=== PATIENT | female | born 1940 | race Caucasian/White ===

== ENCOUNTER 2017-01-22 04:03 | Inpatient (IN) | payer MEDICARE, BC ==
[2017-01-22] VITALS (8 sets, daily range): BP systolic 107–154; BP diastolic 57–80
[~2017-01-22] VITALS: Ht 162.6 cm; Wt 137.0 kg
[2017-01-22 04:14] LABS: ABG BASE EXCESS 1.3; ABG PCO2 67.4 mmHg (35.0-45.0)
[2017-01-22 04:15] LABS: ABG ALLEN TEST POSITIVE
[2017-01-22] MEDS ORDERED: NORCO 5-325 TA1 EAC1 ORAL (04:22)
[2017-01-22] MEDS ORDERED: AMBIEN10 M1 ORAL (04:22)
[2017-01-22] MEDS ORDERED: LASIX80 MG ORAL (04:22)
[2017-01-22] MEDS ORDERED: DUONEB 0.5-3(2.53 ML HHN (04:22)
[2017-01-22] MEDS ORDERED: JANUVIA50 MG ORAL (04:22)
[2017-01-22] MEDS ORDERED: CALCIUM CARBON500 M1 PO (04:22)
[2017-01-22] MEDS ORDERED: HUMALOG100 UNIT/4 SUBQ (04:22)
[2017-01-22] MEDS ORDERED: CARAFATE1 GM/10 M1 ORAL (04:22)
[2017-01-22] MEDS ORDERED: GLUCOTROL XL5 MG ORAL (04:22)
[2017-01-22] MEDS ORDERED: ACETAMINOPHEN325 M1 ORAL (04:22)
[2017-01-22] MEDS ORDERED: DICLOFENAC SOD100 G1 TP (04:22)
[2017-01-22] MEDS ORDERED: EPOGEN10000 UNIT SUBQ (04:22)
[2017-01-22] MEDS ORDERED: ALLOPURINOL300 M1 ORAL (04:22)
[2017-01-22] MEDS ORDERED: FERROUS SULFAT325 MG ORAL (04:22)
[2017-01-22 04:32] LABS: BASOPHILS % (AUTO) 0.6 % (0.0-2.0); EOSINOPHILS % (AUTO) 1.9 % (0.0-3.0); LYMPHOCYTES % (AUTO) 12.7 % (20.0-45.0); MEAN CORPUSCULAR HEMOGLOBIN 25.9 PG (27.0-31.0); MEAN CORPUSCULAR HGB CONC 28.5 G/DL (32.0-36.0); MEAN CORPUSCULAR VOLUME 91 FL (80-99); MEAN PLATELET VOLUME 6.1 FL (6.5-10.1); MONOCYTES % (AUTO) 8.8 % (1.0-10.0); PLATELET COUNT 179 K/UL (150-450); RED BLOOD COUNT 3.53 M/UL (4.20-5.40); WHITE BLOOD COUNT 6.4 K/UL (4.8-10.8)
--- NOTE | 2017-01-22 04:36 | Emergency Room Report ---
History of Present Illness General Chief Complaint: Dyspnea/Respdistress Source: Medical Record Present Illness HPI 76-year-old female coming from retirement history of diabetes, morbid obesity , atrial fibrillation, heart failure, CKG if, nonambulatory, baseline mental status is confused per EMS, presenting with hypoxia. EMS arrived patient was satting 75 on room air came up to 95 with nasal cannula. Patient currently oriented to person only, unable to give full history. No anticoagulations seen on the patient's med list Patient came with DO NOT RESUSCITATE form that was improperly filled out so at this time patient is full code Allergies: Coded Allergies: No Known Allergies (Unverified , 01/22/17) Patient History Past Medical History: see triage record Past Surgical History: none Pertinent Family History: none Reviewed Nursing Documentation: PMH: Agreed, PSxH: Agreed Nursing Documentation-PMH Hx Cardiac Problems: Yes - A FIB,A FLUTTER Hx Hypertension: Yes Hx Diabetes: Yes Hx Gastrointestinal Problems: Yes - GERD,CKD Review of Systems All Other Systems: limited - dementia Physical Exam Vital Signs Date Time Temp Pulse Resp B/P (MAP) Pulse Ox O2 Delivery O2 Flow Rate FiO2 01/22/17 04:00 97.5 93 20 135/66 85 Room Air Sp02 EP Interpretation: reviewed, abnormal - 79 onRA, 100 on NRB General Appearance: other - Elderly obese chronically ill-appearing female, appears to be in respiratory distress, speaking in 2 word sentences, confused Head: normocephalic, atraumatic Eyes: bilateral eye normal inspection, bilateral eye PERRL, bilateral eye EOMI ENT: normal ENT inspection, normal pharynx, dry mucus membranes Neck: normal inspection, full range of motion, supple Respiratory: respiratory distress, other - Limited auscultation due to poor respiratory effort, chest symmetrical Cardiovascular #1: no edema, normal capillary refill, irregularly irregular Cardiovascular #2: 2+ radial (R), 2+ radial (L) Gastrointestinal: normal inspection, non tender, soft, non-distended, no guarding Musculoskeletal: normal inspection, back normal, normal range of motion, non- tender Neurologic: responsive, sensory intact, other - Moving extremities spontaneously and on command. Psychiatric: other - Dementia Skin: normal inspection, normal color, no rash, warm/dry, normal turgor Procedures Critical Care Time Critical Care Time 40 minutes of CC time 76-year-old female with hypoxia VS: Hypoxic and tachypneic Airway patent. PLAN: IV access, labs, lactate, Blood/Urine Cx, Abx BiPAP, antibiotic Anticipate admissionto [facility] CC time also includes review of labs, review of EMR, discussion with family and paperwork from SNF, d/w hospitalist CC could include dosing of pressors, additional Abx CC time does not include procedures Medical Decision Making Diagnostic Impression: Primary Impression: Hypoxia Additional Impressions: Respiratory distress Congestive heart failure UTI (urinary tract infection) ER Course 76-year-old female with pmhx hypertension, diabetes, A. fib, CHF p/w SOB/ hypoxia coming from retirement DDX: CHF exacerbation, ACS, pneumonia, asthma/copd Plan: IV access, cathode washer, nonrebreather obtain basic labs including blood gas, troponin, BNP Nitro, lasix, Will consider BIPAP for persistent or worsening respiratory status Anticipate admission ER course: Patient appears clinically dehydrated, however fluid overloaded on chest x-ray. BNP is elevated. BiPAP started. CO2 on blood gas elevated Hypoxic on room air at 85, 100 on BiPAP Patient's blood pressure not amenable to nitroglycerin Patients condition remains serious. Extensive conversation held with the patient's power of parts analyst Zion Perez ( patients brother), states that patient has had a decline in her mental status during the last 3-4 weeks, patient has stated multiple times to him that she wants to be DNR/DNI, not in her wish to be intubated. Currently we have a DO NOT RESUSCITATE form that is not properly signed, however after conversation held with power of parts analyst, she will remain dnr/dni. his phone number is Disposition: Patient to be admitted to [facility] Patient requires inpatient admission for close monitoring of respiratory status/ continuation of BIPAP, further workup including serial troponin and EKGs, possible diuresis and monitoring of electrolytes. Endorsed to Dr. moore who has accepted patient for admission Please note that this Emergency Department Report was dictated using [employer] technology software, occasionally this can lead to erroneous entry secondary to interpretation by the dictation equipment. Laboratory Tests Test 01/22/17 04:07 01/22/17 04:10 01/22/17 05:40 Arterial Blood pH 7.259 (7.350-7.450) Arterial Blood Partial Pressure CO2 67.4 mmHg (35.0-45.0) *H Arterial Blood Partial Pressure O2 317.4 mmHg (75.0-100.0) H Arterial Blood HCO3 29.5 mmol/L (22.0-26.0) H Arterial Blood Oxygen Saturation 99.6 % (92.0-98.0) H Arterial Blood Base Excess 1.3 Charbel Test Positive White Blood Count 6.4 K/UL (4.8-10.8) Red Blood Count 3.53 M/UL (4.20-5.40) L Hemoglobin 9.1 G/DL (12.0-16.0) L Hematocrit 32.1 % (37.0-47.0) L Mean Corpuscular Volume 91 FL (80-99) Mean Corpuscular Hemoglobin 25.9 PG (27.0-31.0) L Mean Corpuscular Hemoglobin Concent 28.5 G/DL (32.0-36.0) L Red Cell Distribution Width 25.0 % (11.6-14.8) H Platelet Count 179 K/UL (150-450) Mean Platelet Volume 6.1 FL (6.5-10.1) L Neutrophils (%) (Auto) 76.0 % (45.0-75.0) H Lymphocytes (%) (Auto) 12.7 % (20.0-45.0) L Monocytes (%) (Auto) 8.8 % (1.0-10.0) Eosinophils (%) (Auto) 1.9 % (0.0-3.0) Basophils (%) (Auto) 0.6 % (0.0-2.0) Prothrombin Time 11.6 SEC (9.30-11.50) H Prothrombin Time INR 1.1 (0.9-1.1) PTT 25 SEC (23-33) Sodium Level 139 mEQ/L (135-145) Potassium Level 4.2 mEQ/L (3.4-4.9) Chloride Level 94 mEQ/L (98-107) L Carbon Dioxide Level 30 mEQ/L (20-30) Anion Gap 15 (5-15) Blood Urea Nitrogen 67 mg/dL (7-23) H Creatinine 3.3 mg/dL (0.5-0.9) H Estimate Glomerular Filtration Rate mL/min (>60) Glucose Level 80 mg/dL (74-106) Lactic Acid Level 1.20 mmol/L (0.66-2.22) Calcium Level 9.4 mg/dL (8.6-10.2) Total Bilirubin 0.5 mg/dL (0.0-1.2) Aspartate Amino Transferase (AST) 27 U/L (5-40) Alanine Aminotransferase (ALT) 7 U/L (3-33) Alkaline Phosphatase 53 U/L (35-104) Total Creatine Kinase 50 U/L (26-140) Creatine Kinase MB 5.0 ng/mL (< 3.8) H Creatine Kinase MB Relative Index 10.0 Troponin I < 0.30 ng/mL (<=0.30) Pro-B-Type Natriuretic Peptide 33308 pg/mL (0-450) H Total Protein 6.9 g/dL (6.6-8.7) Albumin 3.5 g/dL (3.5-5.2) Globulin 3.4 g/dL Albumin/Globulin Ratio 1.0 (1.0-2.7) Urine Color Yellow Urine Appearance Cloudy Urine pH 5 (4.5-8.0) Urine Specific [place] 1.015 (1.005-1.035) Urine Protein 2+ (NEGATIVE) H Urine Glucose (UA) Negative (NEGATIVE) Urine Ketones Negative (NEGATIVE) Urine Occult Blood 5+ (NEGATIVE) H Urine Nitrite Negative (NEGATIVE) Urine Bilirubin Negative (NEGATIVE) Urine Urobilinogen Normal MG/DL (0.0-1.0) Urine Leukocyte Esterase 3+ (NEGATIVE) H Urine RBC Tntc /HPF (0 - 2) H Urine WBC Tntc /HPF (0 - 2) H Urine Squamous Epithelial Cells Few /LPF (NONE/OCC) Urine Bacteria Many /HPF (NONE) H EKG Diagnostic Results Rate: normal Rhythm: other - afib ST Segments: other - twi I and aVL Rhythm Strip Diag. Results EP Interpretation: yes Rate: 86 Rhythm: other - afib Chest X-Ray Diagnostic Results Chest X-Ray Diagnostic Results : # of Views/Limited/Complete: 1 View Indication: Shortness of Breath EP Interpretation: Yes Interpretation: other - cardiomegaly, pulm basc congestion Impression: Other - chf/fluid overload Electronically Signed by: Electronically signed by Agustin Holloway MD Last Vital Signs Date Time Temp Pulse Resp B/P (MAP) Pulse Ox O2 Delivery O2 Flow Rate FiO2 01/22/17 04:00 97.5 93 20 135/66 85 Room Air Disposition: ADMITTED INPATIENT Condition: Critical Agustin Holloway M.D. Jan 22, 2017 04:36
[2017-01-22 04:48] LABS: INR 1.1 (0.9-1.1); PROTHROMBIN TIME 11.6 SEC (9.30-11.50)
[2017-01-22 04:54] LABS: ALANINE AMINOTRANSFERASE 7 U/L (3-33); ANION GAP 15 (5-15); ASPARTATE AMINO TRANSFERASE 27 U/L (5-40); CALCIUM 9.4 mg/dL (8.6-10.2); CARBON DIOXIDE 30 mEQ/L (20-30); CHLORIDE 94 mEQ/L (98-107); CREATININE 3.3 mg/dL (0.5-0.9); HEMOLYSIS 115; POTASSIUM 4.2 mEQ/L (3.4-4.9); SODIUM 139 mEQ/L (135-145); TOTAL PROTEIN 6.9 g/dL (6.6-8.7)
[2017-01-22 04:57] LABS: TROPONIN I < 0.30 ng/mL (<=0.30)
[2017-01-22] MEDS ORDERED: Morphine Sulfate 4mg/ml Inj IVP ONE (05:00)
[2017-01-22] MEDS ORDERED: Vancomycin 1.5gm/D5W 250ml 250 ML IVPB ONE (05:15)
[2017-01-22] MEDS ORDERED: Piperacillin/Tazobactam 3.375 GM in NS 110 ML IVPB ONE (05:15)
[2017-01-22] MEDS ORDERED: Zosyn 3.375gm inj ONE (05:17)
[2017-01-22 05:57] LABS: APPEARANCE,URINE CLOUDY; KETONES,URINE NEGATIVE (NEGATIVE); LEUKOCYTE ESTERASE ,URINE 3+ (NEGATIVE); NITRITE,URINE NEGATIVE (NEGATIVE); PH,URINE 5 (4.5-8.0); PROTEIN,URINE 2+ (NEGATIVE); UROBILINOGEN,URINE NORMAL MG/DL (0.0-1.0)
[2017-01-22 06:12] LABS: BACTERIA,URINE MANY /HPF; RBC,URINE TNTC /HPF (0 - 2); SQUAMOUS EPITHELIAL CELL,UR FEW /LPF (NONE/OCC); WBC,URINE TNTC /HPF (0 - 2)
[2017-01-22] MEDS ORDERED: Albuterol/Ipratropium 3ml neb HHN PRN (07:00)
[2017-01-22] MEDS ORDERED: Miralax 17gm pkt ORAL PRN (07:00)
[2017-01-22] MEDS: Heparin 5000 units/ml inj SUBQ SCH ×2 (08:27→20:58)
--- NOTE | 2017-01-22 09:49 | Consultation ---
History of Present Illness General Date patient seen: Jan 22, 2017 Chief Complaint: Dyspnea/Respdistress Present Illness HPI 76-year-old female with morbid obesity, CHF, renal insufficiency, gout, DM, TALITA , coming from group home, presenting with hypoxia. Pt was in respiratory failure in ER and was put on BIPAP. She was diagnosed to have acute pulmonary edema and transferred to [facility]. Patient currently oriented to person only, unable to give full history. Allergies: Coded Allergies: No Known Allergies (Unverified , 01/22/17) Medication History Scheduled Allopurinol* (Allopurinol*), 300 MG ORAL DAILY, (Reported) Calcium Carbonate (Calcium Carbonate), 500 MG PO BID, (Reported) Epoetin Ash (Epogen), 10,000 UNIT SUBQ Q TUESDAY, (Reported) Ferrous Sulfate* (Ferrous Sulfate*), 325 MG ORAL DAILY, (Reported) Furosemide* (Lasix*), 80 MG ORAL BID, (Reported) Glipizide* (Glucotrol Xl*), 2.5 MG ORAL ACBREAKFAST, (Reported) Ipratropium/Albuterol Sulfate (DuoNeb 0.5-3(2.5)mg/3ml), 3 ML HHN EVERY 6 HOURS, (Reported) Sitagliptin (Januvia), 50 MG ORAL DAILY, (Reported) Sucralfate (Carafate), 2 GM ORAL BID, (Reported) Scheduled PRN Acetaminophen* (Acetaminophen 325MG Tablet*), 650 MG ORAL Q6H PRN for For Pain, (Reported) Diclofenac Sodium (Diclofenac Sodium), 2 GM TP FOUR TIMES A DAY PRN for For Pain , (Reported) Hydrocodone Bit/Acetaminophen 5-325* ([place] 5-325 Tablet*), 1 TAB ORAL EVERY 6 HOURS PRN for For Pain, (Reported) Zolpidem Tartrate* (Ambien*), 10 MG ORAL HS PRN for Insomnia, (Reported) Miscellaneous Medications Insulin Lispro (Humalog), 0 SUBQ, (Reported) Patient History Healthcare decision maker Resuscitation status Advanced Directive on File Past Medical/Surgical History Past Medical/Surgical History: (1) Morbid obesity (2) Diabetes mellitus (3) CHF (congestive heart failure) (4) TALITA (obstructive sleep apnea) Review of Systems All Other Systems: negative except mentioned in HPI Physical Exam General Appearance: morbidly obese Lines, tubes and drains: peripheral HEENT: normocephalic, atraumatic Neck: non-tender, supple Respiratory/Chest: rhonchi - left, rhonchi - right Cardiovascular/Chest: normal peripheral pulses, normal rate Abdomen: normal bowel sounds, soft Genitourinary/Rectal: normal genital exam, normal rectal exam Extremities: moderate edema Skin Exam: normal pigmentation Last 24 Hour Vital Signs Date Time Temp Pulse Resp B/P (MAP) Pulse Ox O2 Delivery O2 Flow Rate FiO2 01/22/17 08:12 73 01/22/17 08:00 97.3 66 21 134/57 99 Bi-pap 50 01/22/17 07:28 74 17 96 Facial 50 01/22/17 07:17 98.2 78 16 110/78 98 Bi-pap 15.0 50 01/22/17 07:17 98.2 78 16 110/78 98 Bi-pap 15.0 50 01/22/17 06:32 97.5 75 16 107/80 98 Bi-pap 15.0 50 01/22/17 05:44 15.0 50 01/22/17 05:40 98.2 77 16 118/72 98 Bi-pap 15.0 50 01/22/17 05:27 92 20 Bi-pap 50 01/22/17 05:26 92 20 100 Facial 50 01/22/17 05:00 80 22 Non-Rebreather 15.0 100 01/22/17 04:43 97.5 87 20 124/76 85 Room Air 01/22/17 04:00 97.5 93 20 135/66 85 Room Air Laboratory Tests Test 01/22/17 04:07 01/22/17 04:10 01/22/17 05:40 Arterial Blood pH 7.259 (7.350-7.450) Arterial Blood Partial Pressure CO2 67.4 mmHg (35.0-45.0) *H Arterial Blood Partial Pressure O2 317.4 mmHg (75.0-100.0) H Arterial Blood HCO3 29.5 mmol/L (22.0-26.0) H Arterial Blood Oxygen Saturation 99.6 % (92.0-98.0) H Arterial Blood Base Excess 1.3 Charbel Test Positive White Blood Count 6.4 K/UL (4.8-10.8) Red Blood Count 3.53 M/UL (4.20-5.40) L Hemoglobin 9.1 G/DL (12.0-16.0) L Hematocrit 32.1 % (37.0-47.0) L Mean Corpuscular Volume 91 FL (80-99) Mean Corpuscular Hemoglobin 25.9 PG (27.0-31.0) L Mean Corpuscular Hemoglobin Concent 28.5 G/DL (32.0-36.0) L Red Cell Distribution Width 25.0 % (11.6-14.8) H Platelet Count 179 K/UL (150-450) Mean Platelet Volume 6.1 FL (6.5-10.1) L Neutrophils (%) (Auto) 76.0 % (45.0-75.0) H Lymphocytes (%) (Auto) 12.7 % (20.0-45.0) L Monocytes (%) (Auto) 8.8 % (1.0-10.0) Eosinophils (%) (Auto) 1.9 % (0.0-3.0) Basophils (%) (Auto) 0.6 % (0.0-2.0) Prothrombin Time 11.6 SEC (9.30-11.50) H Prothromb Time International Ratio 1.1 (0.9-1.1) Activated Partial Thromboplast Time 25 SEC (23-33) Sodium Level 139 mEQ/L (135-145) Potassium Level 4.2 mEQ/L (3.4-4.9) Chloride Level 94 mEQ/L (98-107) L Carbon Dioxide Level 30 mEQ/L (20-30) Anion Gap 15 (5-15) Blood Urea Nitrogen 67 mg/dL (7-23) H Creatinine 3.3 mg/dL (0.5-0.9) H Estimat Glomerular Filtration Rate mL/min (>60) Glucose Level 80 mg/dL (74-106) Lactic Acid Level 1.20 mmol/L (0.66-2.22) Calcium Level 9.4 mg/dL (8.6-10.2) Total Bilirubin 0.5 mg/dL (0.0-1.2) Aspartate Amino Transf (AST/SGOT) 27 U/L (5-40) Alanine Aminotransferase (ALT/SGPT) 7 U/L (3-33) Alkaline Phosphatase 53 U/L (35-104) Total Creatine Kinase 50 U/L (26-140) Creatine Kinase MB 5.0 ng/mL (< 3.8) H Creatine Kinase MB Relative Index 10.0 Troponin I < 0.30 ng/mL (<=0.30) Pro-B-Type Natriuretic Peptide 20181 pg/mL (0-450) H Total Protein 6.9 g/dL (6.6-8.7) Albumin 3.5 g/dL (3.5-5.2) Globulin 3.4 g/dL Albumin/Globulin Ratio 1.0 (1.0-2.7) Urine Color Yellow Urine Appearance Cloudy Urine pH 5 (4.5-8.0) Urine Specific [place] 1.015 (1.005-1.035) Urine Protein 2+ (NEGATIVE) H Urine Glucose (UA) Negative (NEGATIVE) Urine Ketones Negative (NEGATIVE) Urine Occult Blood 5+ (NEGATIVE) H Urine Nitrite Negative (NEGATIVE) Urine Bilirubin Negative (NEGATIVE) Urine Urobilinogen Normal MG/DL (0.0-1.0) Urine Leukocyte Esterase 3+ (NEGATIVE) H Urine RBC Tntc /HPF (0 - 2) H Urine WBC Tntc /HPF (0 - 2) H Urine Squamous Epithelial Cells Few /LPF (NONE/OCC) Urine Bacteria Many /HPF (NONE) H Height (Feet): 5 Height (Inches): 4.00 Weight (Pounds): 400 Medications Current Medications Medications (Trade) Dose Ordered Sig/Johan Route PRN Reason Start Time Stop Time Status Last Admin Dose Admin Acetaminophen (Tylenol) 650 mg Q4H PRN ORAL T>100.5 01/22/17 07:00 02/21/17 06:59 Albuterol/ Ipratropium (DuoNeb 0.5-3(2.5)mg/3ml) 3 ml Q4H PRN HHN Shortness of Breath 01/22/17 07:00 01/27/17 06:59 Allopurinol (Allopurinol) 300 mg DAILY ORAL 01/22/17 09:00 02/21/17 08:59 Dextrose (Dextrose 50%) STAT PRN IV Hypoglycemia 01/22/17 07:00 02/21/17 06:59 Furosemide 100 mg/ Dextrose 100 ml @ 10 mls/hr Q10H IV 01/22/17 09:45 02/21/17 09:44 UNV Heparin Sodium (Porcine) (Heparin 5000 units/ml) 5,000 units EVERY 12 HOURS SUBQ 01/22/17 09:00 02/21/17 08:59 01/22/17 08:27 Insulin Aspart (NovoLOG) BEFORE MEALS AND HS SUBQ 01/22/17 11:30 02/21/17 11:29 Ondansetron HCl (Zofran) 4 mg Q6H PRN IVP Nausea & Vomiting 01/22/17 07:00 02/21/17 06:59 Polyethylene Glycol (Miralax) 17 gm DAILYPRN PRN ORAL Constipation 01/22/17 07:00 02/21/17 06:59 Temazepam (Restoril) 15 mg HSPRN PRN ORAL Insomnia 01/22/17 21:00 01/29/17 20:59 Assessment/Plan Problem List: (1) Respiratory distress ICD Codes: R06.00 - Dyspnea, unspecified SNOMED: 435787022 (2) Congestive heart failure ICD Codes: I50.9 - Heart failure, unspecified SNOMED: 83415347 (3) Morbid obesity ICD Codes: E66.01 - Morbid (severe) obesity due to excess calories SNOMED: 647650049, 63192793929181 (4) Diabetes mellitus ICD Codes: E11.9 - Type 2 diabetes mellitus without complications SNOMED: 83486644 (5) TALITA (obstructive sleep apnea) ICD Codes: G47.33 - Obstructive sleep apnea (adult) (pediatric) SNOMED: 13893175 Assessment/Plan titrate bipap IV diuretics check intake and output sliding scale titrate fio2 to sat of 92% dvt prophylaxis renal w/u LINDY OJRDAN Jan 22, 2017 09:49
[2017-01-22 10:23] LABS: URIC ACID 7.3 mg/dL (3.0-7.5)
--- NOTE | 2017-01-22 11:43 | Diagnostic Imaging Report ---
Indication: Shortness of breath Comparison: None Findings: Single view the chest demonstrates cardiomegaly with bilateral congestive changes. No significant pleural effusions are identified. Bones are osteopenic. Impression: Cardiomegaly with bilateral congestive changes.
[2017-01-22] MEDS: NovoLOG Insulin Flexpen SUBQ SCH ×3 (12:08→21:00)
[2017-01-22 12:58] LABS: APPEARANCE,URINE CLOUDY; KETONES,URINE NEGATIVE (NEGATIVE); LEUKOCYTE ESTERASE ,URINE 3+ (NEGATIVE); NITRITE,URINE NEGATIVE (NEGATIVE); PH,URINE 5 (4.5-8.0); PROTEIN,URINE 3+ (NEGATIVE); UROBILINOGEN,URINE NORMAL MG/DL (0.0-1.0)
[2017-01-22 13:07] LABS: AMORPHOUS SEDIMENT,UR FEW /LPF; BACTERIA,URINE MODERATE /HPF; RBC,URINE 30-40 /HPF (0 - 2); SQUAMOUS EPITHELIAL CELL,UR OCCASIONAL /LPF (NONE/OCC); WBC,URINE TNTC /HPF (0 - 2)
[2017-01-22 14:18] LABS: TROPONIN I < 0.30 ng/mL (<=0.30)
[2017-01-22] MEDS: Nystatin Powder 100,000 units/gm 15gm TOPIC SCH ×2 (15:04→23:00)
--- NOTE | 2017-01-22 15:10 | History & Physical ---
History and Physical History & Physicial Dictated for Int Med-Dr Jones no. [id number]. NICK OATES Jan 22, 2017 15:10
[2017-01-23] VITALS: BP 139/77
[2017-01-23 04:00] VITALS: BP 145/85
--- NOTE | 2017-01-23 04:46 | History and Physical Report ---
DATE OF ADMISSION: 01/22/[address] Jones. Chief Complaint: The patient is a 76-year-old white female, presents with a chief complaint of shortness of breath. History Of Present Illness: The patient was admitted to [facility] in November 2016 for shortness of breath. The patient was followed at [facility] by Dr. Jones. The patient was discharged to [facility] approximately three and half weeks ago. The patient herself is unable to contribute much to the history and physical. The patient's is at the bedside and provides much of the history. The patient's , Selwyn Blanco. The patient began to experience shortness of breath earlier this morning, 01/22/2017. EMS was called. The patient was transported to [facility]. The patient was found to be hypoxemic with congestive heart failure. The patient is admitted for shortness of breath and congestive heart failure. PAST MEDICAL HISTORY: Significant for: 1. Type 2 diabetes. 2. Congestive heart failure. 3. History of renal failure. 4. History of colon cancer. PAST SURGICAL HISTORY: 1. Significant for colon resection in 1999, status post chemotherapy and radiation therapy. 2. Colon resection in 2012. MEDICATIONS: Current medications from [facility], 1. Tylenol 650 mg one tablet p.o. q.4 h. p.r.n. 2. Allopurinol 300 mg p.o. daily. 3. Ambien 10 mg one tablet p.o. at bedtime. 4. Calcium carbonate 1000 mg p.o. twice daily. 5. Carafate 2 g p.o. twice daily. 6. Diclofenac gel applied to knees four times daily p.r.n. pain. 7. DuoNeb nebulized q.6 h. p.r.n. 8. Epogen 10,000 units subcutaneously every Tuesday. 9. Iron sulfate 325 mg one tablet p.o. daily. 10. Furosemide 80 mg one tablet p.o. twice daily. 11. Glucotrol XL 2.5 mg p.o. daily. 12. [place] 10/325 mg one tablet p.o. q.4 h. p.r.n. 13. Lispro sliding scale. 14. Januvia 50 mg one tablet p.o. daily. 15. Multivitamin p.o. daily. 16. Protonix 40 mg p.o. daily. 17. Patanol 0.1% ophthalmic solution applied twice daily to both eyes. 18. Potassium chloride 40 mEq. p.o. daily. 19. Sildenafil citrate 20 mg p.o. three times daily. 20. Zoloft 100 mg one tablet p.o. daily. ALLERGIES: No known drug allergies. Social History: The patient is . The patient denies tobacco use. The patient denies alcohol use. PHYSICAL EXAMINATION: Vital Signs: Temperature 97.6, respirations 18, pulse 72, and blood pressure 144/63. The patient is currently on a face mask and saturating 98% at 50% FiO2. General: The patient is a well-developed, well-nourished, obese, lethargic female, in no apparent distress. HEENT: Eyes, pupils are equal and responsive to light and accommodation. Extraocular movements are intact. NECK: Supple without lymphadenopathy. Chest: Decreased breath sounds in the bilateral bases with crackles, otherwise clear to auscultation without wheezes or rales. Cardiovascular: Regular rate. S1 and S2 are normal without murmurs, rubs, or gallops. Abdomen: Soft, nontender, and nondistended. Positive bowel sounds. No evidence of hepatosplenomegaly. Currently, no rebound or guarding noted. EXTREMITIES: Negative for clubbing, cyanosis, or edema. RECTAL/GENITAL: Refused. Neurologic: Cranial nerves II through XII are grossly intact without focal deficits. Motor strength is 5/5. Laboratory and diagnostic Data: Laboratory studies, WBC 6.4, hemoglobin 9.1, hematocrit 32.1, and platelets 179,000. Sodium 139, potassium 4.2, chloride 94, CO2 30, BUN 67, creatinine 3.3, and glucose 80. Troponin less than 0.3. BNP elevated 24,049. Chest x-ray revealed pulmonary congestion bilaterally with cardiomegaly. ASSESSMENT: This is a 76-year-old white female with: 1. Shortness of breath. 2. Respiratory distress. 3. Acute congestive heart failure. 4. Hypoxemia. 5. Diabetes type 2. 6. Atrial fibrillation. 7. Congestive heart failure. 8. Morbid obesity. 9. History of colon cancer. TREATMENT: 1. Shortness of breath/respiratory distress/hypoxia. A Pulmonary consultation has been obtained with Dr. Cher Worthington. The patient is currently off BiPAP. The patient is currently tolerating a facemask. 2. Diabetes, type 2. Continue NovoLog sliding scale. 3. Atrial fibrillation/congestive heart failure. An echocardiogram is pending. A Cardiology consultation is pending with Dr. Boone. We will follow recommendations of Cardiology. 4. History of colon cancer. 5. Morbid obesity. Kareem Paz M.D. DR: Fozia JOB#: [id number] CC:
[2017-01-23 04:57] LABS: BASOPHILS % (AUTO) 0.4 % (0.0-2.0); EOSINOPHILS % (AUTO) 1.8 % (0.0-3.0); LYMPHOCYTES % (AUTO) 8.1 % (20.0-45.0); MEAN CORPUSCULAR HEMOGLOBIN 25.9 PG (27.0-31.0); MEAN CORPUSCULAR HGB CONC 28.5 G/DL (32.0-36.0); MEAN CORPUSCULAR VOLUME 91 FL (80-99); MEAN PLATELET VOLUME 5.7 FL (6.5-10.1); MONOCYTES % (AUTO) 7.3 % (1.0-10.0); NEUTROPHILS % (AUTO) 82.6 % (45.0-75.0); PLATELET COUNT 167 K/UL (150-450); RED BLOOD COUNT 3.49 M/UL (4.20-5.40); RED CELL DISTRIBUTION WIDTH 25.1 % (11.6-14.8); WHITE BLOOD COUNT 7.3 K/UL (4.8-10.8)
[2017-01-23 05:09] LABS: TROPONIN I < 0.30 ng/mL (<=0.30)
[2017-01-23 05:33] LABS: INR 1.1 (0.9-1.1); PROTHROMBIN TIME 11.4 SEC (9.30-11.50)
[2017-01-23 06:03] LABS: ANION GAP 15 (5-15); CALCIUM 9.4 mg/dL (8.6-10.2); CARBON DIOXIDE 32 mEQ/L (20-30); CHLORIDE 94 mEQ/L (98-107); CREATININE 3.6 mg/dL (0.5-0.9); HEMOLYSIS 0; POTASSIUM 3.5 mEQ/L (3.4-4.9); SODIUM 141 mEQ/L (135-145)
[2017-01-23] MEDS: NovoLOG Insulin Flexpen SUBQ SCH ×4 (06:30→21:00)
[2017-01-23 08:00] VITALS: BP 139/75
[2017-01-23] MEDS: Heparin 5000 units/ml inj SUBQ SCH ×2 (08:48→21:21)
[2017-01-23] MEDS: Nystatin Powder 100,000 units/gm 15gm TOPIC SCH ×2 (08:48→21:25)
[2017-01-23 08:50] LABS: BAND NEUTROPHILS % (MANUAL) 0 % (0-8); BASOPHILS % (MANUAL) 0 % (0-2); EOSINOPHILS % (MANUAL) 1 % (0-3); LYMPHOCYTES % (MANUAL) 12 % (20-45); NEUTROPHILS % (MANUAL) 78 % (45-75); NUCLEATED RED BLOOD CELLS 3 /100 WBC; PLATELET ESTIMATE ADEQUATE; PLATELET MORPHOLOGY NORMAL; STOMATOCYTES 1+; TOTAL CELLS COUNTED 100
[2017-01-23 08:51] LABS: ANISOCYTOSIS 1+; TARGET CELLS 1+
[2017-01-23 09:07] LABS: ERYTHROCYTE SEDIMENTATION RATE 26 MM/HR (0-30); PATH BLOOD SMEAR/OMC SEND TO PATHOLOGIST
--- NOTE | 2017-01-23 09:34 | Diagnostic Imaging Report ---
Indication: Shortness of breath Comparison: 01/22/2017 Findings: Single view the chest again shows cardiomegaly with bilateral congestive changes. Given differences in positioning and technique, there is no significant change from the prior exam. Impression: Cardiomegaly with bilateral congestive changes, not significantly changed from prior exam one day earlier.
--- NOTE | 2017-01-23 11:21 | Pulmonology Progress Note ---
Assessment/Plan Problems: (1) Respiratory distress (2) Congestive heart failure (3) Morbid obesity (4) Diabetes mellitus (5) TALITA (obstructive sleep apnea) Assessment/Plan titrate bipap haldodl for agitation check echo and renal US check sputum titrate fio2 Subjective ROS Limited/Unobtainable: No Interval Events: refusing BIPAP Constitutional: Reports: no symptoms HEENT: Repors: no symptoms Allergies: Coded Allergies: No Known Allergies (Unverified , 01/22/17) Objective Last 24 Hour Vital Signs Date Time Temp Pulse Resp B/P (MAP) Pulse Ox O2 Delivery O2 Flow Rate FiO2 01/23/17 08:00 97.0 76 20 139/75 94 Nasal Cannula 3.0 01/23/17 08:00 77 01/23/17 06:40 83 24 99 Facial 40 01/23/17 05:05 80 25 99 Facial 40 01/23/17 04:00 98.2 81 32 145/85 98 Bi-pap 40 01/23/17 04:00 77 01/23/17 03:19 76 33 97 Facial 40 01/23/17 01:05 77 28 99 Facial 40 01/23/17 00:00 98.1 74 32 139/77 98 Bi-pap 40 01/23/17 00:00 73 01/22/17 23:01 78 29 98 Facial 40 01/22/17 21:13 68 16 99 Facial 40 01/22/17 21:00 97.6 71 19 154/71 98 Bi-pap 40 01/22/17 20:00 79 01/22/17 19:06 74 30 99 Facial 40 01/22/17 17:00 40 01/22/17 16:53 71 17 100 Facial 40 01/22/17 16:41 97.8 76 17 139/79 100 Bi-pap 50 01/22/17 16:00 50 01/22/17 15:55 70 16 97 Facial 50 01/22/17 15:33 72 01/22/17 13:15 76 16 98 Facial 50 01/22/17 12:13 97.6 72 18 144/63 Bi-pap 01/22/17 12:00 15.0 50 01/22/17 11:53 64 General Appearance: WD/WN HEENT: normocephalic, atraumatic Respiratory/Chest: chest wall non-tender, lungs clear Breasts: no masses Cardiovascular: normal peripheral pulses Abdomen: normal bowel sounds, soft, non tender Genitourinary: normal external genitalia Extremities: no cyanosis Skin: no lesions 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: 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 normal, no motor/sensory deficits Lymphatic: no neck adenopathy Microbiology Date/Time Source Procedure Growth Status 01/22/17 04:25 Blood Blood Culture - Preliminary NO GROWTH AFTER 24 HOURS Resulted 01/22/17 04:10 Blood Blood Culture - Preliminary NO GROWTH AFTER 24 HOURS Resulted Laboratory Tests 01/22/17 11:45: Urine Color Yellow, Urine Appearance Cloudy, Urine pH 5, Urine Specific [place] 1.015, Urine Protein 3+H, Urine Glucose (UA) Negative, Urine Ketones Negative, Urine Occult Blood 5+H, Urine Nitrite Negative, Urine Bilirubin Negative, Urine Urobilinogen Normal, Urine Leukocyte Esterase 3+H, Urine RBC 30-40H, Urine WBC TntcH, Urine Squamous Epithelial Cells Occasional, Urine Amorphous Sediment FewH , Urine Bacteria ModerateH, Urine Eosinophils None seen, Urine Random Sodium 18 , Urine Potassium Timed 28 01/22/17 13:20: Troponin I < 0.30 01/23/17 03:30: Troponin I < 0.30, White Blood Count 7.3, Red Blood Count 3.49L, Hemoglobin 9.0L , Hematocrit 31.7L, Mean Corpuscular Volume 91, Mean Corpuscular Hemoglobin 25.9L, Mean Corpuscular Hemoglobin Concent 28.5L, Red Cell Distribution Width 25.1H, Platelet Count 167, Mean Platelet Volume 5.7L, Neutrophils (%) (Auto) 82.6H, Lymphocytes (%) (Auto) 8.1L, Monocytes (%) (Auto) 7.3, Eosinophils (%) ( Auto) 1.8, Basophils (%) (Auto) 0.4, Differential Total Cells Counted 100, Neutrophils % (Manual) 78H, Lymphocytes % (Manual) 12L, Monocytes % (Manual) 9, Eosinophils % (Manual) 1, Basophils % (Manual) 0, Band Neutrophils 0, Nucleated Red Blood Cells 3, Platelet Estimate Adequate, Platelet Morphology Normal, Anisocytosis 1+, Target Cells 1+, Stomatocytes 1+, Erythrocyte Sedimentation Rate 26, Reticulocyte Count 3.0H, Prothrombin Time 11.4, Prothromb Time International Ratio 1.1, Activated Partial Thromboplast Time 29, Sodium Level 141, Potassium Level 3.5, Chloride Level 94L, Carbon Dioxide Level 32H, Anion Gap 15, Blood Urea Nitrogen 67H, Creatinine 3.6H, Estimat Glomerular Filtration Rate , Glucose Level 74, Calcium Level 9.4, Iron Level 33L, Total Iron Binding Capacity 280, Percent Iron Saturation 12L, Unsaturated Iron Binding 247, Lactate Dehydrogenase 208, Pro-B-Type Natriuretic Peptide 20857R, Carcinoembryonic Antigen 5.7H, Vitamin B12 Level 535, Folate [Pending] Current Medications Medications (Trade) Dose Ordered Sig/Johan Route PRN Reason Start Time Stop Time Status Last Admin Dose Admin Acetaminophen (Tylenol) 650 mg Q4H PRN ORAL T>100.5 01/22/17 07:00 02/21/17 06:59 Albuterol/ Ipratropium (DuoNeb 0.5-3(2.5)mg/3ml) 3 ml Q4H PRN HHN Shortness of Breath 01/22/17 07:00 01/27/17 06:59 Allopurinol (Allopurinol) 300 mg DAILY ORAL 01/22/17 09:00 02/21/17 08:59 01/23/17 08:46 Dextrose (Dextrose 50%) STAT PRN IV Hypoglycemia 01/22/17 07:00 02/21/17 06:59 Furosemide 100 mg/ Dextrose 100 ml @ 10 mls/hr Q10H IV 01/22/17 11:30 02/21/17 11:29 01/23/17 08:09 Heparin Sodium (Porcine) (Heparin 5000 units/ml) 5,000 units EVERY 12 HOURS SUBQ 01/22/17 09:00 02/21/17 08:59 01/23/17 08:48 Insulin Aspart (NovoLOG) BEFORE MEALS AND HS SUBQ 01/22/17 11:30 02/21/17 11:29 Nystatin (Nystop Powder) 1 applic Q12HR TOPIC 01/22/17 14:00 02/21/17 13:59 01/23/17 08:48 Ondansetron HCl (Zofran) 4 mg Q6H PRN IVP Nausea & Vomiting 01/22/17 07:00 02/21/17 06:59 Polyethylene Glycol (Miralax) 17 gm DAILYPRN PRN ORAL Constipation 01/22/17 07:00 02/21/17 06:59 Temazepam (Restoril) 15 mg HSPRN PRN ORAL Insomnia 01/22/17 21:00 01/29/17 20:59 LINDY JORDAN Jan 23, 2017 11:21
[2017-01-23] MEDS ORDERED: Haloperidol 5mg/ml Inj IVPB PRN (11:30)
[2017-01-23 12:12] VITALS: BP 145/76
--- NOTE | 2017-01-23 13:18 | Internal Med Progress Note ---
Subjective Date of Service: Jan 23, 2017 Physician Name Nick Oates Attending Physician Jaren Jones MD Current Medications Medications (Trade) Dose Ordered Sig/Johan Route PRN Reason Start Time Stop Time Status Last Admin Dose Admin Acetaminophen (Tylenol) 650 mg Q4H PRN ORAL T>100.5 01/22/17 07:00 02/21/17 06:59 Albuterol/ Ipratropium (DuoNeb 0.5-3(2.5)mg/3ml) 3 ml Q4H PRN HHN Shortness of Breath 01/22/17 07:00 01/27/17 06:59 Allopurinol (Allopurinol) 300 mg DAILY ORAL 01/22/17 09:00 02/21/17 08:59 01/23/17 08:46 Dextrose (Dextrose 50%) STAT PRN IV Hypoglycemia 01/22/17 07:00 02/21/17 06:59 Furosemide 100 mg/ Dextrose 100 ml @ 10 mls/hr Q10H IV 01/22/17 11:30 02/21/17 11:29 01/23/17 08:09 Haloperidol Lactate (Haldol) 5 mg Q4H PRN IM agitation 01/23/17 15:30 02/22/17 15:29 Heparin Sodium (Porcine) (Heparin 5000 units/ml) 5,000 units EVERY 12 HOURS SUBQ 01/22/17 09:00 02/21/17 08:59 01/23/17 08:48 Insulin Aspart (NovoLOG) BEFORE MEALS AND HS SUBQ 01/22/17 11:30 02/21/17 11:29 Nystatin (Nystop Powder) 1 applic Q12HR TOPIC 01/22/17 14:00 02/21/17 13:59 01/23/17 08:48 Ondansetron HCl (Zofran) 4 mg Q6H PRN IVP Nausea & Vomiting 01/22/17 07:00 02/21/17 06:59 Polyethylene Glycol (Miralax) 17 gm DAILYPRN PRN ORAL Constipation 01/22/17 07:00 02/21/17 06:59 Temazepam (Restoril) 15 mg HSPRN PRN ORAL Insomnia 01/22/17 21:00 01/29/17 20:59 Allergies: Coded Allergies: No Known Allergies (Unverified , 01/22/17) ROS Limited/Unobtainable: No Constitutional: Reports: no symptoms HEENT: Reports: no symptoms Cardiovascular: Reports: no symptoms Respiratory: Reports: shortness of breath Gastrointestinal/Abdominal: Reports: no symptoms Genitourinary: Reports: no symptoms 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: Reports: anxiety Subjective 76 YO F admitted with respiratory distress. Now CHF Exacerbation. RADHA. Cover for Int Med-Dr Jones. Await cardiology consult. Agitated requiring 1:1 sitter. Objective Last Vital Signs Date Time Temp Pulse Resp B/P (MAP) Pulse Ox O2 Delivery O2 Flow Rate FiO2 01/23/17 12:12 97.2 85 22 145/76 96 Venturi Mask 14.0 55 General Appearance: alert, moderate distress, obese EENT: PERRL/EOMI, normal ENT inspection Neck: non-tender, normal alignment, supple Cardiovascular: normal peripheral pulses, normal rate, regular rhythm, no gallop/murmur, no JVD Respiratory/Chest: respiratory distress, crackles/rales, rhonchi - bilaterally , expiratory wheezing Abdomen: normal bowel sounds, non tender, soft, no organomegaly, no mass Extremities: normal range of motion 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, no motor/sensory deficits Skin: normal pigmentation, warm/dry Laboratory Tests Test 01/22/17 13:20 01/23/17 03:30 Troponin I < 0.30 ng/mL (<=0.30) < 0.30 ng/mL (<=0.30) White Blood Count 7.3 K/UL (4.8-10.8) Red Blood Count 3.49 M/UL (4.20-5.40) L Hemoglobin 9.0 G/DL (12.0-16.0) L Hematocrit 31.7 % (37.0-47.0) L Mean Corpuscular Volume 91 FL (80-99) Mean Corpuscular Hemoglobin 25.9 PG (27.0-31.0) L Mean Corpuscular Hemoglobin Concent 28.5 G/DL (32.0-36.0) L Red Cell Distribution Width 25.1 % (11.6-14.8) H Platelet Count 167 K/UL (150-450) Mean Platelet Volume 5.7 FL (6.5-10.1) L Neutrophils (%) (Auto) 82.6 % (45.0-75.0) H Lymphocytes (%) (Auto) 8.1 % (20.0-45.0) L Monocytes (%) (Auto) 7.3 % (1.0-10.0) Eosinophils (%) (Auto) 1.8 % (0.0-3.0) Basophils (%) (Auto) 0.4 % (0.0-2.0) Differential Total Cells Counted 100 Neutrophils % (Manual) 78 % (45-75) H Lymphocytes % (Manual) 12 % (20-45) L Monocytes % (Manual) 9 % (1-10) Eosinophils % (Manual) 1 % (0-3) Basophils % (Manual) 0 % (0-2) Band Neutrophils 0 % (0-8) Nucleated Red Blood Cells 3 /100 WBC Platelet Estimate Adequate Platelet Morphology Normal Anisocytosis 1+ Target Cells 1+ Stomatocytes 1+ Erythrocyte Sedimentation Rate 26 MM/HR (0-30) Reticulocyte Count 3.0 % (0.0-2.0) H Prothrombin Time 11.4 SEC (9.30-11.50) Prothromb Time International Ratio 1.1 (0.9-1.1) Activated Partial Thromboplast Time 29 SEC (23-33) Sodium Level 141 mEQ/L (135-145) Potassium Level 3.5 mEQ/L (3.4-4.9) Chloride Level 94 mEQ/L (98-107) L Carbon Dioxide Level 32 mEQ/L (20-30) H Anion Gap 15 (5-15) Blood Urea Nitrogen 67 mg/dL (7-23) H Creatinine 3.6 mg/dL (0.5-0.9) H Estimat Glomerular Filtration Rate mL/min (>60) Glucose Level 74 mg/dL (74-106) Calcium Level 9.4 mg/dL (8.6-10.2) Iron Level 33 ug/dL (37-145) L Total Iron Binding Capacity 280 ug/dL (250-400) Percent Iron Saturation 12 % (15-50) L Unsaturated Iron Binding 247 ug/dL (112-346) Lactate Dehydrogenase 208 U/L (135-230) Pro-B-Type Natriuretic Peptide 62073 pg/mL (0-450) H Carcinoembryonic Antigen 5.7 ng/mL H Vitamin B12 Level 535 pg/mL (211-946) Folate Pending Microbiology Date/Time Source Procedure Growth Status 01/22/17 04:25 Blood Blood Culture - Preliminary NO GROWTH AFTER 24 HOURS Resulted 01/22/17 04:10 Blood Blood Culture - Preliminary NO GROWTH AFTER 24 HOURS Resulted 01/22/17 11:45 Urine,Clean Catch Urine Culture - Preliminary Gram Negative Bacillus 1 Resulted 01/22/17 05:40 Urine,Clean Catch Urine Culture - Preliminary Gram Negative Bacillus 1 Resulted Intake and Output 01/23/17 01/24/17 19:00 07:00 Intake Total 38.5 ml Balance 38.5 ml IV Total 38.5 ml Assessment/Plan Problem List: (1) Atrial fibrillation (2) Renal failure (3) Respiratory distress Assessment & Plan: Due to CHF. See pulm note. Await cardiology consult-Dr Boone. Continue IV lasix (4) Morbid obesity (5) Congestive heart failure Assessment & Plan: Cont IV lasix. Await cardiology consult. (6) Diabetes mellitus Assessment & Plan: Continue novolog sliding scale. Status: not improved INCK OATES Jan 23, 2017 13:18
[2017-01-23] MEDS: Haloperidol 5mg/ml Inj IM PRN ×2 (13:49→21:14)
--- NOTE | 2017-01-23 13:54 | Consultation ---
Consult Note Consult Note Asked to eval for renal failure Chief Complaint: The patient is a 76-year-old white female, presents with a chief complaint of shortness of breath. PAST MEDICAL HISTORY: Significant for: 1. Type 2 diabetes. 2. Congestive heart failure. 3. History of renal failure. 4. History of colon cancer. PAST SURGICAL HISTORY: 1. Significant for colon resection in 1999, status post chemotherapy and radiation therapy. 2. Colon resection in 2012. no allergies- Patient interviewed and examined Has Henry data reviewed discussed with RN . Assessment/Plan Renal failure, likely chronic with superimposed acute ASSESSMENT: This is a 76-year-old white female with: -. Shortness of breath. Respiratory failure, Hypoxia -. Acute congestive heart failure. -. Diabetes type 2. -. Atrial fibrillation. -. Congestive heart failure. -. Morbid obesity. -. History of colon cancer. -. TALITA -. Anemia plan: Optimize cardiac and pulmonary status- Monitor renal parameters avoid Nephrotoxics Urine studies 2D Echo Kidney DEBI gastric coverage anemia FATOUMATA Riggs Jan 23, 2017 13:54
[2017-01-23] MEDS ORDERED: Haloperidol 5mg/ml Inj IM PRN (15:30)
[2017-01-23 16:06] VITALS: BP 137/74
--- NOTE | 2017-01-23 19:36 | Cardiology Report ---
APPROVED REPORT EXAM: Two-dimensional and M-mode echocardiogram with Doppler and color Doppler. INDICATION LV function M-Mode DIMENSIONS IVSd1.3 (0.7-1.1cm)Left Atrium (MM)6.0 (1.6-4.0cm) LVDd4.3 (3.5-5.6cm)Aortic Root2.8 (2.0-3.7cm) PWd1.6 (0.7-1.1cm)Aortic Cusp Exc.1.9 (1.5-2.0cm) LVDs2.9 (2.5-4.0cm) PWs1.9 cm Technically difficult study due to pts body habitus. Normal left ventricular chamber size, systolic function and wall motion to extent visualized except systolic and diastolic flatenning of VS suggestive of RV pressure and volume over load Left ventricular ejection fraction grossly estimated to be 65-70 %. Study quality precludes accurate assessment of regional wall motion. Mild left ventricular hypertrophy. Anterior Echo-free space, may be due to pericardial fat or effusion. Moderate left atrial enlargement. Right cardiac chamber sizes are severely enlarged.RV hypokinesis Focal aortic valve sclerosis with adequate cusp excursion. Moderately thickened mitral valve leaflets with normal excursion. Mitral annulus and aortic root calcification. Pulmonic valve not well visualized. Normal tricuspid valve structure. IVC dilated at 3.1 cm without physiologic collapse suggestive of RA pressure at least 20 mmHg. A color flow and spectral Doppler study was performed and revealed: Mild aortic regurgitation. Moderate mitral regurgitation. Can not determine left ventricular diastolic function by mitral diastolic velocities due to atrial fibrillation. Severe tricuspid regurgitation. Tricuspid systolic velocities suggests peak right ventricular systolic pressure of 93 mmHg, consistent with severe pulmonary hypertension. Moderate pulmonic regurgitation present.
[2017-01-23 20:40] VITALS: BP 145/59
[2017-01-24 00:46] VITALS: BP 127/68
[2017-01-24] MEDS: Haloperidol 5mg/ml Inj IM PRN (02:16)
[2017-01-24 04:00] VITALS: BP 133/61
[2017-01-24 05:25] LABS: BASOPHILS % (AUTO) 0.4 % (0.0-2.0); LYMPHOCYTES % (AUTO) 11.2 % (20.0-45.0); MEAN CORPUSCULAR HEMOGLOBIN 26.2 PG (27.0-31.0); MEAN CORPUSCULAR HGB CONC 29.2 G/DL (32.0-36.0); MEAN CORPUSCULAR VOLUME 90 FL (80-99); MEAN PLATELET VOLUME 6.1 FL (6.5-10.1); MONOCYTES % (AUTO) 8.7 % (1.0-10.0); NEUTROPHILS % (AUTO) 78.7 % (45.0-75.0); PLATELET COUNT 172 K/UL (150-450); RED BLOOD COUNT 3.53 M/UL (4.20-5.40); RED CELL DISTRIBUTION WIDTH 24.8 % (11.6-14.8); WHITE BLOOD COUNT 6.3 K/UL (4.8-10.8)
[2017-01-24 06:08] LABS: TROPONIN I < 0.30 ng/mL (<=0.30)
[2017-01-24 06:16] LABS: ALANINE AMINOTRANSFERASE 6 U/L (3-33); ANION GAP 17 (5-15); ASPARTATE AMINO TRANSFERASE 18 U/L (5-40); CALCIUM 9.4 mg/dL (8.6-10.2); CARBON DIOXIDE 30 mEQ/L (20-30); CHLORIDE 95 mEQ/L (98-107); CREATININE 3.9 mg/dL (0.5-0.9); HEMOLYSIS 2; POTASSIUM 3.2 mEQ/L (3.4-4.9); SODIUM 142 mEQ/L (135-145); TOTAL PROTEIN 6.8 g/dL (6.6-8.7)
[2017-01-24 06:17] LABS: CRP QUANT 1.5 mg/dL (< 0.5); MAGNESIUM 1.6 mg/dL (1.7-2.5); PHOSPHORUS 5.8 mg/dL (2.5-4.8); URIC ACID 7.9 mg/dL (3.0-7.5)
[2017-01-24] MEDS: NovoLOG Insulin Flexpen SUBQ SCH ×4 (06:30→21:47)
[2017-01-24 06:38] LABS: HEMOGLOBIN A1C 4.5 % (< 6.0)
[2017-01-24 07:26] LABS: CHOLESTEROL 105 mg/dL (< 200); CHOLESTEROL/HDL RATIO 3.4 (3.3-4.4); LDL CHOLESTEROL CALC 57 mg/dL (60-99)
[2017-01-24 07:34] LABS: FERRITIN 107 ng/mL (13-150)
[2017-01-24] MEDS ORDERED: traMADol 50mg tab ORAL PRN (08:00)
[2017-01-24 08:06] VITALS: BP 137/65
[2017-01-24] MEDS: Nystatin Powder 100,000 units/gm 15gm TOPIC SCH ×2 (08:42→21:00)
[2017-01-24] MEDS: Heparin 5000 units/ml inj SUBQ SCH ×2 (08:42→21:46)
--- NOTE | 2017-01-24 10:13 | Diagnostic Imaging Report ---
Indication:Elevated Bun and Creatinine. Technique: Grayscale and duplex Doppler imaging of the kidneys performed. Comparison: None Findings: Nondiagnostic exam due to large body habitus. Kidneys are not visualized. The bladder is not distended. IVC not seen. Impression: Nondiagnostic exam
--- NOTE | 2017-01-24 10:50 | General Progress Note ---
Assessment/Plan Status: unchanged Status Narrative cr up to 3.9 Assessment/Plan Renal failure, likely chronic with superimposed acute ASSESSMENT: This is a 76-year-old white female with: -. Shortness of breath. Respiratory failure, Hypoxia -. Acute congestive heart failure. -. Diabetes type 2. -. Atrial fibrillation. -. Congestive heart failure. -. Morbid obesity. -. History of colon cancer. -. TALITA -. Anemia plan: 24 h urine being collected mag and K supplement Optimize cardiac and pulmonary status- Monitor renal parameters avoid Nephrotoxics Urine studies 2D Echo- reviewed Kidney DEBI, unremarkable gastric coverage anemia nguyen Subjective ROS Limited/Unobtainable: No Constitutional: Reports: malaise, weakness Allergies: Coded Allergies: No Known Allergies (Unverified , 01/22/17) Objective Last 24 Hour Vital Signs Date Time Temp Pulse Resp B/P (MAP) Pulse Ox O2 Delivery O2 Flow Rate FiO2 01/24/17 09:01 72 20 Venturi Mask 14.0 55 01/24/17 09:00 95 Venturi Mask 14.0 55 01/24/17 08:59 Venturi Mask 14.0 55 01/24/17 08:06 97.2 73 21 137/65 99 Venturi Mask 55 01/24/17 07:49 83 01/24/17 04:00 97.1 79 24 133/61 99 Venturi Mask 01/24/17 04:00 79 01/24/17 00:46 96.8 76 24 127/68 98 Venturi Mask 01/24/17 00:00 77 01/23/17 22:08 97.0 01/23/17 20:40 97.0 83 24 145/59 95 Venturi Mask 01/23/17 20:00 85 01/23/17 16:06 97.2 83 20 137/74 95 Venturi Mask 14.0 55 01/23/17 16:00 81 01/23/17 12:12 97.2 85 22 145/76 96 Venturi Mask 14.0 55 01/23/17 12:00 77 Intake and Output 01/24/17 01/25/17 19:00 07:00 Intake Total 240 ml Output Total 95 ml Balance 145 ml Intake Oral 240 ml Output Urine Total 95 ml # Bowel Movements 1 Laboratory Tests 01/24/17 04:00: Urine Eosinophils None seen 10/2/17 04:20: White Blood Count 6.3, Red Blood Count 3.53L, Hemoglobin 9.2L, Hematocrit 31.6L , Mean Corpuscular Volume 90, Mean Corpuscular Hemoglobin 26.2L, Mean Corpuscular Hemoglobin Concent 29.2L, Red Cell Distribution Width 24.8H, Platelet Count 172, Mean Platelet Volume 6.1L, Neutrophils (%) (Auto) 78.7H, Lymphocytes (%) (Auto) 11.2L, Monocytes (%) (Auto) 8.7, Eosinophils (%) (Auto) 1.0, Basophils (%) (Auto) 0.4, Sodium Level 142, Potassium Level 3.2L, Chloride Level 95L, Carbon Dioxide Level 30, Anion Gap 17H, Blood Urea Nitrogen 67H, Creatinine 3.9H, Estimat Glomerular Filtration Rate , Glucose Level 87, Hemoglobin A1c 4.5, Uric Acid 7.9H, Calcium Level 9.4, Phosphorus Level 5.8H, Magnesium Level 1.6L, Ferritin 107, Total Bilirubin 0.5, Gamma Glutamyl Transpeptidase 31, Aspartate Amino Transf (AST/SGOT) 18, Alanine Aminotransferase (ALT/SGPT) 6, Alkaline Phosphatase 54, Total Creatine Kinase 72 , Troponin I < 0.30, C-Reactive Protein, Quantitative 1.5H, Pro-B-Type Natriuretic Peptide 65102N, Total Protein 6.8, Albumin 3.5, Globulin 3.3, Albumin/Globulin Ratio 1.0, Triglycerides Level 87, Cholesterol Level 105, LDL Cholesterol 57L, HDL Cholesterol 31, Cholesterol/HDL Ratio 3.4, Thyroid Stimulating Hormone (TSH) 6.330H Height (Feet): 5 Height (Inches): 4.00 Weight (Pounds): 302 General Appearance: no apparent distress, lethargic Cardiovascular: normal rate Respiratory/Chest: decreased breath sounds Abdomen: soft, other - obese Edema: 1+ Arm (L), 1+ Arm (R), 1+ Leg (L), 1+ Leg (R), 1+ Pedal (L), 1+ Pedal ( R), 1+ Generalized Objective other PE not changed FATOUMATA BLANK Jan 24, 2017 10:50
[2017-01-24 11:31] VITALS: BP 121/73
--- NOTE | 2017-01-24 11:34 | Diagnostic Imaging Report ---
Indication: Dyspnea Comparison: 01/23/2017 A single view chest radiograph was obtained. Findings: Prominent pulmonary vascularity and interstitium again demonstrated with cardiomegaly. Bones are osteopenic. Impression: Pulmonary edema without change
--- NOTE | 2017-01-24 11:44 | Pulmonology Progress Note ---
Assessment/Plan Problems: (1) Respiratory distress (2) Congestive heart failure (3) Morbid obesity (4) Diabetes mellitus (5) TALITA (obstructive sleep apnea) Assessment/Plan off bipap haldodl for agitation check echo and renal US check sputum titrate fio2 dc lasix drip b/o worsening renal function check electrolytes 24 urine collection Subjective ROS Limited/Unobtainable: No Constitutional: Reports: no symptoms HEENT: Repors: no symptoms Respiratory: Reports: no symptoms Allergies: Coded Allergies: No Known Allergies (Unverified , 01/22/17) Objective Last 24 Hour Vital Signs Date Time Temp Pulse Resp B/P (MAP) Pulse Ox O2 Delivery O2 Flow Rate FiO2 01/24/17 11:31 97.5 79 21 121/73 99 Venturi Mask 55 01/24/17 09:01 72 20 Venturi Mask 14.0 55 01/24/17 09:00 95 Venturi Mask 14.0 55 01/24/17 08:59 Venturi Mask 14.0 55 01/24/17 08:06 97.2 73 21 137/65 99 Venturi Mask 55 01/24/17 07:49 83 01/24/17 04:00 97.1 79 24 133/61 99 Venturi Mask 01/24/17 04:00 79 01/24/17 00:46 96.8 76 24 127/68 98 Venturi Mask 01/24/17 00:00 77 01/23/17 22:08 97.0 01/23/17 20:40 97.0 83 24 145/59 95 Venturi Mask 01/23/17 20:00 85 01/23/17 16:06 97.2 83 20 137/74 95 Venturi Mask 14.0 55 01/23/17 16:00 81 01/23/17 12:12 97.2 85 22 145/76 96 Venturi Mask 14.0 55 01/23/17 12:00 77 Intake and Output 01/24/17 01/25/17 19:00 07:00 Intake Total 240 ml Output Total 95 ml Balance 145 ml Intake Oral 240 ml Output Urine Total 95 ml # Bowel Movements 2 General Appearance: WD/WN HEENT: normocephalic, anicteric Respiratory/Chest: chest wall non-tender, lungs clear Breasts: no masses Cardiovascular: no JVD Abdomen: normal bowel sounds, soft, non tender Genitourinary: normal external genitalia Extremities: no clubbing 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, no motor/sensory deficits Microbiology Date/Time Source Procedure Growth Status 01/22/17 04:25 Blood Blood Culture - Preliminary NO GROWTH AFTER 48 HOURS Resulted 01/22/17 04:10 Blood Blood Culture - Preliminary NO GROWTH AFTER 48 HOURS Resulted 01/22/17 04:40 Nasal Nares MRSA Culture - Final Staphylococcus Aureus - Mrsa Complete 01/22/17 11:45 Urine,Clean Catch Urine Culture - Final Escherichia Coli - Esbl Complete 01/22/17 05:40 Urine,Clean Catch Urine Culture - Final Escherichia Coli - Esbl Complete 01/22/17 04:40 Rectum VRE Culture - Final Enterococcus Faecalis - Vre Complete Laboratory Tests 01/24/17 04:00: Urine Eosinophils None seen 01/24/17 04:20: White Blood Count 6.3, Red Blood Count 3.53L, Hemoglobin 9.2L, Hematocrit 31.6L , Mean Corpuscular Volume 90, Mean Corpuscular Hemoglobin 26.2L, Mean Corpuscular Hemoglobin Concent 29.2L, Red Cell Distribution Width 24.8H, Platelet Count 172, Mean Platelet Volume 6.1L, Neutrophils (%) (Auto) 78.7H, Lymphocytes (%) (Auto) 11.2L, Monocytes (%) (Auto) 8.7, Eosinophils (%) (Auto) 1.0, Basophils (%) (Auto) 0.4, Sodium Level 142, Potassium Level 3.2L, Chloride Level 95L, Carbon Dioxide Level 30, Anion Gap 17H, Blood Urea Nitrogen 67H, Creatinine 3.9H, Estimat Glomerular Filtration Rate , Glucose Level 87, Hemoglobin A1c 4.5, Uric Acid 7.9H, Calcium Level 9.4, Phosphorus Level 5.8H, Magnesium Level 1.6L, Ferritin 107, Total Bilirubin 0.5, Gamma Glutamyl Transpeptidase 31, Aspartate Amino Transf (AST/SGOT) 18, Alanine Aminotransferase (ALT/SGPT) 6, Alkaline Phosphatase 54, Total Creatine Kinase 72 , Troponin I < 0.30, C-Reactive Protein, Quantitative 1.5H, Pro-B-Type Natriuretic Peptide 70542C, Total Protein 6.8, Albumin 3.5, Globulin 3.3, Albumin/Globulin Ratio 1.0, Triglycerides Level 87, Cholesterol Level 105, LDL Cholesterol 57L, HDL Cholesterol 31, Cholesterol/HDL Ratio 3.4, Thyroid Stimulating Hormone (TSH) 6.330H Current Medications Medications (Trade) Dose Ordered Sig/Johan Route PRN Reason Start Time Stop Time Status Last Admin Dose Admin Acetaminophen (Tylenol) 650 mg Q4H PRN ORAL T>100.5 01/22/17 07:00 02/21/17 06:59 01/23/17 21:09 Albuterol/ Ipratropium (DuoNeb 0.5-3(2.5)mg/3ml) 3 ml Q4H PRN HHN Shortness of Breath 01/22/17 07:00 01/27/17 06:59 Allopurinol (Allopurinol) 300 mg DAILY ORAL 01/22/17 09:00 02/21/17 08:59 01/24/17 08:40 Dextrose (Dextrose 50%) STAT PRN IV Hypoglycemia 01/22/17 07:00 02/21/17 06:59 Furosemide 100 mg/ Dextrose 100 ml @ 10 mls/hr Q10H IV 01/22/17 11:30 02/21/17 11:29 01/24/17 03:32 Haloperidol Lactate (Haldol) 5 mg Q4H PRN IM agitation 01/23/17 13:30 02/22/17 13:29 01/24/17 02:16 Heparin Sodium (Porcine) (Heparin 5000 units/ml) 5,000 units EVERY 12 HOURS SUBQ 01/22/17 09:00 02/21/17 08:59 01/24/17 08:42 Insulin Aspart (NovoLOG) BEFORE MEALS AND HS SUBQ 01/22/17 11:30 02/21/17 11:29 Lansoprazole (Prevacid) 30 mg DAILY ORAL 01/23/17 15:00 02/22/17 14:59 01/24/17 08:46 Nystatin (Nystop Powder) 1 applic Q12HR TOPIC 01/22/17 14:00 02/21/17 13:59 01/24/17 08:42 Ondansetron HCl (Zofran) 4 mg Q6H PRN IVP Nausea & Vomiting 01/22/17 07:00 02/21/17 06:59 Polyethylene Glycol (Miralax) 17 gm DAILYPRN PRN ORAL Constipation 01/22/17 07:00 02/21/17 06:59 Sevelamer Carbonate (Renvela) 800 mg THREE TIMES A DAY ORAL 01/24/17 09:00 02/23/17 08:59 01/24/17 09:59 Temazepam (Restoril) 15 mg HSPRN PRN ORAL Insomnia 01/22/17 21:00 01/29/17 20:59 01/23/17 22:25 Tramadol HCl (Ultram) 50 mg Q6H PRN ORAL For Pain 01/24/17 08:00 01/31/17 07:59 LINDY JORDAN Jan 24, 2017 11:44
--- NOTE | 2017-01-24 11:49 | Internal Med Progress Note ---
Subjective Date of Service: Jan 24, 2017 Physician Name Nick Oates Attending Physician Jaren Jones MD Current Medications Medications (Trade) Dose Ordered Sig/Johan Route PRN Reason Start Time Stop Time Status Last Admin Dose Admin Acetaminophen (Tylenol) 650 mg Q4H PRN ORAL T>100.5 01/22/17 07:00 02/21/17 06:59 01/23/17 21:09 Albuterol/ Ipratropium (DuoNeb 0.5-3(2.5)mg/3ml) 3 ml Q4H PRN HHN Shortness of Breath 01/22/17 07:00 01/27/17 06:59 Allopurinol (Allopurinol) 300 mg DAILY ORAL 01/22/17 09:00 02/21/17 08:59 01/24/17 08:40 Dextrose (Dextrose 50%) STAT PRN IV Hypoglycemia 01/22/17 07:00 02/21/17 06:59 Haloperidol Lactate (Haldol) 5 mg Q4H PRN IM agitation 01/23/17 13:30 02/22/17 13:29 01/24/17 02:16 Heparin Sodium (Porcine) (Heparin 5000 units/ml) 5,000 units EVERY 12 HOURS SUBQ 01/22/17 09:00 02/21/17 08:59 01/24/17 08:42 Insulin Aspart (NovoLOG) BEFORE MEALS AND HS SUBQ 01/22/17 11:30 02/21/17 11:29 Lansoprazole (Prevacid) 30 mg DAILY ORAL 01/23/17 15:00 02/22/17 14:59 01/24/17 08:46 Nystatin (Nystop Powder) 1 applic Q12HR TOPIC 01/22/17 14:00 02/21/17 13:59 01/24/17 08:42 Ondansetron HCl (Zofran) 4 mg Q6H PRN IVP Nausea & Vomiting 01/22/17 07:00 02/21/17 06:59 Polyethylene Glycol (Miralax) 17 gm DAILYPRN PRN ORAL Constipation 01/22/17 07:00 02/21/17 06:59 Sevelamer Carbonate (Renvela) 800 mg THREE TIMES A DAY ORAL 01/24/17 09:00 02/23/17 08:59 01/24/17 09:59 Temazepam (Restoril) 15 mg HSPRN PRN ORAL Insomnia 01/22/17 21:00 01/29/17 20:59 01/23/17 22:25 Allergies: Coded Allergies: No Known Allergies (Unverified , 01/22/17) Subjective 76 YO F admitted with respiratory distress. Now CHF Exacerbation. RADHA. Cover for Int Med-Dr Jones. Await cardiology consult. Agitated requiring 1:1 sitter. Objective Last Vital Signs Date Time Temp Pulse Resp B/P (MAP) Pulse Ox O2 Delivery O2 Flow Rate FiO2 01/24/17 11:31 97.5 79 21 121/73 99 Venturi Mask 55 01/24/17 09:01 14.0 Laboratory Tests Test 01/24/17 04:00 01/24/17 04:20 Urine Eosinophils None seen White Blood Count 6.3 K/UL (4.8-10.8) Red Blood Count 3.53 M/UL (4.20-5.40) L Hemoglobin 9.2 G/DL (12.0-16.0) L Hematocrit 31.6 % (37.0-47.0) L Mean Corpuscular Volume 90 FL (80-99) Mean Corpuscular Hemoglobin 26.2 PG (27.0-31.0) L Mean Corpuscular Hemoglobin Concent 29.2 G/DL (32.0-36.0) L Red Cell Distribution Width 24.8 % (11.6-14.8) H Platelet Count 172 K/UL (150-450) Mean Platelet Volume 6.1 FL (6.5-10.1) L Neutrophils (%) (Auto) 78.7 % (45.0-75.0) H Lymphocytes (%) (Auto) 11.2 % (20.0-45.0) L Monocytes (%) (Auto) 8.7 % (1.0-10.0) Eosinophils (%) (Auto) 1.0 % (0.0-3.0) Basophils (%) (Auto) 0.4 % (0.0-2.0) Sodium Level 142 mEQ/L (135-145) Potassium Level 3.2 mEQ/L (3.4-4.9) L Chloride Level 95 mEQ/L (98-107) L Carbon Dioxide Level 30 mEQ/L (20-30) Anion Gap 17 (5-15) H Blood Urea Nitrogen 67 mg/dL (7-23) H Creatinine 3.9 mg/dL (0.5-0.9) H Estimat Glomerular Filtration Rate mL/min (>60) Glucose Level 87 mg/dL (74-106) Hemoglobin A1c 4.5 % (< 6.0) Uric Acid 7.9 mg/dL (3.0-7.5) H Calcium Level 9.4 mg/dL (8.6-10.2) Phosphorus Level 5.8 mg/dL (2.5-4.8) H Magnesium Level 1.6 mg/dL (1.7-2.5) L Ferritin 107 ng/mL (13-150) Total Bilirubin 0.5 mg/dL (0.0-1.2) Gamma Glutamyl Transpeptidase 31 U/L (5-36) Aspartate Amino Transf (AST/SGOT) 18 U/L (5-40) Alanine Aminotransferase (ALT/SGPT) 6 U/L (3-33) Alkaline Phosphatase 54 U/L (35-104) Total Creatine Kinase 72 U/L (26-140) Troponin I < 0.30 ng/mL (<=0.30) C-Reactive Protein, Quantitative 1.5 mg/dL (< 0.5) H Pro-B-Type Natriuretic Peptide 69007 pg/mL (0-450) H Total Protein 6.8 g/dL (6.6-8.7) Albumin 3.5 g/dL (3.5-5.2) Globulin 3.3 g/dL Albumin/Globulin Ratio 1.0 (1.0-2.7) Triglycerides Level 87 mg/dL (< 150) Cholesterol Level 105 mg/dL (< 200) LDL Cholesterol 57 mg/dL (60-99) L HDL Cholesterol 31 mg/dL (> 60) Cholesterol/HDL Ratio 3.4 (3.3-4.4) Thyroid Stimulating Hormone (TSH) 6.330 uIU/mL (0.300-4.500) Microbiology Date/Time Source Procedure Growth Status 01/22/17 04:25 Blood Blood Culture - Preliminary NO GROWTH AFTER 48 HOURS Resulted 01/22/17 04:10 Blood Blood Culture - Preliminary NO GROWTH AFTER 48 HOURS Resulted 01/22/17 04:40 Nasal Nares MRSA Culture - Final Staphylococcus Aureus - Mrsa Complete 01/22/17 11:45 Urine,Clean Catch Urine Culture - Final Escherichia Coli - Esbl Complete 01/22/17 05:40 Urine,Clean Catch Urine Culture - Final Escherichia Coli - Esbl Complete 01/22/17 04:40 Rectum VRE Culture - Final Enterococcus Faecalis - Vre Complete Intake and Output 01/24/17 01/25/17 19:00 07:00 Intake Total 240 ml Output Total 95 ml Balance 145 ml Intake Oral 240 ml Output Urine Total 95 ml # Bowel Movements 2 Objective General Appearance: alert, moderate distress, obese EENT: PERRL/EOMI, normal ENT inspection Neck: non-tender, normal alignment, supple Cardiovascular: normal peripheral pulses, normal rate, regular rhythm, no gallop/murmur, no JVD Respiratory/Chest: respiratory distress, crackles/rales, rhonchi - bilaterally , expiratory wheezing Abdomen: normal bowel sounds, non tender, soft, no organomegaly, no mass Extremities: normal range of motion 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 See pulm note. Await cardiology consult-Dr Boone. Continue IV lasix (4) Morbid obesity (5) Congestive heart failure Assessment & Plan: LVEF=65-70%. Cont IV lasix. Await cardiology consult. (6) Diabetes mellitus Assessment & Plan: Continue novolog sliding scale. Status: not improved NICK OATES Jan 24, 2017 11:49
--- NOTE | 2017-01-24 12:56 | Diagnostic Imaging Report ---
APPROVED REPORT CPT Code: 62662 Present Symptoms Comments: R/O DVT BILATERAL: Imaging reveals a patent deep venous system bilaterally. There is no evidence of thrombus within the femoral, popliteal or tibial segments. The greater saphenous veins are also within normal limits. Doppler indicates normal spontaneous flow within these segments.
--- NOTE | 2017-01-24 14:27 | Wound Care Consultation ---
Wound Assessment Wound Assessment #1: Wound Number: 1 Wound Present on Admission: Yes New Wound: No Status Change of Wound: No Wound Location Body Site Modif: left, right Wound Location Body Site: breast - folds Wound Type: rash - intertrigo Gill Test: Does not Gill Percent of Wound [place]/Red: 100 Wound Drainage Description: Serosanguineous Wound Drainage Amount: None Wound Drainage Odor: None/Absent Tissue Surrounding Wound: Erythemic - mascerated Wound General Appearance: Reddened, Open to air Wound Assessment #2: Wound Number: 2 Wound Present on Admission: Yes New Wound: No Status Change of Wound: No Wound Location Body Site: abdominal fold Wound Type: rash - intertrigo Gill Test: Does not Gill Percent of Wound [place]/Red: 100 Wound Drainage Amount: None Wound Drainage Odor: None/Absent Tissue Surrounding Wound: Erythemic - mascerated Wound General Appearance: Reddened, Open to air Wound Assessment #3: Wound Number: 3 Wound Present on Admission: Yes New Wound: No Status Change of Wound: No Wound Location Body Site Modif: left, posterior Wound Location Body Site: other - popliteal fossa Wound Type: rash - intertrigo Gill Test: Does not Gill Wound Thickness: Partial Thickness Wound Length: 7.0 Wound Width: 5.0 Wound Depth: <0.1 Percent of Wound [place]/Red: 100 Wound Drainage Description: Serosanguineous Wound Drainage Amount: Scant Wound Drainage Odor: None/Absent Tissue Surrounding Wound: Erythemic - mascerated Wound General Appearance: Reddened, Draining Wound Assessment #4: Wound Number: 4 Wound Present on Admission: Yes New Wound: No Status Change of Wound: Yes - admitted DTI noted denuded appearing stage 2 Wound Location Body Site Modif: mid Wound Location Body Site: sacral Wound Type: pressure ulcer Gill Test: Does not Gill Pressure Ulcer Stage: II - revealing self from DTI to stage 2 scattered noted denuded skin to center of sacral. Wound Thickness: Partial Thickness Wound Length: 3.0 - scattered Wound Width: 7.0 - scattered Wound Depth: 0.2 Percent of Wound [place]/Red: 95 Percent of Wound Bed Yellow/Wh: 5 - denuded white /yellow skin to mid sacral Other Colors Identified: maroon color identified to surrounding skin on sacral area. Wound Drainage Description: Serosanguineous Wound Drainage Amount: Scant Wound Drainage Odor: None/Absent Tissue Surrounding Wound: Macerated Wound General Appearance: Reddened Wound Assessment #5: Wound Number: 5 Wound Present on Admission: Yes New Wound: No Status Change of Wound: No Wound Location Body Site: perineal area Wound Type: chemical burn Percent of Wound [place]/Red: 100 Wound Drainage Amount: None Wound Drainage Odor: None/Absent Tissue Surrounding Wound: Erythemic Wound General Appearance: Reddened, Open to air Wound Comment #1 Bilateral breast folds intertrigo rash. #2 Abdominal fold intertrigo-rash. #3 Left popliteal fossa fold intertrigo rash #4 perineal area chemical burn/redness. #5 sacral scattered DTI denuded revealing self as stage 2. Recommendation. - Keep skin folds clean and dry. -Local wound care as ordered. -Turn and reposition. -Low air loss mattress for skin and wound management. -Optimize nutrition -Keep clean and dry. -Avoid shear and friction. -Heel protectors. -Offload heels. -Assess and notify MD if any further change of condition to skin present. BRETT PEARL Jan 24, 2017 14:27
[2017-01-24 15:25] LABS: CREATININE 3.3 mg/dL (0.5-0.9)
[2017-01-24 15:47] LABS: CREATININE CLEARANCE,URINE 6 mL/min (71-151)
[2017-01-24 15:53] VITALS: BP 142/65
[2017-01-24 19:41] VITALS: BP 140/53
--- NOTE | 2017-01-24 19:53 | Cardiology Progress Note ---
Assessment/Plan Assessment/Plan [id number] Objective Last 24 Hour Vital Signs Date Time Temp Pulse Resp B/P (MAP) Pulse Ox O2 Delivery O2 Flow Rate FiO2 01/24/17 16:00 71 01/24/17 15:53 97.4 74 22 142/65 96 Venturi Mask 55 01/24/17 11:54 88 01/24/17 11:31 97.5 79 21 121/73 99 Venturi Mask 55 01/24/17 09:01 72 20 Venturi Mask 14.0 55 01/24/17 09:00 95 Venturi Mask 14.0 55 01/24/17 08:59 Venturi Mask 14.0 55 01/24/17 08:06 97.2 73 21 137/65 99 Venturi Mask 55 01/24/17 07:49 83 01/24/17 04:00 97.1 79 24 133/61 99 Venturi Mask 01/24/17 04:00 79 01/24/17 00:46 96.8 76 24 127/68 98 Venturi Mask 01/24/17 00:00 77 01/23/17 22:08 97.0 01/23/17 20:40 97.0 83 24 145/59 95 Venturi Mask 01/23/17 20:00 85 Intake and Output 01/24/17 01/25/17 19:00 07:00 Intake Total 736.500 ml Output Total 255 ml Balance 481.500 ml Intake Oral 600 ml IV Total 136.500 ml Output Urine Total 255 ml # Bowel Movements 2 Laboratory Tests Test 01/24/17 04:00 01/24/17 04:20 01/24/17 14:00 Urine Eosinophils None seen White Blood Count 6.3 K/UL (4.8-10.8) Red Blood Count 3.53 M/UL (4.20-5.40) L Hemoglobin 9.2 G/DL (12.0-16.0) L Hematocrit 31.6 % (37.0-47.0) L Mean Corpuscular Volume 90 FL (80-99) Mean Corpuscular Hemoglobin 26.2 PG (27.0-31.0) L Mean Corpuscular Hemoglobin Concent 29.2 G/DL (32.0-36.0) L Red Cell Distribution Width 24.8 % (11.6-14.8) H Platelet Count 172 K/UL (150-450) Mean Platelet Volume 6.1 FL (6.5-10.1) L Neutrophils (%) (Auto) 78.7 % (45.0-75.0) H Lymphocytes (%) (Auto) 11.2 % (20.0-45.0) L Monocytes (%) (Auto) 8.7 % (1.0-10.0) Eosinophils (%) (Auto) 1.0 % (0.0-3.0) Basophils (%) (Auto) 0.4 % (0.0-2.0) Sodium Level 142 mEQ/L (135-145) Potassium Level 3.2 mEQ/L (3.4-4.9) L Chloride Level 95 mEQ/L (98-107) L Carbon Dioxide Level 30 mEQ/L (20-30) Anion Gap 17 (5-15) H Blood Urea Nitrogen 67 mg/dL (7-23) H Creatinine 3.9 mg/dL (0.5-0.9) H 3.3 mg/dL (0.5-0.9) H Estimat Glomerular Filtration Rate mL/min (>60) mL/min (>60) Glucose Level 87 mg/dL (74-106) Hemoglobin A1c 4.5 % (< 6.0) Uric Acid 7.9 mg/dL (3.0-7.5) H Calcium Level 9.4 mg/dL (8.6-10.2) Phosphorus Level 5.8 mg/dL (2.5-4.8) H Magnesium Level 1.6 mg/dL (1.7-2.5) L Ferritin 107 ng/mL (13-150) Total Bilirubin 0.5 mg/dL (0.0-1.2) Gamma Glutamyl Transpeptidase 31 U/L (5-36) Aspartate Amino Transf (AST/SGOT) 18 U/L (5-40) Alanine Aminotransferase (ALT/SGPT) 6 U/L (3-33) Alkaline Phosphatase 54 U/L (35-104) Total Creatine Kinase 72 U/L (26-140) Troponin I < 0.30 ng/mL (<=0.30) C-Reactive Protein, Quantitative 1.5 mg/dL (< 0.5) H Pro-B-Type Natriuretic Peptide 97732 pg/mL (0-450) H Total Protein 6.8 g/dL (6.6-8.7) Albumin 3.5 g/dL (3.5-5.2) Globulin 3.3 g/dL Albumin/Globulin Ratio 1.0 (1.0-2.7) Triglycerides Level 87 mg/dL (< 150) Cholesterol Level 105 mg/dL (< 200) LDL Cholesterol 57 mg/dL (60-99) L HDL Cholesterol 31 mg/dL (> 60) Cholesterol/HDL Ratio 3.4 (3.3-4.4) Thyroid Stimulating Hormone (TSH) 6.330 uIU/mL (0.300-4.500) Urine Collection Time 24 HRS Urine Total Volume 900 ML Urine Creatinine 43 mg/dL Urine Creatinine 24 Hour 387 mg/24hr (740-1570) L Patient Height Inches (Creat Clear) 64 INCHES Patient Weight Pounds (Creat Clear) 302 LBS Creatinine Clearance 6 mL/min (71-151) L Urine Total Protein mg/dL 22 mg/dL Urine Total Protein 24 Hour 198.0 mg/24hr (< 150) H Microbiology Date/Time Source Procedure Growth Status 01/22/17 04:25 Blood Blood Culture - Preliminary NO GROWTH AFTER 48 HOURS Resulted 01/22/17 04:10 Blood Blood Culture - Preliminary NO GROWTH AFTER 48 HOURS Resulted 01/22/17 04:40 Nasal Nares MRSA Culture - Final Staphylococcus Aureus - Mrsa Complete 01/22/17 11:45 Urine,Clean Catch Urine Culture - Final Escherichia Coli - Esbl Complete 01/22/17 05:40 Urine,Clean Catch Urine Culture - Final Escherichia Coli - Esbl Complete 01/22/17 04:40 Rectum VRE Culture - Final Enterococcus Faecalis - Vre Complete JULIO MUNOZ Jan 24, 2017 19:53
--- NOTE | 2017-01-24 23:30 | Consultation ---
DATE OF CONSULTATION: 01/24/2017 CARDIOLOGY CONSULTATION CONSULTING PHYSICIAN: Noe Boone M.D. REQUESTING PHYSICIAN: Jaren Jones M.D. REASON FOR REFERRAL: Congestive heart failure. History Of Present Illness: This is an elderly female, who is really not able to provide information. The patient's chart indicates that the patient was brought by paramedics to the hospital because of shortness of breath that occurred on day of admission. The patient remains on a nonrebreather mask and consultation was requested. She does seem to indicate that she has shortness of breath. Past Medical History: Positive for history of acute hypoxic respiratory failure, congestive heart failure, chronic diastolic dysfunction, preserved ejection fraction, chronic abdominal pain, chronic atrial fibrillation, fluid overload, elevated troponin, chronic kidney disease, acute component, pulmonary hypertension, anemia, acute on chronic gastrointestinal bleeding, left lower extremity deep venous thrombosis, E. coli and Klebsiella urinary tract infection, diabetes mellitus, right heart failure, hypokalemia, and hypomagnesemia. The patient has history of colorectal cancer status post resection, history of small bowel obstruction with radiation proctitis previously, and also chronic obstructive pulmonary disease, on 3.5 liters of oxygen at home with pulmonary hypertension and aortic stenosis. ALLERGIES: None. Social History: She does not smoke or drink alcoholic beverages. No drug use. She is a resident of a convalescent facility. REVIEW OF SYSTEMS: Really unable to obtain. PHYSICAL EXAMINATION: GENERAL: Shows to be an elderly female, obese, on face mask. NECK: Supple. LUNGS: Anteriorly decreased breath sounds noted bilaterally. Cardiac: Irregularly irregular. No heaves or thrills. Not tachycardic. ABDOMEN: Obese. Positive bowel sounds. EXTREMITIES: There is edema of the lower extremities. Laboratories: White count 6.3, hemoglobin 9.2, and a platelet count of 172,000. Blood gases, pH of 7.25, pCO2 of 67, pO2 of 317, and bicarb of 29. Sodium is 142, potassium 3.2, chloride 95, bicarbonate of 30, BUN of 67, creatinine 3.9, glucose of 87, magnesium 1.6, and phosphorus of 5.8. Troponin x2 are negative. ProBNP of 2600. TSH of 6.33. Coags INR 1.1 and a PTT of 22. Urinalysis shows too numerous to count WBCs. Chest x-ray that shows pulmonary edema without change. Echocardiogram which shows ejection fraction 65% to 70% with diastolic and systolic flattening suggestive of RV volume and pressure overload and dilated IVC and pulmonary hypertension with PA systolic pressure in the 90s with severe tricuspid regurgitation and moderate mitral regurgitation. Telemetry shows atrial fibrillation, ventricular response appears to be intact. Her electrocardiogram shows atrial fibrillation. Ventricular response appears to be controlled with delay in R-wave progression, likely secondary to body habitus and lead placement. ASSESSMENT: 1. Congestive heart failure with preserved left ventricular systolic function. 2. Right heart failure. 3. Pulmonary hypertension. 4. Severe tricuspid regurgitation. 5. Permanent atrial fibrillation. 6. Moderate tricuspid regurgitation. 7. Chronic renal insufficiency. 8. Anemia. 9. Urinary tract infection. 10. Obesity. 11. History of colon cancer. 12. Diabetes mellitus. Plan: Dr. Jones and Dr. Paz, this patient was seen in cardiac consultation. The patient unfortunately remains significantly problematic with respect to right heart failure symptoms and signs. Continue diuretics as blood pressure allows and creatinine allows. Of note, the patient's creatinine already in the 3.3 range despite her still having evidence of at least right heart failure. She is on intermittent diuretics although renal function probably prohibits significantly more diureses. I think titration of diuretics for shortness of breath and not necessarily for treatment of right heart failure would be appropriate. Prognosis, however, remains somewhat poor. The patient is not on anticoagulation because of recent gastrointestinal bleeding requiring blood transfusions. She has chronic oxygen requirement approximately 3.5 liters according to [facility] records. [facility] to my present documentation and evaluation of the present chart as well. Noe Boone M.D. DR: MARCUS JOB#: [id number] CC:
[2017-01-25 00:21] VITALS: BP 135/71
[2017-01-25 03:58] VITALS: BP 120/56
[2017-01-25 06:09] LABS: BASOPHILS % (AUTO) 0.5 % (0.0-2.0); EOSINOPHILS % (AUTO) 2.2 % (0.0-3.0); LYMPHOCYTES % (AUTO) 8.7 % (20.0-45.0); MEAN CORPUSCULAR HEMOGLOBIN 26.5 PG (27.0-31.0); MEAN CORPUSCULAR HGB CONC 29.6 G/DL (32.0-36.0); MEAN CORPUSCULAR VOLUME 90 FL (80-99); MONOCYTES % (AUTO) 10.1 % (1.0-10.0); NEUTROPHILS % (AUTO) 78.6 % (45.0-75.0); PLATELET COUNT 151 K/UL (150-450); RED CELL DISTRIBUTION WIDTH 24.4 % (11.6-14.8); WHITE BLOOD COUNT 5.7 K/UL (4.8-10.8)
[2017-01-25 06:29] LABS: ALANINE AMINOTRANSFERASE 5 U/L (3-33); ALBUMIN/GLOBULIN RATIO 1.1 (1.0-2.7); ANION GAP 13 (5-15); ASPARTATE AMINO TRANSFERASE 15 U/L (5-40); CARBON DIOXIDE 32 mEQ/L (20-30); CHLORIDE 96 mEQ/L (98-107); CREATININE 4.1 mg/dL (0.5-0.9); CRP QUANT 1.5 mg/dL (< 0.5); HEMOLYSIS 0; MAGNESIUM 1.8 mg/dL (1.7-2.5); PHOSPHORUS 5.7 mg/dL (2.5-4.8); POTASSIUM 3.5 mEQ/L (3.4-4.9); SODIUM 141 mEQ/L (135-145); TOTAL PROTEIN 6.3 g/dL (6.6-8.7); URIC ACID 8.1 mg/dL (3.0-7.5)
[2017-01-25] MEDS: NovoLOG Insulin Flexpen SUBQ SCH ×4 (06:30→21:00)
[2017-01-25 07:42] VITALS: BP 129/80
--- NOTE | 2017-01-25 08:12 | Pulmonology Progress Note ---
Assessment/Plan Problems: (1) Respiratory distress (2) Congestive heart failure (3) Morbid obesity (4) Diabetes mellitus (5) TALITA (obstructive sleep apnea) Assessment/Plan off bipap bun/creatinine rising haldodl for agitation check echo and renal US check sputum titrate fio2 check electrolytes 24 urine collection Subjective ROS Limited/Unobtainable: No Constitutional: Reports: no symptoms HEENT: Repors: no symptoms Allergies: Coded Allergies: No Known Allergies (Unverified , 01/22/17) Objective Last 24 Hour Vital Signs Date Time Temp Pulse Resp B/P (MAP) Pulse Ox O2 Delivery O2 Flow Rate FiO2 01/25/17 07:42 97.7 87 20 129/80 98 Venturi Mask 01/25/17 05:30 14.0 55 01/25/17 04:00 82 01/25/17 03:58 97.7 74 20 120/56 97 Bi-pap 15.0 01/25/17 03:30 78 28 95 Facial 40 01/25/17 00:32 79 35 98 Facial 40 01/25/17 00:21 97.2 82 20 135/71 99 Bi-pap 15.0 01/25/17 00:00 83 01/24/17 23:10 79 16 97 Facial 40 01/24/17 20:00 83 01/24/17 19:41 97.3 85 19 140/53 97 Nasal Cannula 14.0 01/24/17 19:30 Venturi Mask 14.0 55 01/24/17 19:30 95 Venturi Mask 14.0 55 01/24/17 16:00 71 01/24/17 15:53 97.4 74 22 142/65 96 Venturi Mask 55 01/24/17 11:54 88 01/24/17 11:31 97.5 79 21 121/73 99 Venturi Mask 55 01/24/17 09:01 72 20 Venturi Mask 14.0 55 01/24/17 09:00 95 Venturi Mask 14.0 55 01/24/17 08:59 Venturi Mask 14.0 55 General Appearance: WD/WN HEENT: normocephalic, anicteric Respiratory/Chest: chest wall non-tender, lungs clear Cardiovascular: normal peripheral pulses, normal rate Abdomen: normal bowel sounds, soft, non tender Extremities: no cyanosis, no clubbing Skin: no ulcers 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, no motor/sensory deficits Microbiology Date/Time Source Procedure Growth Status 01/22/17 11:45 Urine,Clean Catch Urine Culture - Final Escherichia Coli - Esbl Complete Laboratory Tests 01/24/17 14:00: Urine Collection Time 24, Urine Total Volume 900, Urine Creatinine 43, Urine Creatinine 24 Hour 387L, Patient Height Inches (Creat Clear) 64, Patient Weight Pounds (Creat Clear) 302, Creatinine Clearance 6L, Urine Total Protein mg/dL 22 , Urine Total Protein 24 Hour 198.0H, Creatinine 3.3H, Estimat Glomerular Filtration Rate 01/25/17 03:45: Creatinine 4.1H, Estimat Glomerular Filtration Rate , White Blood Count 5.7, Red Blood Count 3.20L, Hemoglobin 8.5L, Hematocrit 28.7L, Mean Corpuscular Volume 90, Mean Corpuscular Hemoglobin 26.5L, Mean Corpuscular Hemoglobin Concent 29.6L, Red Cell Distribution Width 24.4H, Platelet Count 151, Mean Platelet Volume 6.0L, Neutrophils (%) (Auto) 78.6H, Lymphocytes (%) (Auto) 8.7L , Monocytes (%) (Auto) 10.1H, Eosinophils (%) (Auto) 2.2, Basophils (%) (Auto) 0.5, Sodium Level 141, Potassium Level 3.5, Chloride Level 96L, Carbon Dioxide Level 32H, Anion Gap 13, Blood Urea Nitrogen 72H, Glucose Level 77, Uric Acid 8.1H, Calcium Level 9.0, Phosphorus Level 5.7H, Magnesium Level 1.8, Total Bilirubin 0.5, Gamma Glutamyl Transpeptidase 30, Aspartate Amino Transf (AST/ SGOT) 15, Alanine Aminotransferase (ALT/SGPT) 5, Alkaline Phosphatase 52, C- Reactive Protein, Quantitative 1.5H, Pro-B-Type Natriuretic Peptide 65529E, Total Protein 6.3L, Albumin 3.3L, Globulin 3.0, Albumin/Globulin Ratio 1.1 Current Medications Medications (Trade) Dose Ordered Sig/Johan Route PRN Reason Start Time Stop Time Status Last Admin Dose Admin Acetaminophen (Tylenol) 650 mg Q4H PRN ORAL T>100.5 01/22/17 07:00 02/21/17 06:59 01/23/17 21:09 Albuterol/ Ipratropium (DuoNeb 0.5-3(2.5)mg/3ml) 3 ml Q4H PRN HHN Shortness of Breath 01/22/17 07:00 01/27/17 06:59 Allopurinol (Allopurinol) 300 mg DAILY ORAL 01/22/17 09:00 02/21/17 08:59 01/24/17 08:40 Dextrose (Dextrose 50%) STAT PRN IV Hypoglycemia 01/22/17 07:00 02/21/17 06:59 Haloperidol Lactate (Haldol) 5 mg Q4H PRN IM agitation 01/23/17 13:30 02/22/17 13:29 01/24/17 02:16 Heparin Sodium (Porcine) (Heparin 5000 units/ml) 5,000 units EVERY 12 HOURS SUBQ 01/22/17 09:00 02/21/17 08:59 01/24/17 21:46 Insulin Aspart (NovoLOG) BEFORE MEALS AND HS SUBQ 01/22/17 11:30 02/21/17 11:29 01/24/17 21:47 Lansoprazole (Prevacid) 30 mg DAILY ORAL 01/23/17 15:00 02/22/17 14:59 01/24/17 08:46 Nystatin (Nystop Powder) 1 applic Q12HR TOPIC 01/22/17 14:00 02/21/17 13:59 01/24/17 21:00 Ondansetron HCl (Zofran) 4 mg Q6H PRN IVP Nausea & Vomiting 01/22/17 07:00 02/21/17 06:59 Polyethylene Glycol (Miralax) 17 gm DAILYPRN PRN ORAL Constipation 01/22/17 07:00 02/21/17 06:59 Sevelamer Carbonate (Renvela) 800 mg THREE TIMES A DAY ORAL 01/24/17 09:00 02/23/17 08:59 01/24/17 18:16 Temazepam (Restoril) 15 mg HSPRN PRN ORAL Insomnia 01/22/17 21:00 01/29/17 20:59 01/24/17 21:43 LINDY JORDAN Jan 25, 2017 08:12
[2017-01-25] MEDS: Nystatin Powder 100,000 units/gm 15gm TOPIC SCH ×2 (09:10→22:45)
[2017-01-25] MEDS: Heparin 5000 units/ml inj SUBQ SCH ×2 (09:12→22:43)
--- NOTE | 2017-01-25 11:35 | General Progress Note ---
Assessment/Plan Status: unchanged, deteriorating - serum Cr Assessment/Plan Renal failure, likely chronic with superimposed acute ASSESSMENT: This is a 76-year-old white female with: -. Shortness of breath. Respiratory failure, Hypoxia -. Acute congestive heart failure. -. Diabetes type 2. -. Atrial fibrillation. -. Congestive heart failure. Right heart failure -. Morbid obesity. -. History of colon cancer. -. TALITA -. Anemia plan: Zaroxyllin 10 po once 24 h urine CrCl 6 mag and K supplement as needed Optimize cardiac and pulmonary status- Monitor renal parameters avoid Nephrotoxics Urine studies 2D Echo- reviewed Right cardiac chamber sizes are severely enlarged.RV hypokinesis Kidney DEBI, unremarkable gastric coverage anemia nguyen stool softners long discussion with Zion Perez the brother [phone] Dialysis discussed,.will wait another day for now Subjective ROS Limited/Unobtainable: No Constitutional: Reports: malaise, weakness Allergies: Coded Allergies: No Known Allergies (Unverified , 01/22/17) Objective Last 24 Hour Vital Signs Date Time Temp Pulse Resp B/P (MAP) Pulse Ox O2 Delivery O2 Flow Rate FiO2 01/25/17 08:00 82 01/25/17 07:42 97.7 87 20 129/80 98 Venturi Mask 01/25/17 05:30 14.0 55 01/25/17 04:00 82 01/25/17 03:58 97.7 74 20 120/56 97 Bi-pap 15.0 01/25/17 03:30 78 28 95 Facial 40 01/25/17 00:32 79 35 98 Facial 40 01/25/17 00:21 97.2 82 20 135/71 99 Bi-pap 15.0 01/25/17 00:00 83 01/24/17 23:10 79 16 97 Facial 40 01/24/17 20:00 83 01/24/17 19:41 97.3 85 19 140/53 97 Nasal Cannula 14.0 01/24/17 19:30 Venturi Mask 14.0 55 01/24/17 19:30 95 Venturi Mask 14.0 55 01/24/17 16:00 71 01/24/17 15:53 97.4 74 22 142/65 96 Venturi Mask 55 01/24/17 11:54 88 Intake and Output 01/25/17 01/26/17 19:00 07:00 Intake Total 480 ml Output Total 50 ml Balance 430 ml Intake Oral 480 ml Output Urine Total 50 ml Laboratory Tests 01/24/17 14:00: Urine Collection Time 24, Urine Total Volume 900, Urine Creatinine 43, Urine Creatinine 24 Hour 387L, Patient Height Inches (Creat Clear) 64, Patient Weight Pounds (Creat Clear) 302, Creatinine Clearance 6L, Urine Total Protein mg/dL 22 , Urine Total Protein 24 Hour 198.0H, Creatinine 3.3H, Estimat Glomerular Filtration Rate 01/25/17 03:45: Creatinine 4.1H, Estimat Glomerular Filtration Rate , White Blood Count 5.7, Red Blood Count 3.20L, Hemoglobin 8.5L, Hematocrit 28.7L, Mean Corpuscular Volume 90, Mean Corpuscular Hemoglobin 26.5L, Mean Corpuscular Hemoglobin Concent 29.6L, Red Cell Distribution Width 24.4H, Platelet Count 151, Mean Platelet Volume 6.0L, Neutrophils (%) (Auto) 78.6H, Lymphocytes (%) (Auto) 8.7L , Monocytes (%) (Auto) 10.1H, Eosinophils (%) (Auto) 2.2, Basophils (%) (Auto) 0.5, Sodium Level 141, Potassium Level 3.5, Chloride Level 96L, Carbon Dioxide Level 32H, Anion Gap 13, Blood Urea Nitrogen 72H, Glucose Level 77, Uric Acid 8.1H, Calcium Level 9.0, Phosphorus Level 5.7H, Magnesium Level 1.8, Total Bilirubin 0.5, Gamma Glutamyl Transpeptidase 30, Aspartate Amino Transf (AST/ SGOT) 15, Alanine Aminotransferase (ALT/SGPT) 5, Alkaline Phosphatase 52, C- Reactive Protein, Quantitative 1.5H, Pro-B-Type Natriuretic Peptide 74493L, Total Protein 6.3L, Albumin 3.3L, Globulin 3.0, Albumin/Globulin Ratio 1.1 01/25/17 04:00: Urine Eosinophils None seen Height (Feet): 5 Height (Inches): 4.00 Weight (Pounds): 302 General Appearance: no apparent distress, lethargic Respiratory/Chest: decreased breath sounds Abdomen: other - obese Edema: 1+ Arm (L), 1+ Arm (R), 1+ Leg (L), 1+ Leg (R), 1+ Pedal (L), 1+ Pedal ( R), 1+ Generalized Objective other PE not changed FATOUMATA BLANK Jan 25, 2017 11:35
[2017-01-25 12:00] VITALS: BP 124/61
[2017-01-25] MEDS: Docusate 100mg cap ORAL SCH ×2 (12:29→17:05)
[2017-01-25] MEDS ORDERED: Haloperidol 5mg/ml Inj IM PRN (13:30)
--- NOTE | 2017-01-25 15:01 | Cardiology Progress Note ---
Assessment/Plan Assessment/Plan 1. Congestive heart failure with preserved left ventricular systolic function. 2. Right heart failure. 3. Pulmonary hypertension. 4. Severe tricuspid regurgitation. 5. Permanent atrial fibrillation. 6. Moderate tricuspid regurgitation. 7. Chronic renal insufficiency. 8. Anemia. 9. Urinary tract infection. 10. Obesity. 11. History of colon cancer. 12. Diabetes mellitus. i think dialysis will be much helpful for her to allow removal of excess fluid as bp allows telel afib oxygenating adequately on nrb mask is not on anticoagulation because of recent gastrointestinal bleeding requiring blood transfusions Objective Last 24 Hour Vital Signs Date Time Temp Pulse Resp B/P (MAP) Pulse Ox O2 Delivery O2 Flow Rate FiO2 01/25/17 14:35 96 14.0 55 01/25/17 13:25 95 14.0 55 01/25/17 12:00 97.9 80 20 124/61 95 Venturi Mask 55 01/25/17 11:53 72 01/25/17 11:09 97 14.0 55 01/25/17 08:30 Venturi Mask 14.0 55 01/25/17 08:30 14.0 55 01/25/17 08:30 99 Venturi Mask 14.0 55 01/25/17 08:00 82 01/25/17 07:42 97.7 87 20 129/80 98 Venturi Mask 01/25/17 05:30 14.0 55 01/25/17 04:00 82 01/25/17 03:58 97.7 74 20 120/56 97 Bi-pap 15.0 01/25/17 03:30 78 28 95 Facial 40 01/25/17 00:32 79 35 98 Facial 40 01/25/17 00:21 97.2 82 20 135/71 99 Bi-pap 15.0 01/25/17 00:00 83 01/24/17 23:10 79 16 97 Facial 40 01/24/17 20:00 83 01/24/17 19:41 97.3 85 19 140/53 97 Nasal Cannula 14.0 01/24/17 19:30 Venturi Mask 14.0 55 01/24/17 19:30 95 Venturi Mask 14.0 55 01/24/17 16:00 71 01/24/17 15:53 97.4 74 22 142/65 96 Venturi Mask 55 Intake and Output 01/25/17 01/26/17 19:00 07:00 Intake Total 480 ml Output Total 95 ml Balance 385 ml Intake Oral 480 ml Output Urine Total 95 ml Laboratory Tests Test 01/25/17 03:45 01/25/17 04:00 White Blood Count 5.7 K/UL (4.8-10.8) Red Blood Count 3.20 M/UL (4.20-5.40) L Hemoglobin 8.5 G/DL (12.0-16.0) L Hematocrit 28.7 % (37.0-47.0) L Mean Corpuscular Volume 90 FL (80-99) Mean Corpuscular Hemoglobin 26.5 PG (27.0-31.0) L Mean Corpuscular Hemoglobin Concent 29.6 G/DL (32.0-36.0) L Red Cell Distribution Width 24.4 % (11.6-14.8) H Platelet Count 151 K/UL (150-450) Mean Platelet Volume 6.0 FL (6.5-10.1) L Neutrophils (%) (Auto) 78.6 % (45.0-75.0) H Lymphocytes (%) (Auto) 8.7 % (20.0-45.0) L Monocytes (%) (Auto) 10.1 % (1.0-10.0) H Eosinophils (%) (Auto) 2.2 % (0.0-3.0) Basophils (%) (Auto) 0.5 % (0.0-2.0) Sodium Level 141 mEQ/L (135-145) Potassium Level 3.5 mEQ/L (3.4-4.9) Chloride Level 96 mEQ/L (98-107) L Carbon Dioxide Level 32 mEQ/L (20-30) H Anion Gap 13 (5-15) Blood Urea Nitrogen 72 mg/dL (7-23) H Creatinine 4.1 mg/dL (0.5-0.9) H Estimat Glomerular Filtration Rate mL/min (>60) Glucose Level 77 mg/dL (74-106) Uric Acid 8.1 mg/dL (3.0-7.5) H Calcium Level 9.0 mg/dL (8.6-10.2) Phosphorus Level 5.7 mg/dL (2.5-4.8) H Magnesium Level 1.8 mg/dL (1.7-2.5) Total Bilirubin 0.5 mg/dL (0.0-1.2) Gamma Glutamyl Transpeptidase 30 U/L (5-36) Aspartate Amino Transf (AST/SGOT) 15 U/L (5-40) Alanine Aminotransferase (ALT/SGPT) 5 U/L (3-33) Alkaline Phosphatase 52 U/L (35-104) C-Reactive Protein, Quantitative 1.5 mg/dL (< 0.5) H Pro-B-Type Natriuretic Peptide 93702 pg/mL (0-450) H Total Protein 6.3 g/dL (6.6-8.7) L Albumin 3.3 g/dL (3.5-5.2) L Globulin 3.0 g/dL Albumin/Globulin Ratio 1.1 (1.0-2.7) Urine Eosinophils None seen JULIO MUNOZ Jan 25, 2017 15:01
--- NOTE | 2017-01-25 15:35 | Internal Med Progress Note ---
Subjective Date of Service: Jan 25, 2017 Physician Name Nick Oates Attending Physician Jaren Jones MD Current Medications Medications (Trade) Dose Ordered Sig/Johan Route PRN Reason Start Time Stop Time Status Last Admin Dose Admin Acetaminophen (Tylenol) 650 mg Q4H PRN ORAL T>100.5 01/22/17 07:00 02/21/17 06:59 01/23/17 21:09 Albuterol/ Ipratropium (DuoNeb 0.5-3(2.5)mg/3ml) 3 ml Q4H PRN HHN Shortness of Breath 01/22/17 07:00 01/27/17 06:59 Allopurinol (Allopurinol) 300 mg DAILY ORAL 01/22/17 09:00 02/21/17 08:59 01/25/17 09:10 Dextrose (Dextrose 50%) STAT PRN IV Hypoglycemia 01/22/17 07:00 02/21/17 06:59 Docusate Sodium (Colace) 100 mg TID ORAL 01/25/17 13:00 02/24/17 12:59 01/25/17 12:29 Haloperidol Lactate (Haldol) 2 mg Q4H PRN IM agitation 01/25/17 13:30 02/24/17 13:29 Heparin Sodium (Porcine) (Heparin 5000 units/ml) 5,000 units EVERY 12 HOURS SUBQ 01/22/17 09:00 02/21/17 08:59 01/25/17 09:12 Insulin Aspart (NovoLOG) BEFORE MEALS AND HS SUBQ 01/22/17 11:30 02/21/17 11:29 01/24/17 21:47 Lansoprazole (Prevacid) 30 mg DAILY ORAL 01/23/17 15:00 02/22/17 14:59 01/25/17 09:10 Nystatin (Nystop Powder) 1 applic Q12HR TOPIC 01/22/17 14:00 02/21/17 13:59 01/25/17 09:10 Ondansetron HCl (Zofran) 4 mg Q6H PRN IVP Nausea & Vomiting 01/22/17 07:00 02/21/17 06:59 Polyethylene Glycol (Miralax) 17 gm DAILYPRN PRN ORAL Constipation 01/22/17 07:00 02/21/17 06:59 Sevelamer Carbonate (Renvela) 1,600 mg THREE TIMES A DAY ORAL 01/25/17 13:00 02/24/17 12:59 01/25/17 12:30 Temazepam (Restoril) 15 mg HSPRN PRN ORAL Insomnia 01/22/17 21:00 01/29/17 20:59 01/24/17 21:43 Allergies: Coded Allergies: No Known Allergies (Unverified , 01/22/17) ROS Limited/Unobtainable: Yes Subjective 76 YO F admitted with respiratory distress. Now CHF Exacerbation. RADHA. Cover for Int Med-Dr Jones. Worsening renal failure. Objective Last Vital Signs Date Time Temp Pulse Resp B/P (MAP) Pulse Ox O2 Delivery O2 Flow Rate FiO2 01/25/17 14:35 96 14.0 55 01/25/17 12:00 97.9 20 124/61 95 Venturi Mask Laboratory Tests Test 01/25/17 03:45 01/25/17 04:00 White Blood Count 5.7 K/UL (4.8-10.8) Red Blood Count 3.20 M/UL (4.20-5.40) L Hemoglobin 8.5 G/DL (12.0-16.0) L Hematocrit 28.7 % (37.0-47.0) L Mean Corpuscular Volume 90 FL (80-99) Mean Corpuscular Hemoglobin 26.5 PG (27.0-31.0) L Mean Corpuscular Hemoglobin Concent 29.6 G/DL (32.0-36.0) L Red Cell Distribution Width 24.4 % (11.6-14.8) H Platelet Count 151 K/UL (150-450) Mean Platelet Volume 6.0 FL (6.5-10.1) L Neutrophils (%) (Auto) 78.6 % (45.0-75.0) H Lymphocytes (%) (Auto) 8.7 % (20.0-45.0) L Monocytes (%) (Auto) 10.1 % (1.0-10.0) H Eosinophils (%) (Auto) 2.2 % (0.0-3.0) Basophils (%) (Auto) 0.5 % (0.0-2.0) Sodium Level 141 mEQ/L (135-145) Potassium Level 3.5 mEQ/L (3.4-4.9) Chloride Level 96 mEQ/L (98-107) L Carbon Dioxide Level 32 mEQ/L (20-30) H Anion Gap 13 (5-15) Blood Urea Nitrogen 72 mg/dL (7-23) H Creatinine 4.1 mg/dL (0.5-0.9) H Estimat Glomerular Filtration Rate mL/min (>60) Glucose Level 77 mg/dL (74-106) Uric Acid 8.1 mg/dL (3.0-7.5) H Calcium Level 9.0 mg/dL (8.6-10.2) Phosphorus Level 5.7 mg/dL (2.5-4.8) H Magnesium Level 1.8 mg/dL (1.7-2.5) Total Bilirubin 0.5 mg/dL (0.0-1.2) Gamma Glutamyl Transpeptidase 30 U/L (5-36) Aspartate Amino Transf (AST/SGOT) 15 U/L (5-40) Alanine Aminotransferase (ALT/SGPT) 5 U/L (3-33) Alkaline Phosphatase 52 U/L (35-104) C-Reactive Protein, Quantitative 1.5 mg/dL (< 0.5) H Pro-B-Type Natriuretic Peptide 36504 pg/mL (0-450) H Total Protein 6.3 g/dL (6.6-8.7) L Albumin 3.3 g/dL (3.5-5.2) L Globulin 3.0 g/dL Albumin/Globulin Ratio 1.1 (1.0-2.7) Urine Eosinophils None seen Intake and Output 01/25/17 01/26/17 19:00 07:00 Intake Total 720 ml Output Total 125 ml Balance 595 ml Intake Oral 720 ml Output Urine Total 125 ml Objective General Appearance: alert, moderate distress, obese EENT: PERRL/EOMI, normal ENT inspection Neck: non-tender, normal alignment, supple Cardiovascular: normal peripheral pulses, normal rate, regular rhythm, no gallop/murmur, no JVD Respiratory/Chest: venturi mask; respiratory distress, crackles/rales, rhonchi - bilaterally, expiratory wheezing Abdomen: normal bowel sounds, non tender, soft, no organomegaly, no mass Extremities: normal range of motion 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 See cardiology note. (2) Renal failure Assessment & Plan: Worsening. See nephrology note concerning possible dialysis (3) Respiratory distress Assessment & Plan: Due to CHF. See pulm note. Await cardiology consult-Dr Boone. Continue IV lasix (4) Morbid obesity (5) Congestive heart failure Assessment & Plan: LVEF=65-70%. Cont IV lasix. Await cardiology consult. (6) Diabetes mellitus Assessment & Plan: Continue novolog sliding scale. Status: not improved NICK OATES Jan 25, 2017 15:35
[2017-01-25] MEDS ORDERED: Tubing IV Secondary IV ONE (15:54)
[2017-01-25] MEDS ORDERED: NS 275ml ONE (15:54)
[2017-01-25 15:59] VITALS: BP 112/62
[2017-01-25 19:40] VITALS: BP 150/80
[2017-01-26] VITALS: BP 133/58
[2017-01-26 04:00] VITALS: BP 137/62
[2017-01-26 05:58] LABS: BASOPHILS % (AUTO) 0.4 % (0.0-2.0); EOSINOPHILS % (AUTO) 1.2 % (0.0-3.0); LYMPHOCYTES % (AUTO) 10.7 % (20.0-45.0); MEAN CORPUSCULAR HEMOGLOBIN 26.8 PG (27.0-31.0); MEAN CORPUSCULAR HGB CONC 29.9 G/DL (32.0-36.0); MEAN CORPUSCULAR VOLUME 90 FL (80-99); MEAN PLATELET VOLUME 5.9 FL (6.5-10.1); MONOCYTES % (AUTO) 10.4 % (1.0-10.0); NEUTROPHILS % (AUTO) 77.3 % (45.0-75.0); PLATELET COUNT 143 K/UL (150-450); RED BLOOD COUNT 3.39 M/UL (4.20-5.40); RED CELL DISTRIBUTION WIDTH 24.7 % (11.6-14.8); WHITE BLOOD COUNT 6.3 K/UL (4.8-10.8)
[2017-01-26 06:26] LABS: ALANINE AMINOTRANSFERASE 5 U/L (3-33); ALBUMIN/GLOBULIN RATIO 1.1 (1.0-2.7); ANION GAP 13 (5-15); ASPARTATE AMINO TRANSFERASE 15 U/L (5-40); CARBON DIOXIDE 33 mEQ/L (20-30); CHLORIDE 94 mEQ/L (98-107); CREATININE 4.6 mg/dL (0.5-0.9); HEMOLYSIS 3; POTASSIUM 3.6 mEQ/L (3.4-4.9); SODIUM 140 mEQ/L (135-145); TOTAL PROTEIN 6.5 g/dL (6.6-8.7)
[2017-01-26] MEDS: NovoLOG Insulin Flexpen SUBQ SCH ×4 (06:30→20:36)
[2017-01-26 06:32] LABS: CRP QUANT 1.3 mg/dL (< 0.5); MAGNESIUM 1.8 mg/dL (1.7-2.5)
[2017-01-26 07:39] VITALS: BP 128/62
[2017-01-26] MEDS: Heparin 5000 units/ml inj SUBQ SCH ×2 (09:00→20:37)
[2017-01-26] MEDS: Docusate 100mg cap ORAL SCH ×3 (09:00→18:00)
[2017-01-26] MEDS: Nystatin Powder 100,000 units/gm 15gm TOPIC SCH ×2 (09:06→20:34)
--- NOTE | 2017-01-26 10:08 | General Progress Note ---
Assessment/Plan Status: deteriorating Status Narrative Cr higher Assessment/Plan Renal failure, likely chronic with superimposed acute ASSESSMENT: This is a 76-year-old white female with: -. Shortness of breath. Respiratory failure, Hypoxia -. Acute congestive heart failure. -. Diabetes type 2. -. Atrial fibrillation. -. Congestive heart failure. Right heart failure -. Morbid obesity. -. History of colon cancer. -. TALITA -. Anemia plan: need HD 24 h urine CrCl 6 mag and K supplement as needed Optimize cardiac and pulmonary status- Monitor renal parameters avoid Nephrotoxics Urine studies 2D Echo- reviewed Right cardiac chamber sizes are severely enlarged.RV hypokinesis Kidney DEBI, unremarkable gastric coverage anemia nguyen stool softners long discussion with Zion Perez the brother 01/25/17 Dialysis discussed,.will wait another day and check Cr level Subjective ROS Limited/Unobtainable: No Constitutional: Reports: malaise, weakness Allergies: Coded Allergies: No Known Allergies (Unverified , 01/22/17) Objective Last 24 Hour Vital Signs Date Time Temp Pulse Resp B/P (MAP) Pulse Ox O2 Delivery O2 Flow Rate FiO2 01/26/17 08:00 75 01/26/17 07:39 97.2 79 19 128/62 100 Venturi Mask 55 01/26/17 06:58 Venturi Mask 14.0 55 01/26/17 06:58 96 Venturi Mask 14.0 55 01/26/17 04:12 75 01/26/17 04:00 97.2 73 18 137/62 96 Mechanical Ventilator 14.0 55 01/26/17 03:30 14.0 55 01/26/17 01:03 94 14.0 55 01/26/17 00:00 90 01/26/17 00:00 97.2 81 18 133/58 96 Mechanical Ventilator 14.0 55 01/25/17 23:17 98 14.0 55 01/25/17 21:54 99 14.0 55 01/25/17 19:40 97.7 99 20 150/80 89 Mechanical Ventilator 01/25/17 19:30 96 15.0 55 01/25/17 19:20 99 Venturi Mask 14.0 55 01/25/17 19:00 Venturi Mask 14.0 55 01/25/17 17:01 98 14.0 55 01/25/17 16:00 79 01/25/17 15:59 97.3 81 20 112/62 96 Venturi Mask 01/25/17 14:35 96 14.0 55 01/25/17 13:25 95 14.0 55 01/25/17 12:00 97.9 80 20 124/61 95 Venturi Mask 55 01/25/17 11:53 72 01/25/17 11:09 97 14.0 55 Intake and Output 01/26/17 01/27/17 19:00 07:00 Output Total 20 ml Balance -20 ml Output Urine Total 20 ml # Bowel Movements 1 Laboratory Tests 01/26/17 03:30: Urine Eosinophils None seen 01/26/17 03:45: White Blood Count 6.3, Red Blood Count 3.39L, Hemoglobin 9.1L, Hematocrit 30.5L , Mean Corpuscular Volume 90, Mean Corpuscular Hemoglobin 26.8L, Mean Corpuscular Hemoglobin Concent 29.9L, Red Cell Distribution Width 24.7H, Platelet Count 143L, Mean Platelet Volume 5.9L, Neutrophils (%) (Auto) 77.3H, Lymphocytes (%) (Auto) 10.7L, Monocytes (%) (Auto) 10.4H, Eosinophils (%) (Auto ) 1.2, Basophils (%) (Auto) 0.4, Sodium Level 140, Potassium Level 3.6, Chloride Level 94L, Carbon Dioxide Level 33H, Anion Gap 13, Blood Urea Nitrogen 73H, Creatinine 4.6H, Estimat Glomerular Filtration Rate , Glucose Level 88, Uric Acid 8.0H, Calcium Level 9.0, Phosphorus Level 6.0H, Magnesium Level 1.8, Total Bilirubin 0.4, Aspartate Amino Transf (AST/SGOT) 15, Alanine Aminotransferase (ALT/SGPT) 5, Alkaline Phosphatase 53, C-Reactive Protein, Quantitative 1.3H, Pro-B-Type Natriuretic Peptide 12286C, Total Protein 6.5L, Albumin 3.5, Globulin 3.0, Albumin/Globulin Ratio 1.1 Height (Feet): 5 Height (Inches): 4.00 Weight (Pounds): 302 General Appearance: lethargic Cardiovascular: normal rate Respiratory/Chest: decreased breath sounds Abdomen: soft Objective other PE not changed FATOUMATA BLANK Jan 26, 2017 10:08
--- NOTE | 2017-01-26 11:08 | Pulmonology Progress Note ---
Assessment/Plan Problems: (1) Respiratory distress (2) Congestive heart failure (3) Morbid obesity (4) Diabetes mellitus (5) TALITA (obstructive sleep apnea) Assessment/Plan off bipap bun/creatinine rising haldodl for agitation check echo and renal US check sputum titrate fio2 check electrolytes 24 urine collection nephrology suggested HD, family is thinking about it. Subjective ROS Limited/Unobtainable: No Interval Events: open her eyes, looks comfortable Constitutional: Reports: no symptoms Respiratory: Reports: no symptoms Allergies: Coded Allergies: No Known Allergies (Unverified , 01/22/17) Objective Last 24 Hour Vital Signs Date Time Temp Pulse Resp B/P (MAP) Pulse Ox O2 Delivery O2 Flow Rate FiO2 01/26/17 08:00 75 01/26/17 07:39 97.2 79 19 128/62 100 Venturi Mask 55 01/26/17 06:58 Venturi Mask 14.0 55 01/26/17 06:58 96 Venturi Mask 14.0 55 01/26/17 04:12 75 01/26/17 04:00 97.2 73 18 137/62 96 Mechanical Ventilator 14.0 55 01/26/17 03:30 14.0 55 01/26/17 01:03 94 14.0 55 01/26/17 00:00 90 01/26/17 00:00 97.2 81 18 133/58 96 Mechanical Ventilator 14.0 55 01/25/17 23:17 98 14.0 55 01/25/17 21:54 99 14.0 55 01/25/17 19:40 97.7 99 20 150/80 89 Mechanical Ventilator 01/25/17 19:30 96 15.0 55 01/25/17 19:20 99 Venturi Mask 14.0 55 01/25/17 19:00 Venturi Mask 14.0 55 01/25/17 17:01 98 14.0 55 01/25/17 16:00 79 01/25/17 15:59 97.3 81 20 112/62 96 Venturi Mask 01/25/17 14:35 96 14.0 55 01/25/17 13:25 95 14.0 55 01/25/17 12:00 97.9 80 20 124/61 95 Venturi Mask 55 01/25/17 11:53 72 01/25/17 11:09 97 14.0 55 Intake and Output 01/26/17 01/27/17 19:00 07:00 Output Total 30 ml Balance -30 ml Output Urine Total 30 ml # Bowel Movements 1 General Appearance: WD/WN HEENT: normocephalic, atraumatic Respiratory/Chest: chest wall non-tender, normal breath sounds Breasts: no masses Cardiovascular: normal peripheral pulses, normal rate, regular rhythm Abdomen: normal bowel sounds, soft, non tender Extremities: no cyanosis 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, no motor/sensory deficits Lymphatic: no neck adenopathy Laboratory Tests 01/26/17 03:30: Urine Eosinophils None seen 01/26/17 03:45: White Blood Count 6.3, Red Blood Count 3.39L, Hemoglobin 9.1L, Hematocrit 30.5L , Mean Corpuscular Volume 90, Mean Corpuscular Hemoglobin 26.8L, Mean Corpuscular Hemoglobin Concent 29.9L, Red Cell Distribution Width 24.7H, Platelet Count 143L, Mean Platelet Volume 5.9L, Neutrophils (%) (Auto) 77.3H, Lymphocytes (%) (Auto) 10.7L, Monocytes (%) (Auto) 10.4H, Eosinophils (%) (Auto ) 1.2, Basophils (%) (Auto) 0.4, Sodium Level 140, Potassium Level 3.6, Chloride Level 94L, Carbon Dioxide Level 33H, Anion Gap 13, Blood Urea Nitrogen 73H, Creatinine 4.6H, Estimat Glomerular Filtration Rate , Glucose Level 88, Uric Acid 8.0H, Calcium Level 9.0, Phosphorus Level 6.0H, Magnesium Level 1.8, Total Bilirubin 0.4, Aspartate Amino Transf (AST/SGOT) 15, Alanine Aminotransferase (ALT/SGPT) 5, Alkaline Phosphatase 53, C-Reactive Protein, Quantitative 1.3H, Pro-B-Type Natriuretic Peptide 67950D, Total Protein 6.5L, Albumin 3.5, Globulin 3.0, Albumin/Globulin Ratio 1.1 Current Medications Medications (Trade) Dose Ordered Sig/Johan Route PRN Reason Start Time Stop Time Status Last Admin Dose Admin Acetaminophen (Tylenol) 650 mg Q4H PRN ORAL T>100.5 01/22/17 07:00 02/21/17 06:59 01/23/17 21:09 Albuterol/ Ipratropium (DuoNeb 0.5-3(2.5)mg/3ml) 3 ml Q4H PRN HHN Shortness of Breath 01/22/17 07:00 01/27/17 06:59 Allopurinol (Allopurinol) 300 mg DAILY ORAL 01/22/17 09:00 02/21/17 08:59 01/26/17 09:05 Dextrose (Dextrose 50%) STAT PRN IV Hypoglycemia 01/22/17 07:00 02/21/17 06:59 Docusate Sodium (Colace) 100 mg TID ORAL 01/25/17 13:00 02/24/17 12:59 01/25/17 17:05 Haloperidol Lactate (Haldol) 2 mg Q4H PRN IM agitation 01/25/17 13:30 02/24/17 13:29 Heparin Sodium (Porcine) (Heparin 5000 units/ml) 5,000 units EVERY 12 HOURS SUBQ 01/22/17 09:00 02/21/17 08:59 01/25/17 22:43 Insulin Aspart (NovoLOG) BEFORE MEALS AND HS SUBQ 01/22/17 11:30 02/21/17 11:29 01/24/17 21:47 Lansoprazole (Prevacid) 30 mg DAILY ORAL 01/23/17 15:00 02/22/17 14:59 01/26/17 09:05 Nystatin (Nystop Powder) 1 applic Q12HR TOPIC 01/22/17 14:00 02/21/17 13:59 01/26/17 09:06 Ondansetron HCl (Zofran) 4 mg Q6H PRN IVP Nausea & Vomiting 01/22/17 07:00 02/21/17 06:59 Polyethylene Glycol (Miralax) 17 gm DAILYPRN PRN ORAL Constipation 01/22/17 07:00 02/21/17 06:59 Quetiapine Fumarate (SEROquel) 12.5 mg EVERY 6 HOURS PRN ORAL Agitation 01/26/17 10:45 02/25/17 10:44 UNV Sevelamer Carbonate (Renvela) 1,600 mg THREE TIMES A DAY ORAL 01/25/17 13:00 02/24/17 12:59 01/26/17 09:05 Temazepam (Restoril) 15 mg HSPRN PRN ORAL Insomnia 01/22/17 21:00 01/29/17 20:59 01/24/17 21:43 LINDY JORDAN Jan 26, 2017 11:08
[2017-01-26 12:00] VITALS: BP 114/63
--- NOTE | 2017-01-26 13:31 | Internal Med Progress Note ---
Subjective Date of Service: Jan 26, 2017 Physician Name Nick Oates Attending Physician Jaren Jones MD Current Medications Medications (Trade) Dose Ordered Sig/Johan Route PRN Reason Start Time Stop Time Status Last Admin Dose Admin Acetaminophen (Tylenol) 650 mg Q4H PRN ORAL T>100.5 01/22/17 07:00 02/21/17 06:59 01/23/17 21:09 Albuterol/ Ipratropium (DuoNeb 0.5-3(2.5)mg/3ml) 3 ml Q4H PRN HHN Shortness of Breath 01/22/17 07:00 01/27/17 06:59 Allopurinol (Allopurinol) 300 mg DAILY ORAL 01/22/17 09:00 02/21/17 08:59 01/26/17 09:05 Dextrose (Dextrose 50%) STAT PRN IV Hypoglycemia 01/22/17 07:00 02/21/17 06:59 Docusate Sodium (Colace) 100 mg TID ORAL 01/25/17 13:00 02/24/17 12:59 01/25/17 17:05 Haloperidol Lactate (Haldol) 2 mg Q4H PRN IM agitation 01/25/17 13:30 02/24/17 13:29 Heparin Sodium (Porcine) (Heparin 5000 units/ml) 5,000 units EVERY 12 HOURS SUBQ 01/22/17 09:00 02/21/17 08:59 01/25/17 22:43 Insulin Aspart (NovoLOG) BEFORE MEALS AND HS SUBQ 01/22/17 11:30 02/21/17 11:29 01/24/17 21:47 Lansoprazole (Prevacid) 30 mg DAILY ORAL 01/23/17 15:00 02/22/17 14:59 01/26/17 09:05 Nystatin (Nystop Powder) 1 applic Q12HR TOPIC 01/22/17 14:00 02/21/17 13:59 01/26/17 09:06 Ondansetron HCl (Zofran) 4 mg Q6H PRN IVP Nausea & Vomiting 01/22/17 07:00 02/21/17 06:59 Polyethylene Glycol (Miralax) 17 gm DAILYPRN PRN ORAL Constipation 01/22/17 07:00 02/21/17 06:59 Quetiapine Fumarate (SEROquel) 12.5 mg Q6H PRN ORAL Agitation 01/26/17 11:15 02/25/17 11:14 Sevelamer Carbonate (Renvela) 1,600 mg THREE TIMES A DAY ORAL 01/25/17 13:00 02/24/17 12:59 01/26/17 13:07 Temazepam (Restoril) 15 mg HSPRN PRN ORAL Insomnia 01/22/17 21:00 01/29/17 20:59 01/24/17 21:43 Allergies: Coded Allergies: No Known Allergies (Unverified , 01/22/17) ROS Limited/Unobtainable: Yes Subjective 76 YO F admitted with respiratory distress. Now CHF Exacerbation. RADHA. Cover for Int Med-Dr Jones. Worsening renal failure. Objective Last Vital Signs Date Time Temp Pulse Resp B/P (MAP) Pulse Ox O2 Delivery O2 Flow Rate FiO2 01/26/17 12:00 98.1 82 20 114/63 98 Venturi Mask 55 01/26/17 06:58 14.0 Laboratory Tests Test 01/26/17 03:30 01/26/17 03:45 Urine Eosinophils None seen White Blood Count 6.3 K/UL (4.8-10.8) Red Blood Count 3.39 M/UL (4.20-5.40) L Hemoglobin 9.1 G/DL (12.0-16.0) L Hematocrit 30.5 % (37.0-47.0) L Mean Corpuscular Volume 90 FL (80-99) Mean Corpuscular Hemoglobin 26.8 PG (27.0-31.0) L Mean Corpuscular Hemoglobin Concent 29.9 G/DL (32.0-36.0) L Red Cell Distribution Width 24.7 % (11.6-14.8) H Platelet Count 143 K/UL (150-450) L Mean Platelet Volume 5.9 FL (6.5-10.1) L Neutrophils (%) (Auto) 77.3 % (45.0-75.0) H Lymphocytes (%) (Auto) 10.7 % (20.0-45.0) L Monocytes (%) (Auto) 10.4 % (1.0-10.0) H Eosinophils (%) (Auto) 1.2 % (0.0-3.0) Basophils (%) (Auto) 0.4 % (0.0-2.0) Sodium Level 140 mEQ/L (135-145) Potassium Level 3.6 mEQ/L (3.4-4.9) Chloride Level 94 mEQ/L (98-107) L Carbon Dioxide Level 33 mEQ/L (20-30) H Anion Gap 13 (5-15) Blood Urea Nitrogen 73 mg/dL (7-23) H Creatinine 4.6 mg/dL (0.5-0.9) H Estimat Glomerular Filtration Rate mL/min (>60) Glucose Level 88 mg/dL (74-106) Uric Acid 8.0 mg/dL (3.0-7.5) H Calcium Level 9.0 mg/dL (8.6-10.2) Phosphorus Level 6.0 mg/dL (2.5-4.8) H Magnesium Level 1.8 mg/dL (1.7-2.5) Total Bilirubin 0.4 mg/dL (0.0-1.2) Aspartate Amino Transf (AST/SGOT) 15 U/L (5-40) Alanine Aminotransferase (ALT/SGPT) 5 U/L (3-33) Alkaline Phosphatase 53 U/L (35-104) C-Reactive Protein, Quantitative 1.3 mg/dL (< 0.5) H Pro-B-Type Natriuretic Peptide 20324 pg/mL (0-450) H Total Protein 6.5 g/dL (6.6-8.7) L Albumin 3.5 g/dL (3.5-5.2) Globulin 3.0 g/dL Albumin/Globulin Ratio 1.1 (1.0-2.7) Intake and Output 01/26/17 01/27/17 19:00 07:00 Output Total 55 ml Balance -55 ml Output Urine Total 55 ml # Bowel Movements 3 Objective General Appearance: alert, moderate distress, obese EENT: PERRL/EOMI, normal ENT inspection Neck: non-tender, normal alignment, supple Cardiovascular: normal peripheral pulses, normal rate, regular rhythm, no gallop/murmur, no JVD Respiratory/Chest: venturi mask; respiratory distress, crackles/rales, rhonchi - bilaterally, expiratory wheezing Abdomen: normal bowel sounds, non tender, soft, no organomegaly, no mass Extremities: normal range of motion Neurologic: door hanger II-XII grossly normal, no motor/sensory deficits Skin: normal pigmentation, warm/dry Assessment/Plan Problem List: (1) Atrial fibrillation Assessment & Plan: Rate controlled. See cardiology note. (2) Renal failure Assessment & Plan: Worsening. See nephrology note concerning possible dialysis on 01/27/17. (3) Respiratory distress Assessment & Plan: Due to CHF. See pulm note. Await cardiology consult-Dr Boone. Continue IV lasix (4) Morbid obesity (5) Congestive heart failure Assessment & Plan: LVEF=65-70%. Cont IV lasix. See cardiology consult. (6) Diabetes mellitus Assessment & Plan: Continue novolog sliding scale. Status: not improved NICK OATES Jan 26, 2017 13:31
[2017-01-26 16:00] VITALS: BP 116/61
[2017-01-26] MEDS ORDERED: Heparin Sod 1000 units/ml 10ml INJ ONE (17:45)
--- NOTE | 2017-01-26 18:05 | Consultation ---
History of Present Illness General Date patient seen: Jan 26, 2017 Time patient seen: 20:45 Chief Complaint: Dyspnea/Respdistress Reason for Consultation: ESBL in urine cx Present Illness HPI 76 y/o F with hx of CKD, CHF, Colon Cancer s/p resection 1999 and 2012, s/p chemo and radiation, DM2, morbid obesity, Afib, non-ambulatory, encephalopathy/ dementia presents to ED on 01/23 from SNF with SOB that began 1 day prior to admission. On the ED found to be hypoxic to 75 at RA and with CHF exacerbation, hypercapenic Patient was recently admitted ton [facility] on November 2016 with SOB and dishcarged to SNF about 3 1/2 weeks ago No fever, no leukocytosis. u/a with significant pyuria and Ucx grew ESBL e.coli. ID consulted for such. Allergies: Coded Allergies: No Known Allergies (Unverified , 01/22/17) Medication History Scheduled Allopurinol* (Allopurinol*), 300 MG ORAL DAILY, (Reported) Calcium Carbonate (Calcium Carbonate), 500 MG PO BID, (Reported) Epoetin Ash (Epogen), 10,000 UNIT SUBQ Q TUESDAY, (Reported) Ferrous Sulfate* (Ferrous Sulfate*), 325 MG ORAL DAILY, (Reported) Furosemide* (Lasix*), 80 MG ORAL BID, (Reported) Glipizide* (Glucotrol Xl*), 2.5 MG ORAL ACBREAKFAST, (Reported) Ipratropium/Albuterol Sulfate (DuoNeb 0.5-3(2.5)mg/3ml), 3 ML HHN EVERY 6 HOURS, (Reported) Sitagliptin (Januvia), 50 MG ORAL DAILY, (Reported) Sucralfate (Carafate), 2 GM ORAL BID, (Reported) Scheduled PRN Acetaminophen* (Acetaminophen 325MG Tablet*), 650 MG ORAL Q6H PRN for For Pain, (Reported) Diclofenac Sodium (Diclofenac Sodium), 2 GM TP FOUR TIMES A DAY PRN for For Pain , (Reported) Hydrocodone Bit/Acetaminophen 5-325* ([place] 5-325 Tablet*), 1 TAB ORAL EVERY 6 HOURS PRN for For Pain, (Reported) Zolpidem Tartrate* (Ambien*), 10 MG ORAL HS PRN for Insomnia, (Reported) Miscellaneous Medications Insulin Lispro (Humalog), 0 SUBQ, (Reported) Patient History Healthcare decision maker Zion Perez/ROSETTA Resuscitation status Full Code Advanced Directive on File No Patient History Narrative PMHx as above SHx: The patient is . The patient denies tobacco use. The patient denies alcohol use. FHx: non pertinent for ID Review of Systems ROS Narrative unable to obtain given dementia Physical Exam Physical Exam Narrative General: The patient is a well-developed, well-nourished, obese, lethargic female, in no apparent distress. HEENT: Eyes, pupils are equal and responsive to light and accommodation.Extraocular movements are intact. NECK: Supple without lymphadenopathy. Chest: Decreased breath sounds in the bilateral bases with crackles, otherwise clear to auscultation without wheezes or rales. Cardiovascular: Regular rate. S1 and S2 are normal without murmurs, rubs, or gallops. Abdomen: Soft, nontender, and nondistended. Positive bowel sounds. No evidence of hepatosplenomegaly. Currently, no rebound or guarding noted. EXTREMITIES: Negative for clubbing, cyanosis, or edema. Last 24 Hour Vital Signs Date Time Temp Pulse Resp B/P (MAP) Pulse Ox O2 Delivery O2 Flow Rate FiO2 01/26/17 16:00 97.2 75 20 116/61 98 Non-Rebreather 100 01/26/17 15:47 72 01/26/17 12:00 98.1 82 20 114/63 98 Venturi Mask 55 01/26/17 11:39 75 01/26/17 08:00 75 01/26/17 07:39 97.2 79 19 128/62 100 Venturi Mask 55 01/26/17 06:58 Venturi Mask 14.0 55 01/26/17 06:58 96 Venturi Mask 14.0 55 01/26/17 04:12 75 01/26/17 04:00 97.2 73 18 137/62 96 Mechanical Ventilator 14.0 55 01/26/17 03:30 14.0 55 01/26/17 01:03 94 14.0 55 01/26/17 00:00 90 01/26/17 00:00 97.2 81 18 133/58 96 Mechanical Ventilator 14.0 55 01/25/17 23:17 98 14.0 55 01/25/17 21:54 99 14.0 55 01/25/17 19:40 97.7 99 20 150/80 89 Mechanical Ventilator 01/25/17 19:30 96 15.0 55 01/25/17 19:20 99 Venturi Mask 14.0 55 01/25/17 19:00 Venturi Mask 14.0 55 Intake and Output 01/26/17 01/27/17 19:00 07:00 Output Total 105 ml Balance -105 ml Output Urine Total 105 ml # Bowel Movements 3 Laboratory Tests Test 01/26/17 03:30 01/26/17 03:45 Urine Eosinophils None seen White Blood Count 6.3 K/UL (4.8-10.8) Red Blood Count 3.39 M/UL (4.20-5.40) L Hemoglobin 9.1 G/DL (12.0-16.0) L Hematocrit 30.5 % (37.0-47.0) L Mean Corpuscular Volume 90 FL (80-99) Mean Corpuscular Hemoglobin 26.8 PG (27.0-31.0) L Mean Corpuscular Hemoglobin Concent 29.9 G/DL (32.0-36.0) L Red Cell Distribution Width 24.7 % (11.6-14.8) H Platelet Count 143 K/UL (150-450) L Mean Platelet Volume 5.9 FL (6.5-10.1) L Neutrophils (%) (Auto) 77.3 % (45.0-75.0) H Lymphocytes (%) (Auto) 10.7 % (20.0-45.0) L Monocytes (%) (Auto) 10.4 % (1.0-10.0) H Eosinophils (%) (Auto) 1.2 % (0.0-3.0) Basophils (%) (Auto) 0.4 % (0.0-2.0) Sodium Level 140 mEQ/L (135-145) Potassium Level 3.6 mEQ/L (3.4-4.9) Chloride Level 94 mEQ/L (98-107) L Carbon Dioxide Level 33 mEQ/L (20-30) H Anion Gap 13 (5-15) Blood Urea Nitrogen 73 mg/dL (7-23) H Creatinine 4.6 mg/dL (0.5-0.9) H Estimat Glomerular Filtration Rate mL/min (>60) Glucose Level 88 mg/dL (74-106) Uric Acid 8.0 mg/dL (3.0-7.5) H Calcium Level 9.0 mg/dL (8.6-10.2) Phosphorus Level 6.0 mg/dL (2.5-4.8) H Magnesium Level 1.8 mg/dL (1.7-2.5) Total Bilirubin 0.4 mg/dL (0.0-1.2) Aspartate Amino Transf (AST/SGOT) 15 U/L (5-40) Alanine Aminotransferase (ALT/SGPT) 5 U/L (3-33) Alkaline Phosphatase 53 U/L (35-104) C-Reactive Protein, Quantitative 1.3 mg/dL (< 0.5) H Pro-B-Type Natriuretic Peptide 27980 pg/mL (0-450) H Total Protein 6.5 g/dL (6.6-8.7) L Albumin 3.5 g/dL (3.5-5.2) Globulin 3.0 g/dL Albumin/Globulin Ratio 1.1 (1.0-2.7) Height (Feet): 5 Height (Inches): 4.00 Weight (Pounds): 302 Medications Current Medications Medications (Trade) Dose Ordered Sig/Johan Route PRN Reason Start Time Stop Time Status Last Admin Dose Admin Acetaminophen (Tylenol) 650 mg Q4H PRN ORAL T>100.5 01/22/17 07:00 02/21/17 06:59 01/23/17 21:09 Albuterol/ Ipratropium (DuoNeb 0.5-3(2.5)mg/3ml) 3 ml Q4H PRN HHN Shortness of Breath 01/22/17 07:00 01/27/17 06:59 Allopurinol (Allopurinol) 300 mg DAILY ORAL 01/22/17 09:00 02/21/17 08:59 01/26/17 09:05 Dextrose (Dextrose 50%) STAT PRN IV Hypoglycemia 01/22/17 07:00 02/21/17 06:59 Docusate Sodium (Colace) 100 mg TID ORAL 01/25/17 13:00 02/24/17 12:59 01/25/17 17:05 Haloperidol Lactate (Haldol) 2 mg Q4H PRN IM agitation 01/25/17 13:30 02/24/17 13:29 Heparin Sodium (Porcine) (Heparin 5000 units/ml) 5,000 units EVERY 12 HOURS SUBQ 01/22/17 09:00 02/21/17 08:59 01/25/17 22:43 Insulin Aspart (NovoLOG) BEFORE MEALS AND HS SUBQ 01/22/17 11:30 02/21/17 11:29 01/24/17 21:47 Lansoprazole (Prevacid) 30 mg DAILY ORAL 01/23/17 15:00 02/22/17 14:59 01/26/17 09:05 Nystatin (Nystop Powder) 1 applic Q12HR TOPIC 01/22/17 14:00 02/21/17 13:59 01/26/17 09:06 Ondansetron HCl (Zofran) 4 mg Q6H PRN IVP Nausea & Vomiting 01/22/17 07:00 02/21/17 06:59 Polyethylene Glycol (Miralax) 17 gm DAILYPRN PRN ORAL Constipation 01/22/17 07:00 02/21/17 06:59 Quetiapine Fumarate (SEROquel) 12.5 mg Q6H PRN ORAL Agitation 01/26/17 11:15 02/25/17 11:14 Sevelamer Carbonate (Renvela) 1,600 mg THREE TIMES A DAY ORAL 01/25/17 13:00 02/24/17 12:59 01/26/17 17:51 Temazepam (Restoril) 15 mg HSPRN PRN ORAL Insomnia 01/22/17 21:00 01/29/17 20:59 01/24/17 21:43 Assessment/Plan Assessment/Plan Abx: Vanco/Zosyn x1 01/22 Assesment: SOB- 2ry to CHF exacerbation and mild hypercapnea Pyuria/ ESBL bacteriuria -u/a WBC too many to count, nit neg, leuk +3, Ucx >100K E.coli ESBL (S. Erta, cipro, nitrofurantoin, bactrim) -Bcx NTD Afebrile, no leukocytosis JIMENEZ on CKD CKD, CHF, Colon Cancer s/p resection 1999 and 2012, s/p chemo and radiation, DM2 , morbid obesity, Afib, non-ambulatory, encephalopathy/dementia Plan: -Continue to monitor off abx,unless febrile, leukocytosis or HD instability -f/u Bcx -monitor CCBC/BMP, temperatures -Aspiration precautions Thank you for this consultation. WIll continue to follow along with you. Discussed with DARRYL. Ai Salinas M.D. Jan 26, 2017 18:05
--- NOTE | 2017-01-26 19:10 | Consultation ---
History of Present Illness General Chief Complaint: Dyspnea/Respdistress Present Illness HPI 76-year-old female, presents with a chief complaint of shortness of breath. the pt has been progressively more confuse. and pw waxing and waning of conciousness, the pt attepted to pull out her IV line. the pt was calm during me eval and out of restraints. non responsive and is disoriented Allergies: Coded Allergies: No Known Allergies (Unverified , 01/22/17) Medication History Scheduled Allopurinol* (Allopurinol*), 300 MG ORAL DAILY, (Reported) Calcium Carbonate (Calcium Carbonate), 500 MG PO BID, (Reported) Epoetin Ash (Epogen), 10,000 UNIT SUBQ Q TUESDAY, (Reported) Ferrous Sulfate* (Ferrous Sulfate*), 325 MG ORAL DAILY, (Reported) Furosemide* (Lasix*), 80 MG ORAL BID, (Reported) Glipizide* (Glucotrol Xl*), 2.5 MG ORAL ACBREAKFAST, (Reported) Ipratropium/Albuterol Sulfate (DuoNeb 0.5-3(2.5)mg/3ml), 3 ML HHN EVERY 6 HOURS, (Reported) Sitagliptin (Januvia), 50 MG ORAL DAILY, (Reported) Sucralfate (Carafate), 2 GM ORAL BID, (Reported) Scheduled PRN Acetaminophen* (Acetaminophen 325MG Tablet*), 650 MG ORAL Q6H PRN for For Pain, (Reported) Diclofenac Sodium (Diclofenac Sodium), 2 GM TP FOUR TIMES A DAY PRN for For Pain , (Reported) Hydrocodone Bit/Acetaminophen 5-325* ([place] 5-325 Tablet*), 1 TAB ORAL EVERY 6 HOURS PRN for For Pain, (Reported) Zolpidem Tartrate* (Ambien*), 10 MG ORAL HS PRN for Insomnia, (Reported) Miscellaneous Medications Insulin Lispro (Humalog), 0 SUBQ, (Reported) Patient History History Provided By: Patient, Significant Other, Medical Record, Caregiver, PMD Healthcare decision maker Zion Perez/ROSETTA Resuscitation status Full Code Advanced Directive on File No Review of Systems Psychiatric: Reports: prior hx Physical Exam Neurologic: disoriented, unresponsiveness Last 24 Hour Vital Signs Date Time Temp Pulse Resp B/P (MAP) Pulse Ox O2 Delivery O2 Flow Rate FiO2 01/26/17 16:00 97.2 75 20 116/61 98 Non-Rebreather 100 01/26/17 15:47 72 01/26/17 12:00 98.1 82 20 114/63 98 Venturi Mask 55 01/26/17 11:39 75 01/26/17 08:00 75 01/26/17 07:39 97.2 79 19 128/62 100 Venturi Mask 55 01/26/17 06:58 Venturi Mask 14.0 55 01/26/17 06:58 96 Venturi Mask 14.0 55 01/26/17 04:12 75 01/26/17 04:00 97.2 73 18 137/62 96 Mechanical Ventilator 14.0 55 01/26/17 03:30 14.0 55 01/26/17 01:03 94 14.0 55 01/26/17 00:00 90 01/26/17 00:00 97.2 81 18 133/58 96 Mechanical Ventilator 14.0 55 01/25/17 23:17 98 14.0 55 01/25/17 21:54 99 14.0 55 01/25/17 19:40 97.7 99 20 150/80 89 Mechanical Ventilator 01/25/17 19:30 96 15.0 55 01/25/17 19:20 99 Venturi Mask 14.0 55 Intake and Output 01/26/17 01/27/17 19:00 07:00 Output Total 305 ml Balance -305 ml Output Urine Total 305 ml # Bowel Movements 5 Laboratory Tests Test 01/26/17 03:30 01/26/17 03:45 Urine Eosinophils None seen White Blood Count 6.3 K/UL (4.8-10.8) Red Blood Count 3.39 M/UL (4.20-5.40) L Hemoglobin 9.1 G/DL (12.0-16.0) L Hematocrit 30.5 % (37.0-47.0) L Mean Corpuscular Volume 90 FL (80-99) Mean Corpuscular Hemoglobin 26.8 PG (27.0-31.0) L Mean Corpuscular Hemoglobin Concent 29.9 G/DL (32.0-36.0) L Red Cell Distribution Width 24.7 % (11.6-14.8) H Platelet Count 143 K/UL (150-450) L Mean Platelet Volume 5.9 FL (6.5-10.1) L Neutrophils (%) (Auto) 77.3 % (45.0-75.0) H Lymphocytes (%) (Auto) 10.7 % (20.0-45.0) L Monocytes (%) (Auto) 10.4 % (1.0-10.0) H Eosinophils (%) (Auto) 1.2 % (0.0-3.0) Basophils (%) (Auto) 0.4 % (0.0-2.0) Sodium Level 140 mEQ/L (135-145) Potassium Level 3.6 mEQ/L (3.4-4.9) Chloride Level 94 mEQ/L (98-107) L Carbon Dioxide Level 33 mEQ/L (20-30) H Anion Gap 13 (5-15) Blood Urea Nitrogen 73 mg/dL (7-23) H Creatinine 4.6 mg/dL (0.5-0.9) H Estimat Glomerular Filtration Rate mL/min (>60) Glucose Level 88 mg/dL (74-106) Uric Acid 8.0 mg/dL (3.0-7.5) H Calcium Level 9.0 mg/dL (8.6-10.2) Phosphorus Level 6.0 mg/dL (2.5-4.8) H Magnesium Level 1.8 mg/dL (1.7-2.5) Total Bilirubin 0.4 mg/dL (0.0-1.2) Aspartate Amino Transf (AST/SGOT) 15 U/L (5-40) Alanine Aminotransferase (ALT/SGPT) 5 U/L (3-33) Alkaline Phosphatase 53 U/L (35-104) C-Reactive Protein, Quantitative 1.3 mg/dL (< 0.5) H Pro-B-Type Natriuretic Peptide 84307 pg/mL (0-450) H Total Protein 6.5 g/dL (6.6-8.7) L Albumin 3.5 g/dL (3.5-5.2) Globulin 3.0 g/dL Albumin/Globulin Ratio 1.1 (1.0-2.7) Height (Feet): 5 Height (Inches): 4.00 Weight (Pounds): 302 Medications Current Medications Medications (Trade) Dose Ordered Sig/Johan Route PRN Reason Start Time Stop Time Status Last Admin Dose Admin Acetaminophen (Tylenol) 650 mg Q4H PRN ORAL T>100.5 01/22/17 07:00 02/21/17 06:59 01/23/17 21:09 Albuterol/ Ipratropium (DuoNeb 0.5-3(2.5)mg/3ml) 3 ml Q4H PRN HHN Shortness of Breath 01/22/17 07:00 01/27/17 06:59 Allopurinol (Allopurinol) 300 mg DAILY ORAL 01/22/17 09:00 02/21/17 08:59 01/26/17 09:05 Chlorhexidine Gluconate (Abigail-Hex 2%) 1 applic BEDTIME TOPIC 01/26/17 21:00 02/25/17 20:59 Dextrose (Dextrose 50%) STAT PRN IV Hypoglycemia 01/22/17 07:00 02/21/17 06:59 Docusate Sodium (Colace) 100 mg TID ORAL 01/25/17 13:00 02/24/17 12:59 01/25/17 17:05 Haloperidol Lactate (Haldol) 2 mg Q4H PRN IM agitation 01/25/17 13:30 02/24/17 13:29 Heparin Sodium (Porcine) (Heparin 5000 units/ml) 5,000 units EVERY 12 HOURS SUBQ 01/22/17 09:00 02/21/17 08:59 01/25/17 22:43 Insulin Aspart (NovoLOG) BEFORE MEALS AND HS SUBQ 01/22/17 11:30 02/21/17 11:29 01/24/17 21:47 Lansoprazole (Prevacid) 30 mg DAILY ORAL 01/23/17 15:00 02/22/17 14:59 01/26/17 09:05 Nystatin (Nystop Powder) 1 applic Q12HR TOPIC 01/22/17 14:00 02/21/17 13:59 01/26/17 09:06 Ondansetron HCl (Zofran) 4 mg Q6H PRN IVP Nausea & Vomiting 01/22/17 07:00 02/21/17 06:59 Polyethylene Glycol (Miralax) 17 gm DAILYPRN PRN ORAL Constipation 01/22/17 07:00 02/21/17 06:59 Quetiapine Fumarate (SEROquel) 12.5 mg Q6H PRN ORAL Agitation 01/26/17 11:15 02/25/17 11:14 Sevelamer Carbonate (Renvela) 1,600 mg THREE TIMES A DAY ORAL 01/25/17 13:00 02/24/17 12:59 01/26/17 17:51 Temazepam (Restoril) 15 mg HSPRN PRN ORAL Insomnia 01/22/17 21:00 01/29/17 20:59 01/24/17 21:43 Assessment/Plan Status: unchanged Assessment/Plan encephalopathy due [facility] restraints as needed Rodrick Null M.D. Jan 26, 2017 19:10
--- NOTE | 2017-01-26 19:49 | Cardiology Progress Note ---
Assessment/Plan Assessment/Plan 1. Congestive heart failure with preserved left ventricular systolic function. 2. Right heart failure. 3. Pulmonary hypertension. 4. Severe tricuspid regurgitation. 5. Permanent atrial fibrillation. 6. Moderate tricuspid regurgitation. 7. Chronic renal insufficiency. 8. Anemia. 9. Urinary tract infection. 10. Obesity. 11. History of colon cancer. 12. Diabetes mellitus. await dialysis tele afib vr is fine oxygenating adequately on face mask is not on anticoagulation because of recent gastrointestinal bleeding requiring blood transfusions Subjective ROS Limited/Unobtainable: Yes Objective Last 24 Hour Vital Signs Date Time Temp Pulse Resp B/P (MAP) Pulse Ox O2 Delivery O2 Flow Rate FiO2 01/26/17 19:34 81 20 Venturi Mask 10.0 45 01/26/17 19:32 98 Venturi Mask 10.0 45 01/26/17 19:32 Venturi Mask 10.0 45 01/26/17 16:00 97.2 75 20 116/61 98 Non-Rebreather 100 01/26/17 15:47 72 01/26/17 12:00 98.1 82 20 114/63 98 Venturi Mask 55 01/26/17 11:39 75 01/26/17 08:00 75 01/26/17 07:39 97.2 79 19 128/62 100 Venturi Mask 55 01/26/17 06:58 Venturi Mask 14.0 55 01/26/17 06:58 96 Venturi Mask 14.0 55 01/26/17 04:12 75 01/26/17 04:00 97.2 73 18 137/62 96 Mechanical Ventilator 14.0 55 01/26/17 03:30 14.0 55 01/26/17 01:03 94 14.0 55 01/26/17 00:00 90 01/26/17 00:00 97.2 81 18 133/58 96 Mechanical Ventilator 14.0 55 01/25/17 23:17 98 14.0 55 01/25/17 21:54 99 14.0 55 General Appearance: other - non face amsk seem to be saturing ok Neck: supple, no JVD Cardiovascular: irregularly irregular Respiratory/Chest: decreased breath sounds Abdomen: normal bowel sounds, soft Extremities: moderate edema Intake and Output 01/26/17 01/27/17 19:00 07:00 Output Total 305 ml Balance -305 ml Output Urine Total 305 ml # Bowel Movements 5 Laboratory Tests Test 01/26/17 03:30 01/26/17 03:45 Urine Eosinophils None seen White Blood Count 6.3 K/UL (4.8-10.8) Red Blood Count 3.39 M/UL (4.20-5.40) L Hemoglobin 9.1 G/DL (12.0-16.0) L Hematocrit 30.5 % (37.0-47.0) L Mean Corpuscular Volume 90 FL (80-99) Mean Corpuscular Hemoglobin 26.8 PG (27.0-31.0) L Mean Corpuscular Hemoglobin Concent 29.9 G/DL (32.0-36.0) L Red Cell Distribution Width 24.7 % (11.6-14.8) H Platelet Count 143 K/UL (150-450) L Mean Platelet Volume 5.9 FL (6.5-10.1) L Neutrophils (%) (Auto) 77.3 % (45.0-75.0) H Lymphocytes (%) (Auto) 10.7 % (20.0-45.0) L Monocytes (%) (Auto) 10.4 % (1.0-10.0) H Eosinophils (%) (Auto) 1.2 % (0.0-3.0) Basophils (%) (Auto) 0.4 % (0.0-2.0) Sodium Level 140 mEQ/L (135-145) Potassium Level 3.6 mEQ/L (3.4-4.9) Chloride Level 94 mEQ/L (98-107) L Carbon Dioxide Level 33 mEQ/L (20-30) H Anion Gap 13 (5-15) Blood Urea Nitrogen 73 mg/dL (7-23) H Creatinine 4.6 mg/dL (0.5-0.9) H Estimat Glomerular Filtration Rate mL/min (>60) Glucose Level 88 mg/dL (74-106) Uric Acid 8.0 mg/dL (3.0-7.5) H Calcium Level 9.0 mg/dL (8.6-10.2) Phosphorus Level 6.0 mg/dL (2.5-4.8) H Magnesium Level 1.8 mg/dL (1.7-2.5) Total Bilirubin 0.4 mg/dL (0.0-1.2) Aspartate Amino Transf (AST/SGOT) 15 U/L (5-40) Alanine Aminotransferase (ALT/SGPT) 5 U/L (3-33) Alkaline Phosphatase 53 U/L (35-104) C-Reactive Protein, Quantitative 1.3 mg/dL (< 0.5) H Pro-B-Type Natriuretic Peptide 64773 pg/mL (0-450) H Total Protein 6.5 g/dL (6.6-8.7) L Albumin 3.5 g/dL (3.5-5.2) Globulin 3.0 g/dL Albumin/Globulin Ratio 1.1 (1.0-2.7) JULIO MUNOZ Jan 26, 2017 19:49
[2017-01-26 20:00] VITALS: BP 138/70
[2017-01-26] MEDS: Dyna-Hex 2% Top Sol 2oz TOPIC SCH (20:34)
[2017-01-27] VITALS (7 sets, daily range): BP systolic 120–143; BP diastolic 58–70
[2017-01-27 05:14] LABS: BASOPHILS % (AUTO) 0.3 % (0.0-2.0); EOSINOPHILS % (AUTO) 1.5 % (0.0-3.0); LYMPHOCYTES % (AUTO) 10.9 % (20.0-45.0); MEAN CORPUSCULAR HEMOGLOBIN 26.5 PG (27.0-31.0); MEAN CORPUSCULAR HGB CONC 29.3 G/DL (32.0-36.0); MEAN CORPUSCULAR VOLUME 90 FL (80-99); MEAN PLATELET VOLUME 5.5 FL (6.5-10.1); MONOCYTES % (AUTO) 8.7 % (1.0-10.0); NEUTROPHILS % (AUTO) 78.6 % (45.0-75.0); PLATELET COUNT 143 K/UL (150-450); RED BLOOD COUNT 3.36 M/UL (4.20-5.40); RED CELL DISTRIBUTION WIDTH 24.4 % (11.6-14.8); WHITE BLOOD COUNT 6.5 K/UL (4.8-10.8)
[2017-01-27 05:30] LABS: ALANINE AMINOTRANSFERASE 5 U/L (3-33); ALBUMIN/GLOBULIN RATIO 1.1 (1.0-2.7); ANION GAP 12 (5-15); ASPARTATE AMINO TRANSFERASE 13 U/L (5-40); CARBON DIOXIDE 34 mEQ/L (20-30); CHLORIDE 95 mEQ/L (98-107); CREATININE 4.7 mg/dL (0.5-0.9); CRP QUANT 1.2 mg/dL (< 0.5); HEMOLYSIS 0; MAGNESIUM 1.8 mg/dL (1.7-2.5); PHOSPHORUS 6.7 mg/dL (2.5-4.8); POTASSIUM 3.8 mEQ/L (3.4-4.9); SODIUM 141 mEQ/L (135-145); TOTAL PROTEIN 6.6 g/dL (6.6-8.7); URIC ACID 8.2 mg/dL (3.0-7.5)
[2017-01-27] MEDS: NovoLOG Insulin Flexpen SUBQ SCH ×4 (06:10→21:21)
[2017-01-27] MEDS: Docusate 100mg cap ORAL SCH ×3 (08:47→17:50)
[2017-01-27] MEDS: Heparin 5000 units/ml inj SUBQ SCH ×2 (08:49→21:21)
[2017-01-27] MEDS: Nystatin Powder 100,000 units/gm 15gm TOPIC SCH ×2 (08:50→21:21)
--- NOTE | 2017-01-27 09:30 | Infectious Diseases Prog Note ---
Assessment/Plan Assessment/Plan Abx: Vanco/Zosyn x1 01/22 Assesment: SOB- 2ry to CHF exacerbation and mild hypercapnea Pyuria/ ESBL bacteriuria -u/a WBC too many to count, nit neg, leuk +3, Ucx >100K E.coli ESBL (S. Erta, cipro, nitrofurantoin, bactrim) -Bcx Neg Afebrile, no leukocytosis JIMENEZ on CKD CKD, CHF, Colon Cancer s/p resection 1999 and 2012, s/p chemo and radiation, DM2 , morbid obesity, Afib, non-ambulatory, encephalopathy/dementia Plan: -Continue to monitor off abx,unless febrile, leukocytosis or HD instability -monitor CCBC/BMP, temperatures -Aspiration precautions Thank you for this consultation. WIll continue to follow along with you. Discussed with RN. Subjective Allergies: Coded Allergies: No Known Allergies (Unverified , 01/22/17) Subjective remains afebrile off abx no leukocytosis bcx neg Objective Vital Signs Last 24 Hour Vital Signs Date Time Temp Pulse Resp B/P (MAP) Pulse Ox O2 Delivery O2 Flow Rate FiO2 01/27/17 08:38 79 01/27/17 06:34 Venturi Mask 10.0 45 01/27/17 06:34 76 19 Venturi Mask 10.0 45 01/27/17 06:34 95 Venturi Mask 10.0 45 01/27/17 04:00 97.5 80 18 120/66 99 Non-Rebreather 100 01/27/17 04:00 40 01/27/17 04:00 81 01/27/17 00:00 96.8 85 19 126/61 100 Non-Rebreather 100 01/27/17 00:00 40 01/27/17 00:00 74 01/26/17 20:00 40 01/26/17 20:00 86 01/26/17 20:00 97.5 88 18 138/70 97 Non-Rebreather 100 01/26/17 19:34 81 20 Venturi Mask 10.0 45 01/26/17 19:32 98 Venturi Mask 10.0 45 01/26/17 19:32 Venturi Mask 10.0 45 01/26/17 16:00 97.2 75 20 116/61 98 Non-Rebreather 100 01/26/17 15:47 72 01/26/17 12:00 98.1 82 20 114/63 98 Venturi Mask 55 01/26/17 11:39 75 Height (Feet): 5 Height (Inches): 4.00 Weight (Pounds): 302 Objective General: The patient is a well-developed, well-nourished, obese, lethargic female, in no apparent distress. HEENT: Eyes, pupils are equal and responsive to light and accommodation.Extraocular movements are intact. NECK: Supple without lymphadenopathy. Chest: Decreased breath sounds in the bilateral bases with crackles, otherwise clear to auscultation without wheezes or rales. Cardiovascular: Regular rate. S1 and S2 are normal without murmurs, rubs, or gallops. Abdomen: Soft, nontender, and nondistended. Positive bowel sounds. No evidence of hepatosplenomegaly. Currently, no rebound or guarding noted. EXTREMITIES: Negative for clubbing, cyanosis, or edema reviewed Laboratory Tests Test 01/27/17 04:00 White Blood Count 6.5 K/UL (4.8-10.8) Red Blood Count 3.36 M/UL (4.20-5.40) L Hemoglobin 8.9 G/DL (12.0-16.0) L Hematocrit 30.4 % (37.0-47.0) L Mean Corpuscular Volume 90 FL (80-99) Mean Corpuscular Hemoglobin 26.5 PG (27.0-31.0) L Mean Corpuscular Hemoglobin Concent 29.3 G/DL (32.0-36.0) L Red Cell Distribution Width 24.4 % (11.6-14.8) H Platelet Count 143 K/UL (150-450) L Mean Platelet Volume 5.5 FL (6.5-10.1) L Neutrophils (%) (Auto) 78.6 % (45.0-75.0) H Lymphocytes (%) (Auto) 10.9 % (20.0-45.0) L Monocytes (%) (Auto) 8.7 % (1.0-10.0) Eosinophils (%) (Auto) 1.5 % (0.0-3.0) Basophils (%) (Auto) 0.3 % (0.0-2.0) Sodium Level 141 mEQ/L (135-145) Potassium Level 3.8 mEQ/L (3.4-4.9) Chloride Level 95 mEQ/L (98-107) L Carbon Dioxide Level 34 mEQ/L (20-30) H Anion Gap 12 (5-15) Blood Urea Nitrogen 76 mg/dL (7-23) H Creatinine 4.7 mg/dL (0.5-0.9) H Estimat Glomerular Filtration Rate mL/min (>60) Glucose Level 90 mg/dL (74-106) Uric Acid 8.2 mg/dL (3.0-7.5) H Calcium Level 9.0 mg/dL (8.6-10.2) Phosphorus Level 6.7 mg/dL (2.5-4.8) H Magnesium Level 1.8 mg/dL (1.7-2.5) Total Bilirubin 0.5 mg/dL (0.0-1.2) Aspartate Amino Transf (AST/SGOT) 13 U/L (5-40) Alanine Aminotransferase (ALT/SGPT) 5 U/L (3-33) Alkaline Phosphatase 48 U/L (35-104) C-Reactive Protein, Quantitative 1.2 mg/dL (< 0.5) H Pro-B-Type Natriuretic Peptide 97500 pg/mL (0-450) H Total Protein 6.6 g/dL (6.6-8.7) Albumin 3.5 g/dL (3.5-5.2) Globulin 3.1 g/dL Albumin/Globulin Ratio 1.1 (1.0-2.7) Current Medications Medications (Trade) Dose Ordered Sig/Johan Route PRN Reason Start Time Stop Time Status Last Admin Dose Admin Acetaminophen (Tylenol) 650 mg Q4H PRN ORAL T>100.5 01/22/17 07:00 02/21/17 06:59 01/23/17 21:09 Allopurinol (Allopurinol) 300 mg DAILY ORAL 01/22/17 09:00 02/21/17 08:59 01/27/17 08:46 Chlorhexidine Gluconate (Abigail-Hex 2%) 1 applic BEDTIME TOPIC 01/26/17 21:00 02/25/17 20:59 01/26/17 20:34 Dextrose (Dextrose 50%) STAT PRN IV Hypoglycemia 01/22/17 07:00 02/21/17 06:59 Docusate Sodium (Colace) 100 mg TID ORAL 01/25/17 13:00 02/24/17 12:59 01/27/17 08:47 Haloperidol Lactate (Haldol) 2 mg Q4H PRN IM agitation 01/25/17 13:30 02/24/17 13:29 Heparin Sodium (Porcine) (Heparin 5000 units/ml) 5,000 units EVERY 12 HOURS SUBQ 01/22/17 09:00 02/21/17 08:59 01/26/17 20:37 Insulin Aspart (NovoLOG) BEFORE MEALS AND HS SUBQ 01/22/17 11:30 02/21/17 11:29 01/26/17 20:36 Lansoprazole (Prevacid) 30 mg DAILY ORAL 01/23/17 15:00 02/22/17 14:59 01/27/17 08:46 Nystatin (Nystop Powder) 1 applic Q12HR TOPIC 01/22/17 14:00 02/21/17 13:59 01/27/17 08:50 Ondansetron HCl (Zofran) 4 mg Q6H PRN IVP Nausea & Vomiting 01/22/17 07:00 02/21/17 06:59 Polyethylene Glycol (Miralax) 17 gm DAILYPRN PRN ORAL Constipation 01/22/17 07:00 02/21/17 06:59 Quetiapine Fumarate (SEROquel) 12.5 mg Q6H PRN ORAL Agitation 01/26/17 11:15 02/25/17 11:14 Sevelamer Carbonate (Renvela) 1,600 mg THREE TIMES A DAY ORAL 01/25/17 13:00 02/24/17 12:59 01/27/17 08:46 Temazepam (Restoril) 15 mg HSPRN PRN ORAL Insomnia 01/22/17 21:00 01/29/17 20:59 01/24/17 21:43 Ai Salinas M.D. Jan 27, 2017 09:30
--- NOTE | 2017-01-27 10:25 | Wound Nurse Progress Note ---
Wound RN Progress Note Wound Consult #1 Bilateral breast folds intertrigo rash.- no further deterioration present, continue wound care as ordered, keep clean and dry. #2 Abdominal fold intertrigo-rash.- no further deterioration present, continue wound care as ordered, keep clean and dry. #3 Left popliteal fossa fold intertrigo rash - no further deterioration present , continue wound care as ordered, keep clean and dry. #4 perineal area chemical burn/redness.- no further deterioration present, continue wound care as ordered, keep clean and dry. #5 sacral scattered DTI denuded revealing self as stage 2.- noted site still remains present with scattered maroon areas, no further deterioration present , open pressure ulcer wound bed pink , keep clean and dry, offload affected pressure ulcer site. continue wound care as previously ordered. admitted wound sites reassessed no further deterioration present, current wound care is effective, noted good progress to wound sites. Recommendation. - Keep skin folds clean and dry. -Local wound care as ordered. -Turn and reposition. -Low air loss mattress for skin and wound management. -Optimize nutrition -Keep clean and dry. -Avoid shear and friction. -Heel protectors. -Offload heels. -Assess and notify MD if any further change of condition to skin present. BRETT PEARL Jan 27, 2017 10:25
--- NOTE | 2017-01-27 10:49 | Pulmonology Progress Note ---
Assessment/Plan Problems: (1) Respiratory distress (2) Congestive heart failure (3) Morbid obesity (4) Diabetes mellitus (5) TALITA (obstructive sleep apnea) Assessment/Plan haldodl for agitation check echo and renal US check sputum titrate fio2 check electrolytes 24 urine collection start HD today Subjective ROS Limited/Unobtainable: No Constitutional: Reports: no symptoms HEENT: Repors: no symptoms Allergies: Coded Allergies: No Known Allergies (Unverified , 01/22/17) Objective Last 24 Hour Vital Signs Date Time Temp Pulse Resp B/P (MAP) Pulse Ox O2 Delivery O2 Flow Rate FiO2 01/27/17 08:38 79 01/27/17 08:00 97.5 79 21 132/70 97 Non-Rebreather 45 01/27/17 06:34 Venturi Mask 10.0 45 01/27/17 06:34 76 19 Venturi Mask 10.0 45 01/27/17 06:34 95 Venturi Mask 10.0 45 01/27/17 04:00 97.5 80 18 120/66 99 Non-Rebreather 100 01/27/17 04:00 40 01/27/17 04:00 81 01/27/17 00:00 96.8 85 19 126/61 100 Non-Rebreather 100 01/27/17 00:00 40 01/27/17 00:00 74 01/26/17 20:00 40 01/26/17 20:00 86 01/26/17 20:00 97.5 88 18 138/70 97 Non-Rebreather 100 01/26/17 19:34 81 20 Venturi Mask 10.0 45 01/26/17 19:32 98 Venturi Mask 10.0 45 01/26/17 19:32 Venturi Mask 10.0 45 01/26/17 16:00 97.2 75 20 116/61 98 Non-Rebreather 100 01/26/17 15:47 72 01/26/17 12:00 98.1 82 20 114/63 98 Venturi Mask 55 01/26/17 11:39 75 General Appearance: WD/WN HEENT: normocephalic, atraumatic Respiratory/Chest: chest wall non-tender, lungs clear Breasts: no masses Cardiovascular: normal peripheral pulses, normal rate Abdomen: normal bowel sounds, soft, non tender Skin: no rash 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: mild disabilities 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, no motor/sensory deficits Lymphatic: no neck adenopathy Laboratory Tests 01/27/17 04:00: White Blood Count 6.5, Red Blood Count 3.36L, Hemoglobin 8.9L, Hematocrit 30.4L , Mean Corpuscular Volume 90, Mean Corpuscular Hemoglobin 26.5L, Mean Corpuscular Hemoglobin Concent 29.3L, Red Cell Distribution Width 24.4H, Platelet Count 143L, Mean Platelet Volume 5.5L, Neutrophils (%) (Auto) 78.6H, Lymphocytes (%) (Auto) 10.9L, Monocytes (%) (Auto) 8.7, Eosinophils (%) (Auto) 1.5, Basophils (%) (Auto) 0.3, Sodium Level 141, Potassium Level 3.8, Chloride Level 95L, Carbon Dioxide Level 34H, Anion Gap 12, Blood Urea Nitrogen 76H, Creatinine 4.7H, Estimat Glomerular Filtration Rate , Glucose Level 90, Uric Acid 8.2H, Calcium Level 9.0, Phosphorus Level 6.7H, Magnesium Level 1.8, Total Bilirubin 0.5, Aspartate Amino Transf (AST/SGOT) 13, Alanine Aminotransferase ( ALT/SGPT) 5, Alkaline Phosphatase 48, C-Reactive Protein, Quantitative 1.2H, Pro -B-Type Natriuretic Peptide 84699P, Total Protein 6.6, Albumin 3.5, Globulin 3.1 , Albumin/Globulin Ratio 1.1 Current Medications Medications (Trade) Dose Ordered Sig/Johan Route PRN Reason Start Time Stop Time Status Last Admin Dose Admin Acetaminophen (Tylenol) 650 mg Q4H PRN ORAL T>100.5 01/22/17 07:00 02/21/17 06:59 01/23/17 21:09 Allopurinol (Allopurinol) 300 mg DAILY ORAL 01/22/17 09:00 02/21/17 08:59 01/27/17 08:46 Chlorhexidine Gluconate (Abigail-Hex 2%) 1 applic BEDTIME TOPIC 01/26/17 21:00 02/25/17 20:59 01/26/17 20:34 Dextrose (Dextrose 50%) STAT PRN IV Hypoglycemia 01/22/17 07:00 02/21/17 06:59 Docusate Sodium (Colace) 100 mg TID ORAL 01/25/17 13:00 11/2/17 12:59 01/27/17 08:47 Haloperidol Lactate (Haldol) 2 mg Q4H PRN IM agitation 01/25/17 13:30 02/24/17 13:29 Heparin Sodium (Porcine) (Heparin 5000 units/ml) 5,000 units EVERY 12 HOURS SUBQ 01/22/17 09:00 02/21/17 08:59 01/26/17 20:37 Insulin Aspart (NovoLOG) BEFORE MEALS AND HS SUBQ 01/22/17 11:30 02/21/17 11:29 01/26/17 20:36 Lansoprazole (Prevacid) 30 mg DAILY ORAL 01/23/17 15:00 02/22/17 14:59 01/27/17 08:46 Nystatin (Nystop Powder) 1 applic Q12HR TOPIC 01/22/17 14:00 02/21/17 13:59 01/27/17 08:50 Ondansetron HCl (Zofran) 4 mg Q6H PRN IVP Nausea & Vomiting 01/22/17 07:00 02/21/17 06:59 Polyethylene Glycol (Miralax) 17 gm DAILYPRN PRN ORAL Constipation 01/22/17 07:00 02/21/17 06:59 Quetiapine Fumarate (SEROquel) 12.5 mg Q6H PRN ORAL Agitation 01/26/17 11:15 02/25/17 11:14 Sevelamer Carbonate (Renvela) 1,600 mg THREE TIMES A DAY ORAL 01/25/17 13:00 02/24/17 12:59 01/27/17 08:46 Temazepam (Restoril) 15 mg HSPRN PRN ORAL Insomnia 01/22/17 21:00 01/29/17 20:59 01/24/17 21:43 LINDY JORDAN Jan 27, 2017 10:49
--- NOTE | 2017-01-27 11:26 | General Progress Note ---
Assessment/Plan Status: stable Status Narrative on HD dialysis now Assessment/Plan Renal failure, likely chronic with superimposed acute ASSESSMENT: This is a 76-year-old white female with: -. Shortness of breath. Respiratory failure, Hypoxia -. Acute congestive heart failure. -. Diabetes type 2. -. Atrial fibrillation. -. Congestive heart failure. Right heart failure -. Morbid obesity. -. History of colon cancer. -. TALITA -. Anemia plan: need HD- receiving now 24 h urine CrCl 6 mag and K supplement as needed Optimize cardiac and pulmonary status- Monitor renal parameters avoid Nephrotoxics Urine studies 2D Echo- reviewed Right cardiac chamber sizes are severely enlarged.RV hypokinesis Kidney DEBI, unremarkable gastric coverage anemia nguyen stool softners long discussion with Zion Perez the brother 01/25/17 Dialysis discussed,.will wait another day and check Cr level Subjective ROS Limited/Unobtainable: No Constitutional: Reports: malaise Allergies: Coded Allergies: No Known Allergies (Unverified , 01/22/17) Objective Last 24 Hour Vital Signs Date Time Temp Pulse Resp B/P (MAP) Pulse Ox O2 Delivery O2 Flow Rate FiO2 01/27/17 08:38 79 01/27/17 08:00 97.5 79 21 132/70 97 Non-Rebreather 45 01/27/17 06:34 Venturi Mask 10.0 45 01/27/17 06:34 76 19 Venturi Mask 10.0 45 01/27/17 06:34 95 Venturi Mask 10.0 45 01/27/17 04:00 97.5 80 18 120/66 99 Non-Rebreather 100 01/27/17 04:00 40 01/27/17 04:00 81 01/27/17 00:00 96.8 85 19 126/61 100 Non-Rebreather 100 01/27/17 00:00 40 01/27/17 00:00 74 01/26/17 20:00 40 01/26/17 20:00 86 01/26/17 20:00 97.5 88 18 138/70 97 Non-Rebreather 100 01/26/17 19:34 81 20 Venturi Mask 10.0 45 01/26/17 19:32 98 Venturi Mask 10.0 45 01/26/17 19:32 Venturi Mask 10.0 45 01/26/17 16:00 97.2 75 20 116/61 98 Non-Rebreather 100 01/26/17 15:47 72 01/26/17 12:00 98.1 82 20 114/63 98 Venturi Mask 55 01/26/17 11:39 75 Laboratory Tests 01/27/17 04:00: White Blood Count 6.5, Red Blood Count 3.36L, Hemoglobin 8.9L, Hematocrit 30.4L , Mean Corpuscular Volume 90, Mean Corpuscular Hemoglobin 26.5L, Mean Corpuscular Hemoglobin Concent 29.3L, Red Cell Distribution Width 24.4H, Platelet Count 143L, Mean Platelet Volume 5.5L, Neutrophils (%) (Auto) 78.6H, Lymphocytes (%) (Auto) 10.9L, Monocytes (%) (Auto) 8.7, Eosinophils (%) (Auto) 1.5, Basophils (%) (Auto) 0.3, Sodium Level 141, Potassium Level 3.8, Chloride Level 95L, Carbon Dioxide Level 34H, Anion Gap 12, Blood Urea Nitrogen 76H, Creatinine 4.7H, Estimat Glomerular Filtration Rate , Glucose Level 90, Uric Acid 8.2H, Calcium Level 9.0, Phosphorus Level 6.7H, Magnesium Level 1.8, Total Bilirubin 0.5, Aspartate Amino Transf (AST/SGOT) 13, Alanine Aminotransferase ( ALT/SGPT) 5, Alkaline Phosphatase 48, C-Reactive Protein, Quantitative 1.2H, Pro -B-Type Natriuretic Peptide 48068T, Total Protein 6.6, Albumin 3.5, Globulin 3.1 , Albumin/Globulin Ratio 1.1 Height (Feet): 5 Height (Inches): 4.00 Weight (Pounds): 302 EENT: other - on O2 mask Respiratory/Chest: decreased breath sounds Abdomen: other - obese Objective other PE not changed FATOUMATA BLANK Jan 27, 2017 11:26
--- NOTE | 2017-01-27 11:28 | Diagnostic Imaging Report ---
Indication: Patient requires hemodialysis. Findings: After the indications, procedure, risks, complications, and alternatives of the procedure were explained, written informed consent was obtained. The neck was prepped with alcohol. All elements of maximal sterile barrier technique were followed including usage of a cap, mask, sterile gown, sterile gloves, hand hygiene and a large sterile sheet. 1% lidocaine was used to anesthetize the skin. Sonographic evaluation was performed demonstrating a patent and compressible jugular vein. Access was obtained under real-time ultrasound guidance using an 18 gauge needle and a digital image was saved in archive. An 0.035 wire was then advanced into the vein. Needle exchanged for a dilator. A temporary hemodialysis catheter was then advanced over the wire. Wire was removed. Catheter was secured to the skin using 2-0 Prolene suture. Both ports aspirate and flush easily. The procedure was performed at the bedside. Final position of the catheter tip in the SVC in good position. Impression: Successful placement of right jugular hemodialysis catheter.
[2017-01-27 12:36] LABS: OTHERS PATHOLOGIST COMMENT
[2017-01-27] MEDS ORDERED: NS 275ml ONE (15:21)
--- NOTE | 2017-01-27 16:04 | Internal Med Progress Note ---
Subjective Date of Service: Jan 27, 2017 Physician Name Nick Oates Attending Physician Jaren Jones MD Current Medications Medications (Trade) Dose Ordered Sig/Johan Route PRN Reason Start Time Stop Time Status Last Admin Dose Admin Acetaminophen (Tylenol) 650 mg Q4H PRN ORAL T>100.5 01/22/17 07:00 02/21/17 06:59 01/27/17 15:16 Allopurinol (Allopurinol) 300 mg DAILY ORAL 01/22/17 09:00 02/21/17 08:59 01/27/17 08:46 Chlorhexidine Gluconate (Abigail-Hex 2%) 1 applic BEDTIME TOPIC 01/26/17 21:00 02/25/17 20:59 01/26/17 20:34 Dextrose (Dextrose 50%) STAT PRN IV Hypoglycemia 01/22/17 07:00 02/21/17 06:59 Docusate Sodium (Colace) 100 mg TID ORAL 01/25/17 13:00 02/24/17 12:59 01/27/17 13:56 Haloperidol Lactate (Haldol) 2 mg Q4H PRN IM agitation 01/25/17 13:30 02/24/17 13:29 Heparin Sodium (Porcine) (Heparin 5000 units/ml) 5,000 units EVERY 12 HOURS SUBQ 01/22/17 09:00 02/21/17 08:59 01/26/17 20:37 Insulin Aspart (NovoLOG) BEFORE MEALS AND HS SUBQ 01/22/17 11:30 02/21/17 11:29 01/27/17 11:57 Lansoprazole (Prevacid) 30 mg DAILY ORAL 01/23/17 15:00 02/22/17 14:59 01/27/17 08:46 Nystatin (Nystop Powder) 1 applic Q12HR TOPIC 01/22/17 14:00 02/21/17 13:59 01/27/17 08:50 Ondansetron HCl (Zofran) 4 mg Q6H PRN IVP Nausea & Vomiting 01/22/17 07:00 02/21/17 06:59 Polyethylene Glycol (Miralax) 17 gm DAILYPRN PRN ORAL Constipation 01/22/17 07:00 02/21/17 06:59 Quetiapine Fumarate (SEROquel) 12.5 mg Q6H PRN ORAL Agitation 01/26/17 11:15 02/25/17 11:14 Sevelamer Carbonate (Renvela) 2,400 mg THREE TIMES A DAY ORAL 01/27/17 13:00 02/26/17 12:59 01/27/17 13:56 Temazepam (Restoril) 15 mg HSPRN PRN ORAL Insomnia 01/22/17 21:00 01/29/17 20:59 01/24/17 21:43 Allergies: Coded Allergies: No Known Allergies (Unverified , 01/22/17) ROS Limited/Unobtainable: Yes Subjective 76 YO F admitted with respiratory distress. Now CHF Exacerbation. RADHA. Cover for Int Med-Dr Jones. Worsening renal failure-currently on hemodialysis. Tolerating venturi mask Objective Last Vital Signs Date Time Temp Pulse Resp B/P (MAP) Pulse Ox O2 Delivery O2 Flow Rate FiO2 01/27/17 13:00 Venturi Mask 40 01/27/17 12:05 97.0 85 19 123/62 97 01/27/17 06:34 10.0 Laboratory Tests Test 01/27/17 04:00 White Blood Count 6.5 K/UL (4.8-10.8) Red Blood Count 3.36 M/UL (4.20-5.40) L Hemoglobin 8.9 G/DL (12.0-16.0) L Hematocrit 30.4 % (37.0-47.0) L Mean Corpuscular Volume 90 FL (80-99) Mean Corpuscular Hemoglobin 26.5 PG (27.0-31.0) L Mean Corpuscular Hemoglobin Concent 29.3 G/DL (32.0-36.0) L Red Cell Distribution Width 24.4 % (11.6-14.8) H Platelet Count 143 K/UL (150-450) L Mean Platelet Volume 5.5 FL (6.5-10.1) L Neutrophils (%) (Auto) 78.6 % (45.0-75.0) H Lymphocytes (%) (Auto) 10.9 % (20.0-45.0) L Monocytes (%) (Auto) 8.7 % (1.0-10.0) Eosinophils (%) (Auto) 1.5 % (0.0-3.0) Basophils (%) (Auto) 0.3 % (0.0-2.0) Sodium Level 141 mEQ/L (135-145) Potassium Level 3.8 mEQ/L (3.4-4.9) Chloride Level 95 mEQ/L (98-107) L Carbon Dioxide Level 34 mEQ/L (20-30) H Anion Gap 12 (5-15) Blood Urea Nitrogen 76 mg/dL (7-23) H Creatinine 4.7 mg/dL (0.5-0.9) H Estimat Glomerular Filtration Rate mL/min (>60) Glucose Level 90 mg/dL (74-106) Uric Acid 8.2 mg/dL (3.0-7.5) H Calcium Level 9.0 mg/dL (8.6-10.2) Phosphorus Level 6.7 mg/dL (2.5-4.8) H Magnesium Level 1.8 mg/dL (1.7-2.5) Total Bilirubin 0.5 mg/dL (0.0-1.2) Aspartate Amino Transf (AST/SGOT) 13 U/L (5-40) Alanine Aminotransferase (ALT/SGPT) 5 U/L (3-33) Alkaline Phosphatase 48 U/L (35-104) C-Reactive Protein, Quantitative 1.2 mg/dL (< 0.5) H Pro-B-Type Natriuretic Peptide 71827 pg/mL (0-450) H Total Protein 6.6 g/dL (6.6-8.7) Albumin 3.5 g/dL (3.5-5.2) Globulin 3.1 g/dL Albumin/Globulin Ratio 1.1 (1.0-2.7) Intake and Output 01/27/17 01/28/17 19:00 07:00 Output Total 2040 ml Balance -2040 ml Hemodialysis UF 2040 ml # Bowel Movements 1 Objective General Appearance: alert, moderate distress, obese EENT: PERRL/EOMI, normal ENT inspection Neck: non-tender, normal alignment, supple Cardiovascular: normal peripheral pulses, normal rate, regular rhythm, no gallop/murmur, no JVD Respiratory/Chest: venturi mask; respiratory distress, crackles/rales, rhonchi - bilaterally, expiratory wheezing Abdomen: normal bowel sounds, non tender, soft, no organomegaly, no mass Extremities: normal range of motion 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 See cardiology note. (2) Renal failure Assessment & Plan: Worsening. See nephrology note- hemodialysis on 01/27/17. (3) Respiratory distress Assessment & Plan: Due to CHF. See pulm note. See cardiology consult-Dr Boone. Continue IV lasix (4) Morbid obesity (5) Congestive heart failure Assessment & Plan: LVEF=65-70%. Cont IV lasix. See cardiology consult. (6) Diabetes mellitus Assessment & Plan: Continue novolog sliding scale. Status: not improved NICK OATES Jan 27, 2017 16:04
--- NOTE | 2017-01-27 20:31 | Cardiology Progress Note ---
Assessment/Plan Assessment/Plan 1. Congestive heart failure with preserved left ventricular systolic function. 2. Right heart failure. 3. Pulmonary hypertension. 4. Severe tricuspid regurgitation. 5. Permanent atrial fibrillation. 6. Moderate tricuspid regurgitation. 7. Chronic renal insufficiency. 8. Anemia. 9. Urinary tract infection. 10. Obesity. 11. History of colon cancer. 12. Diabetes mellitus. s/p dialysis fells better to contieneu tele afib vr is fine oxygenating adequately on face mask is not on anticoagulation because of recent gastrointestinal bleeding requiring blood transfusions Subjective Cardiovascular: Denies: chest pain Respiratory: Reports: shortness of breath - is better with dialys Gastrointestinal/Abdominal: Denies: abdominal pain Genitourinary: Denies: burning Objective Last 24 Hour Vital Signs Date Time Temp Pulse Resp B/P (MAP) Pulse Ox O2 Delivery O2 Flow Rate FiO2 01/27/17 19:11 94 Venturi Mask 10.0 45 01/27/17 19:11 Venturi Mask 10.0 45 01/27/17 19:10 86 19 Venturi Mask 10.0 45 01/27/17 16:18 97.8 80 18 139/58 96 Non-Rebreather 45 01/27/17 16:00 77 01/27/17 13:00 Venturi Mask 40 01/27/17 12:05 97.0 85 19 123/62 97 Non-Rebreather 45 01/27/17 11:32 81 01/27/17 09:55 Venturi Mask 40 01/27/17 08:38 79 01/27/17 08:00 97.5 79 21 132/70 97 Non-Rebreather 45 01/27/17 06:34 Venturi Mask 10.0 45 01/27/17 06:34 76 19 Venturi Mask 10.0 45 01/27/17 06:34 95 Venturi Mask 10.0 45 01/27/17 04:00 97.5 80 18 120/66 99 Non-Rebreather 100 01/27/17 04:00 40 01/27/17 04:00 81 01/27/17 00:00 96.8 85 19 126/61 100 Non-Rebreather 100 01/27/17 00:00 40 01/27/17 00:00 74 General Appearance: no apparent distress, alert, obese, patient on isolation Neck: JVD Cardiovascular: irregularly irregular Respiratory/Chest: lungs clear - anter Abdomen: normal bowel sounds, non tender, soft Extremities: moderate edema Intake and Output 01/27/17 01/28/17 19:00 07:00 Output Total 2190 ml Balance -2190 ml Output Urine Total 150 ml Hemodialysis UF 2040 ml # Bowel Movements 2 Laboratory Tests Test 01/27/17 04:00 White Blood Count 6.5 K/UL (4.8-10.8) Red Blood Count 3.36 M/UL (4.20-5.40) L Hemoglobin 8.9 G/DL (12.0-16.0) L Hematocrit 30.4 % (37.0-47.0) L Mean Corpuscular Volume 90 FL (80-99) Mean Corpuscular Hemoglobin 26.5 PG (27.0-31.0) L Mean Corpuscular Hemoglobin Concent 29.3 G/DL (32.0-36.0) L Red Cell Distribution Width 24.4 % (11.6-14.8) H Platelet Count 143 K/UL (150-450) L Mean Platelet Volume 5.5 FL (6.5-10.1) L Neutrophils (%) (Auto) 78.6 % (45.0-75.0) H Lymphocytes (%) (Auto) 10.9 % (20.0-45.0) L Monocytes (%) (Auto) 8.7 % (1.0-10.0) Eosinophils (%) (Auto) 1.5 % (0.0-3.0) Basophils (%) (Auto) 0.3 % (0.0-2.0) Sodium Level 141 mEQ/L (135-145) Potassium Level 3.8 mEQ/L (3.4-4.9) Chloride Level 95 mEQ/L (98-107) L Carbon Dioxide Level 34 mEQ/L (20-30) H Anion Gap 12 (5-15) Blood Urea Nitrogen 76 mg/dL (7-23) H Creatinine 4.7 mg/dL (0.5-0.9) H Estimat Glomerular Filtration Rate mL/min (>60) Glucose Level 90 mg/dL (74-106) Uric Acid 8.2 mg/dL (3.0-7.5) H Calcium Level 9.0 mg/dL (8.6-10.2) Phosphorus Level 6.7 mg/dL (2.5-4.8) H Magnesium Level 1.8 mg/dL (1.7-2.5) Total Bilirubin 0.5 mg/dL (0.0-1.2) Aspartate Amino Transf (AST/SGOT) 13 U/L (5-40) Alanine Aminotransferase (ALT/SGPT) 5 U/L (3-33) Alkaline Phosphatase 48 U/L (35-104) C-Reactive Protein, Quantitative 1.2 mg/dL (< 0.5) H Pro-B-Type Natriuretic Peptide 88468 pg/mL (0-450) H Total Protein 6.6 g/dL (6.6-8.7) Albumin 3.5 g/dL (3.5-5.2) Globulin 3.1 g/dL Albumin/Globulin Ratio 1.1 (1.0-2.7) JULIO MUNOZ Jan 27, 2017 20:31
[2017-01-27] MEDS: Dyna-Hex 2% Top Sol 2oz TOPIC SCH (21:18)
[2017-01-28 00:11] VITALS: BP 129/70
[2017-01-28 04:00] VITALS: BP 133/73
[2017-01-28 05:38] LABS: BASOPHILS % (AUTO) 0.3 % (0.0-2.0); EOSINOPHILS % (AUTO) 1.5 % (0.0-3.0); LYMPHOCYTES % (AUTO) 9.8 % (20.0-45.0); MEAN CORPUSCULAR HEMOGLOBIN 25.7 PG (27.0-31.0); MEAN CORPUSCULAR HGB CONC 28.3 G/DL (32.0-36.0); MEAN CORPUSCULAR VOLUME 91 FL (80-99); MEAN PLATELET VOLUME 6.3 FL (6.5-10.1); MONOCYTES % (AUTO) 7.8 % (1.0-10.0); NEUTROPHILS % (AUTO) 80.6 % (45.0-75.0); PLATELET COUNT 134 K/UL (150-450); RED CELL DISTRIBUTION WIDTH 24.4 % (11.6-14.8); WHITE BLOOD COUNT 7.2 K/UL (4.8-10.8)
[2017-01-28] MEDS: NovoLOG Insulin Flexpen SUBQ SCH ×5 (05:44→21:00)
[2017-01-28 07:07] LABS: CRP QUANT 1.4 mg/dL (< 0.5); MAGNESIUM 1.8 mg/dL (1.7-2.5); PHOSPHORUS 4.7 mg/dL (2.5-4.8); URIC ACID 6.3 mg/dL (3.0-7.5)
[2017-01-28 07:11] LABS: ALANINE AMINOTRANSFERASE 5 U/L (3-33); ALBUMIN/GLOBULIN RATIO 1.1 (1.0-2.7); ANION GAP 10 (5-15); ASPARTATE AMINO TRANSFERASE 14 U/L (5-40); CALCIUM 8.7 mg/dL (8.6-10.2); CARBON DIOXIDE 37 mEQ/L (20-30); CHLORIDE 97 mEQ/L (98-107); CREATININE 3.5 mg/dL (0.5-0.9); HEMOLYSIS 0; POTASSIUM 3.4 mEQ/L (3.4-4.9); SODIUM 144 mEQ/L (135-145); TOTAL PROTEIN 6.3 g/dL (6.6-8.7)
[2017-01-28 08:00] VITALS: BP 127/66
[2017-01-28] MEDS: Docusate 100mg cap ORAL SCH ×3 (08:57→17:43)
[2017-01-28] MEDS: Nystatin Powder 100,000 units/gm 15gm TOPIC SCH ×2 (08:58→21:08)
[2017-01-28] MEDS: Heparin 5000 units/ml inj SUBQ SCH ×2 (08:58→21:00)
--- NOTE | 2017-01-28 10:51 | Diagnostic Imaging Report ---
Indication: Dyspnea Comparison: January 24, 2017 A single view chest radiograph was obtained. Findings: Similar findings demonstrated with prominent pulmonary vascularity/cephalization and cardiomegaly. There is a right jugular Zachary catheter in good position. Bones are osteopenic. Impression: Interstitial edema/CHF. Right Zachray catheter in good position
[2017-01-28 12:00] VITALS: BP 126/58
--- NOTE | 2017-01-28 13:18 | Pulmonology Progress Note ---
Assessment/Plan Problems: (1) Respiratory distress (2) Congestive heart failure (3) Morbid obesity (4) Diabetes mellitus (5) TALITA (obstructive sleep apnea) Assessment/Plan doing better cxr better from today check echo and renal US check sputum titrate fio2 started on HD t Subjective ROS Limited/Unobtainable: No Constitutional: Reports: no symptoms HEENT: Repors: no symptoms Respiratory: Reports: no symptoms Allergies: Coded Allergies: No Known Allergies (Unverified , 01/22/17) Objective Last 24 Hour Vital Signs Date Time Temp Pulse Resp B/P (MAP) Pulse Ox O2 Delivery O2 Flow Rate FiO2 01/28/17 12:00 78 01/28/17 08:00 96.1 81 19 127/66 96 Venturi Mask 45 01/28/17 08:00 75 01/28/17 07:21 Venturi Mask 10.0 45 01/28/17 07:21 95 Venturi Mask 10.0 45 01/28/17 07:19 81 18 Venturi Mask 10.0 45 01/28/17 04:00 98.0 82 20 133/73 96 Venturi Mask 01/28/17 04:00 80 01/28/17 00:11 98.2 85 24 129/70 95 Venturi Mask 01/28/17 00:00 87 01/27/17 20:30 97.8 83 24 143/59 93 Venturi Mask 01/27/17 20:00 97.8 83 22 143/62 96 Non-Rebreather 45 01/27/17 20:00 86 01/27/17 19:11 94 Venturi Mask 10.0 45 01/27/17 19:11 Venturi Mask 10.0 45 01/27/17 19:10 86 19 Venturi Mask 10.0 45 01/27/17 16:18 97.8 80 18 139/58 96 Non-Rebreather 45 01/27/17 16:00 77 General Appearance: WD/WN HEENT: normocephalic, atraumatic Respiratory/Chest: chest wall non-tender, lungs clear Cardiovascular: normal rate Abdomen: normal bowel sounds, soft, non tender Skin: no rash, no ulcers 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: 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 grossly normal, no motor/sensory deficits Lymphatic: no neck adenopathy Laboratory Tests 01/28/17 04:00: White Blood Count 7.2, Red Blood Count 3.30L, Hemoglobin 8.5L, Hematocrit 30.0L , Mean Corpuscular Volume 91, Mean Corpuscular Hemoglobin 25.7L, Mean Corpuscular Hemoglobin Concent 28.3L, Red Cell Distribution Width 24.4H, Platelet Count 134L, Mean Platelet Volume 6.3L, Neutrophils (%) (Auto) 80.6H, Lymphocytes (%) (Auto) 9.8L, Monocytes (%) (Auto) 7.8, Eosinophils (%) (Auto) 1.5, Basophils (%) (Auto) 0.3, Sodium Level 144, Potassium Level 3.4, Chloride Level 97L, Carbon Dioxide Level 37H, Anion Gap 10, Blood Urea Nitrogen 53H, Creatinine 3.5H, Estimat Glomerular Filtration Rate , Glucose Level 88, Uric Acid 6.3, Calcium Level 8.7, Phosphorus Level 4.7, Magnesium Level 1.8, Total Bilirubin 0.5, Aspartate Amino Transf (AST/SGOT) 14, Alanine Aminotransferase ( ALT/SGPT) 5, Alkaline Phosphatase 51, C-Reactive Protein, Quantitative 1.4H, Pro -B-Type Natriuretic Peptide 86108D, Total Protein 6.3L, Albumin 3.4L, Globulin 2.9, Albumin/Globulin Ratio 1.1 Current Medications Medications (Trade) Dose Ordered Sig/Johan Route PRN Reason Start Time Stop Time Status Last Admin Dose Admin Acetaminophen (Tylenol) 650 mg Q4H PRN ORAL T>100.5 01/22/17 07:00 02/21/17 06:59 01/27/17 15:16 Allopurinol (Allopurinol) 300 mg DAILY ORAL 01/22/17 09:00 02/21/17 08:59 01/28/17 08:57 Chlorhexidine Gluconate (Abigail-Hex 2%) 1 applic BEDTIME TOPIC 01/26/17 21:00 02/25/17 20:59 01/27/17 21:18 Dextrose (Dextrose 50%) STAT PRN IV Hypoglycemia 01/22/17 07:00 02/21/17 06:59 Docusate Sodium (Colace) 100 mg TID ORAL 01/25/17 13:00 02/24/17 12:59 01/28/17 12:01 Haloperidol Lactate (Haldol) 2 mg Q4H PRN IM agitation 01/25/17 13:30 02/24/17 13:29 Heparin Sodium (Porcine) (Heparin 5000 units/ml) 5,000 units EVERY 12 HOURS SUBQ 01/22/17 09:00 02/21/17 08:59 01/27/17 21:21 Insulin Aspart (NovoLOG) BEFORE MEALS AND HS SUBQ 01/22/17 11:30 02/21/17 11:29 01/28/17 11:42 Lansoprazole (Prevacid) 30 mg DAILY ORAL 01/23/17 15:00 02/22/17 14:59 01/28/17 08:56 Nystatin (Nystop Powder) 1 applic Q12HR TOPIC 01/22/17 14:00 02/21/17 13:59 01/28/17 08:58 Ondansetron HCl (Zofran) 4 mg Q6H PRN IVP Nausea & Vomiting 01/22/17 07:00 02/21/17 06:59 Polyethylene Glycol (Miralax) 17 gm DAILYPRN PRN ORAL Constipation 01/22/17 07:00 02/21/17 06:59 Quetiapine Fumarate (SEROquel) 12.5 mg Q6H PRN ORAL Agitation 01/26/17 11:15 02/25/17 11:14 Sevelamer Carbonate (Renvela) 2,400 mg THREE TIMES A DAY ORAL 01/27/17 13:00 02/26/17 12:59 01/28/17 12:01 Temazepam (Restoril) 15 mg HSPRN PRN ORAL Insomnia 01/22/17 21:00 01/29/17 20:59 01/24/17 21:43 LINDY JORDAN Jan 28, 2017 13:18
--- NOTE | 2017-01-28 13:28 | General Progress Note ---
Assessment/Plan Status: unchanged Assessment/Plan Renal failure, likely chronic with superimposed acute ASSESSMENT: This is a 76-year-old white female with: -. Shortness of breath. Respiratory failure, Hypoxia -. Acute congestive heart failure. -. Diabetes type 2. -. Atrial fibrillation. -. Congestive heart failure. Right heart failure -. Morbid obesity. -. History of colon cancer. -. TALITA -. Anemia plan: HD- again in am max UF 24 h urine CrCl 6 mag and K supplement as needed Optimize cardiac and pulmonary status- Monitor renal parameters avoid Nephrotoxics Urine studies 2D Echo- reviewed Right cardiac chamber sizes are severely enlarged.RV hypokinesis Kidney DEBI, unremarkable gastric coverage anemia nguyen stool softners long discussion with Zion Perez the brother 01/25/17 Dialysis discussed,.will wait another day and check Cr level Subjective ROS Limited/Unobtainable: No Constitutional: Reports: malaise, weakness Allergies: Coded Allergies: No Known Allergies (Unverified , 01/22/17) Objective Last 24 Hour Vital Signs Date Time Temp Pulse Resp B/P (MAP) Pulse Ox O2 Delivery O2 Flow Rate FiO2 01/28/17 12:00 78 01/28/17 08:00 96.1 81 19 127/66 96 Venturi Mask 45 01/28/17 08:00 75 01/28/17 07:21 Venturi Mask 10.0 45 01/28/17 07:21 95 Venturi Mask 10.0 45 01/28/17 07:19 81 18 Venturi Mask 10.0 45 01/28/17 04:00 98.0 82 20 133/73 96 Venturi Mask 01/28/17 04:00 80 01/28/17 00:11 98.2 85 24 129/70 95 Venturi Mask 01/28/17 00:00 87 01/27/17 20:30 97.8 83 24 143/59 93 Venturi Mask 01/27/17 20:00 97.8 83 22 143/62 96 Non-Rebreather 45 01/27/17 20:00 86 01/27/17 19:11 94 Venturi Mask 10.0 45 01/27/17 19:11 Venturi Mask 10.0 45 01/27/17 19:10 86 19 Venturi Mask 10.0 45 01/27/17 16:18 97.8 80 18 139/58 96 Non-Rebreather 45 01/27/17 16:00 77 Laboratory Tests 01/28/17 04:00: White Blood Count 7.2, Red Blood Count 3.30L, Hemoglobin 8.5L, Hematocrit 30.0L , Mean Corpuscular Volume 91, Mean Corpuscular Hemoglobin 25.7L, Mean Corpuscular Hemoglobin Concent 28.3L, Red Cell Distribution Width 24.4H, Platelet Count 134L, Mean Platelet Volume 6.3L, Neutrophils (%) (Auto) 80.6H, Lymphocytes (%) (Auto) 9.8L, Monocytes (%) (Auto) 7.8, Eosinophils (%) (Auto) 1.5, Basophils (%) (Auto) 0.3, Sodium Level 144, Potassium Level 3.4, Chloride Level 97L, Carbon Dioxide Level 37H, Anion Gap 10, Blood Urea Nitrogen 53H, Creatinine 3.5H, Estimat Glomerular Filtration Rate , Glucose Level 88, Uric Acid 6.3, Calcium Level 8.7, Phosphorus Level 4.7, Magnesium Level 1.8, Total Bilirubin 0.5, Aspartate Amino Transf (AST/SGOT) 14, Alanine Aminotransferase ( ALT/SGPT) 5, Alkaline Phosphatase 51, C-Reactive Protein, Quantitative 1.4H, Pro -B-Type Natriuretic Peptide 12140X, Total Protein 6.3L, Albumin 3.4L, Globulin 2.9, Albumin/Globulin Ratio 1.1 Height (Feet): 5 Height (Inches): 4.00 Weight (Pounds): 302 General Appearance: no apparent distress Cardiovascular: normal rate Respiratory/Chest: decreased breath sounds Abdomen: soft Objective other PE not changed FATOUMATA BLANK Jan 28, 2017 13:28
[2017-01-28 16:14] VITALS: BP 128/53
--- NOTE | 2017-01-28 16:34 | Internal Med Progress Note ---
Subjective Physician Name Jaren Jones Attending Physician Jaren Jones MD Current Medications Medications (Trade) Dose Ordered Sig/Johan Route PRN Reason Start Time Stop Time Status Last Admin Dose Admin Acetaminophen (Tylenol) 650 mg Q4H PRN ORAL T>100.5 01/22/17 07:00 02/21/17 06:59 01/27/17 15:16 Allopurinol (Allopurinol) 300 mg DAILY ORAL 01/22/17 09:00 02/21/17 08:59 01/28/17 08:57 Chlorhexidine Gluconate (Abigail-Hex 2%) 1 applic BEDTIME TOPIC 01/26/17 21:00 02/25/17 20:59 01/27/17 21:18 Dextrose (Dextrose 50%) STAT PRN IV Hypoglycemia 01/22/17 07:00 02/21/17 06:59 Docusate Sodium (Colace) 100 mg TID ORAL 01/25/17 13:00 02/24/17 12:59 01/28/17 12:01 Haloperidol Lactate (Haldol) 2 mg Q4H PRN IM agitation 01/25/17 13:30 02/24/17 13:29 Heparin Sodium (Porcine) (Heparin 5000 units/ml) 5,000 units EVERY 12 HOURS SUBQ 01/22/17 09:00 02/21/17 08:59 01/27/17 21:21 Insulin Aspart (NovoLOG) BEFORE MEALS AND HS SUBQ 01/22/17 11:30 02/21/17 11:29 01/28/17 11:42 Lansoprazole (Prevacid) 30 mg DAILY ORAL 01/23/17 15:00 02/22/17 14:59 01/28/17 08:56 Nystatin (Nystop Powder) 1 applic Q12HR TOPIC 01/22/17 14:00 02/21/17 13:59 01/28/17 08:58 Ondansetron HCl (Zofran) 4 mg Q6H PRN IVP Nausea & Vomiting 01/22/17 07:00 02/21/17 06:59 Polyethylene Glycol (Miralax) 17 gm DAILYPRN PRN ORAL Constipation 01/22/17 07:00 02/21/17 06:59 Quetiapine Fumarate (SEROquel) 12.5 mg Q6H PRN ORAL Agitation 01/26/17 11:15 02/25/17 11:14 Sevelamer Carbonate (Renvela) 2,400 mg THREE TIMES A DAY ORAL 01/27/17 13:00 02/26/17 12:59 01/28/17 12:01 Temazepam (Restoril) 15 mg HSPRN PRN ORAL Insomnia 01/22/17 21:00 01/29/17 20:59 01/24/17 21:43 Allergies: Coded Allergies: No Known Allergies (Unverified , 01/22/17) Subjective awake, alert, responsive, NAD, feeling tired. Objective Last Vital Signs Date Time Temp Pulse Resp B/P (MAP) Pulse Ox O2 Delivery O2 Flow Rate FiO2 01/28/17 16:14 97.2 82 19 128/53 95 Venturi Mask 45 01/28/17 07:21 10.0 Laboratory Tests Test 01/28/17 04:00 White Blood Count 7.2 K/UL (4.8-10.8) Red Blood Count 3.30 M/UL (4.20-5.40) L Hemoglobin 8.5 G/DL (12.0-16.0) L Hematocrit 30.0 % (37.0-47.0) L Mean Corpuscular Volume 91 FL (80-99) Mean Corpuscular Hemoglobin 25.7 PG (27.0-31.0) L Mean Corpuscular Hemoglobin Concent 28.3 G/DL (32.0-36.0) L Red Cell Distribution Width 24.4 % (11.6-14.8) H Platelet Count 134 K/UL (150-450) L Mean Platelet Volume 6.3 FL (6.5-10.1) L Neutrophils (%) (Auto) 80.6 % (45.0-75.0) H Lymphocytes (%) (Auto) 9.8 % (20.0-45.0) L Monocytes (%) (Auto) 7.8 % (1.0-10.0) Eosinophils (%) (Auto) 1.5 % (0.0-3.0) Basophils (%) (Auto) 0.3 % (0.0-2.0) Sodium Level 144 mEQ/L (135-145) Potassium Level 3.4 mEQ/L (3.4-4.9) Chloride Level 97 mEQ/L (98-107) L Carbon Dioxide Level 37 mEQ/L (20-30) H Anion Gap 10 (5-15) Blood Urea Nitrogen 53 mg/dL (7-23) H Creatinine 3.5 mg/dL (0.5-0.9) H Estimat Glomerular Filtration Rate mL/min (>60) Glucose Level 88 mg/dL (74-106) Uric Acid 6.3 mg/dL (3.0-7.5) Calcium Level 8.7 mg/dL (8.6-10.2) Phosphorus Level 4.7 mg/dL (2.5-4.8) Magnesium Level 1.8 mg/dL (1.7-2.5) Total Bilirubin 0.5 mg/dL (0.0-1.2) Aspartate Amino Transf (AST/SGOT) 14 U/L (5-40) Alanine Aminotransferase (ALT/SGPT) 5 U/L (3-33) Alkaline Phosphatase 51 U/L (35-104) C-Reactive Protein, Quantitative 1.4 mg/dL (< 0.5) H Pro-B-Type Natriuretic Peptide 72790 pg/mL (0-450) H Total Protein 6.3 g/dL (6.6-8.7) L Albumin 3.4 g/dL (3.5-5.2) L Globulin 2.9 g/dL Albumin/Globulin Ratio 1.1 (1.0-2.7) Objective General: No acute distress, awake and alert HEENT: NCAT, sclera anicteric, PERRL, EOMI. Neck: Supple,Right IJ dialysis cath. Lungs: Fair inspiratory effort,no Wheeze or Rales. Heart: Regular rate and rhythm, normal S1/S2, no murmurs Abdomen: soft, nontender, nondistended. morbid obesity. Extremities: No Cyanosis , clubbing or edema. Neuro: A&O x 3, Able to move all extremities slowly Assessment/Plan Assessment/Plan Congestive heart failure with preserved left ventricular systolic function. Right heart failure. Pulmonary hypertension. Severe tricuspid regurgitation. Permanent atrial fibrillation. Moderate tricuspid regurgitation. Shortness of breath. Respiratory failure, Hypoxia Diabetes type 2. Atrial fibrillation. Morbid obesity. History of colon cancer. TALITA Anemia of CKD JIMENEZ on CKD on HD Plan: consider transfer to [facility] Monitor labs and culture Hemodialysis F/U with Dr. Worthington recommendations Code status: DNR heparin SQ Jaren Jones MD Jan 28, 2017 16:34
--- NOTE | 2017-01-28 18:46 | Infectious Diseases Prog Note ---
Assessment/Plan Assessment/Plan Abx: Vanco/Zosyn x1 01/22 Assesment: SOB- 2ry to CHF exacerbation and mild hypercapnea Pyuria/ ESBL bacteriuria -u/a WBC too many to count, nit neg, leuk +3, Ucx >100K E.coli ESBL (S. Erta, cipro, nitrofurantoin, bactrim) -Bcx Neg Afebrile, no leukocytosis JIMENEZ on CKD CKD, CHF, Colon Cancer s/p resection 1999 and 2012, s/p chemo and radiation, DM2 , morbid obesity, Afib, non-ambulatory, encephalopathy/dementia Plan: -Continue to monitor off abx,unless febrile, leukocytosis or HD instability -monitor CBC/BMP, temperatures -Aspiration precautions Thank you for this consultation. WIll continue to follow along with you. Discussed with RN. Subjective Allergies: Coded Allergies: No Known Allergies (Unverified , 01/22/17) Subjective remains afebrile off abx no leukocytosis bcx neg Objective Vital Signs Last 24 Hour Vital Signs Date Time Temp Pulse Resp B/P (MAP) Pulse Ox O2 Delivery O2 Flow Rate FiO2 01/28/17 16:14 97.2 82 19 128/53 95 Venturi Mask 45 01/28/17 16:00 80 01/28/17 12:00 97.2 73 20 126/58 95 Venturi Mask 95 01/28/17 12:00 78 01/28/17 08:00 96.1 81 19 127/66 96 Venturi Mask 45 01/28/17 08:00 75 01/28/17 07:21 Venturi Mask 10.0 45 01/28/17 07:21 95 Venturi Mask 10.0 45 01/28/17 07:19 81 18 Venturi Mask 10.0 45 01/28/17 04:00 98.0 82 20 133/73 96 Venturi Mask 01/28/17 04:00 80 01/28/17 00:11 98.2 85 24 129/70 95 Venturi Mask 01/28/17 00:00 87 01/27/17 20:30 97.8 83 24 143/59 93 Venturi Mask 01/27/17 20:00 97.8 83 22 143/62 96 Non-Rebreather 45 01/27/17 20:00 86 01/27/17 19:11 94 Venturi Mask 10.0 45 10/5/17 19:11 Venturi Mask 10.0 45 01/27/17 19:10 86 19 Venturi Mask 10.0 45 Height (Feet): 5 Height (Inches): 4.00 Weight (Pounds): 302 Objective General: The patient is a well-developed, well-nourished, obese, lethargic female, in no apparent distress. HEENT: Eyes, pupils are equal and responsive to light and accommodation.Extraocular movements are intact. NECK: Supple without lymphadenopathy. Chest: Decreased breath sounds in the bilateral bases with crackles, otherwise clear to auscultation without wheezes or rales. Cardiovascular: Regular rate. S1 and S2 are normal without murmurs, rubs, or gallops. Abdomen: Soft, nontender, and nondistended. Positive bowel sounds. No evidence of hepatosplenomegaly. Currently, no rebound or guarding noted. EXTREMITIES: Negative for clubbing, cyanosis, or edema Laboratory Tests Test 01/28/17 04:00 White Blood Count 7.2 K/UL (4.8-10.8) Red Blood Count 3.30 M/UL (4.20-5.40) L Hemoglobin 8.5 G/DL (12.0-16.0) L Hematocrit 30.0 % (37.0-47.0) L Mean Corpuscular Volume 91 FL (80-99) Mean Corpuscular Hemoglobin 25.7 PG (27.0-31.0) L Mean Corpuscular Hemoglobin Concent 28.3 G/DL (32.0-36.0) L Red Cell Distribution Width 24.4 % (11.6-14.8) H Platelet Count 134 K/UL (150-450) L Mean Platelet Volume 6.3 FL (6.5-10.1) L Neutrophils (%) (Auto) 80.6 % (45.0-75.0) H Lymphocytes (%) (Auto) 9.8 % (20.0-45.0) L Monocytes (%) (Auto) 7.8 % (1.0-10.0) Eosinophils (%) (Auto) 1.5 % (0.0-3.0) Basophils (%) (Auto) 0.3 % (0.0-2.0) Sodium Level 144 mEQ/L (135-145) Potassium Level 3.4 mEQ/L (3.4-4.9) Chloride Level 97 mEQ/L (98-107) L Carbon Dioxide Level 37 mEQ/L (20-30) H Anion Gap 10 (5-15) Blood Urea Nitrogen 53 mg/dL (7-23) H Creatinine 3.5 mg/dL (0.5-0.9) H Estimat Glomerular Filtration Rate mL/min (>60) Glucose Level 88 mg/dL (74-106) Uric Acid 6.3 mg/dL (3.0-7.5) Calcium Level 8.7 mg/dL (8.6-10.2) Phosphorus Level 4.7 mg/dL (2.5-4.8) Magnesium Level 1.8 mg/dL (1.7-2.5) Total Bilirubin 0.5 mg/dL (0.0-1.2) Aspartate Amino Transf (AST/SGOT) 14 U/L (5-40) Alanine Aminotransferase (ALT/SGPT) 5 U/L (3-33) Alkaline Phosphatase 51 U/L (35-104) C-Reactive Protein, Quantitative 1.4 mg/dL (< 0.5) H Pro-B-Type Natriuretic Peptide 89327 pg/mL (0-450) H Total Protein 6.3 g/dL (6.6-8.7) L Albumin 3.4 g/dL (3.5-5.2) L Globulin 2.9 g/dL Albumin/Globulin Ratio 1.1 (1.0-2.7) Current Medications Medications (Trade) Dose Ordered Sig/Johan Route PRN Reason Start Time Stop Time Status Last Admin Dose Admin Acetaminophen (Tylenol) 650 mg Q4H PRN ORAL T>100.5 01/22/17 07:00 02/21/17 06:59 01/27/17 15:16 Allopurinol (Allopurinol) 300 mg DAILY ORAL 01/22/17 09:00 02/21/17 08:59 01/28/17 08:57 Chlorhexidine Gluconate (Abigail-Hex 2%) 1 applic BEDTIME TOPIC 01/26/17 21:00 02/25/17 20:59 01/27/17 21:18 Dextrose (Dextrose 50%) STAT PRN IV Hypoglycemia 01/22/17 07:00 02/21/17 06:59 Docusate Sodium (Colace) 100 mg TID ORAL 01/25/17 13:00 02/24/17 12:59 01/28/17 17:43 Haloperidol Lactate (Haldol) 2 mg Q4H PRN IM agitation 01/25/17 13:30 02/24/17 13:29 Heparin Sodium (Porcine) (Heparin 5000 units/ml) 5,000 units EVERY 12 HOURS SUBQ 01/22/17 09:00 02/21/17 08:59 01/27/17 21:21 Insulin Aspart (NovoLOG) BEFORE MEALS AND HS SUBQ 01/22/17 11:30 02/21/17 11:29 01/28/17 17:46 Lansoprazole (Prevacid) 30 mg DAILY ORAL 01/23/17 15:00 02/22/17 14:59 01/28/17 08:56 Nystatin (Nystop Powder) 1 applic Q12HR TOPIC 01/22/17 14:00 02/21/17 13:59 01/28/17 08:58 Ondansetron HCl (Zofran) 4 mg Q6H PRN IVP Nausea & Vomiting 01/22/17 07:00 02/21/17 06:59 Polyethylene Glycol (Miralax) 17 gm DAILYPRN PRN ORAL Constipation 01/22/17 07:00 02/21/17 06:59 Quetiapine Fumarate (SEROquel) 12.5 mg Q6H PRN ORAL Agitation 01/26/17 11:15 02/25/17 11:14 Sevelamer Carbonate (Renvela) 2,400 mg THREE TIMES A DAY ORAL 01/27/17 13:00 02/26/17 12:59 01/28/17 17:45 Temazepam (Restoril) 15 mg HSPRN PRN ORAL Insomnia 01/22/17 21:00 01/29/17 20:59 01/24/17 21:43 Ai Salinas M.D. Jan 28, 2017 18:46
--- NOTE | 2017-01-28 19:40 | Cardiology Progress Note ---
Assessment/Plan Assessment/Plan 1. Congestive heart failure with preserved left ventricular systolic function. 2. Right heart failure. 3. Pulmonary hypertension. 4. Severe tricuspid regurgitation. 5. Permanent atrial fibrillation. 6. Moderate tricuspid regurgitation. 7. Chronic renal insufficiency. 8. Anemia. 9. Urinary tract infection. 10. Obesity. 11. History of colon cancer. 12. Diabetes mellitus. s/p dialysis fells better to continue tele afib vr is fine oxygenating adequately on face mask is not on anticoagulation because of recent gastrointestinal bleeding requiring blood transfusions d/w rn Subjective Cardiovascular: Denies: chest pain, lightheadedness Respiratory: Reports: shortness of breath Gastrointestinal/Abdominal: Denies: abdominal pain Genitourinary: Denies: burning Objective Last 24 Hour Vital Signs Date Time Temp Pulse Resp B/P (MAP) Pulse Ox O2 Delivery O2 Flow Rate FiO2 01/28/17 16:14 97.2 82 19 128/53 95 Venturi Mask 45 01/28/17 16:00 80 01/28/17 12:00 97.2 73 20 126/58 95 Venturi Mask 95 01/28/17 12:00 78 01/28/17 08:00 96.1 81 19 127/66 96 Venturi Mask 45 01/28/17 08:00 75 01/28/17 07:21 Venturi Mask 10.0 45 01/28/17 07:21 95 Venturi Mask 10.0 45 01/28/17 07:19 81 18 Venturi Mask 10.0 45 01/28/17 04:00 98.0 82 20 133/73 96 Venturi Mask 01/28/17 04:00 80 01/28/17 00:11 98.2 85 24 129/70 95 Venturi Mask 01/28/17 00:00 87 01/27/17 20:30 97.8 83 24 143/59 93 Venturi Mask 01/27/17 20:00 97.8 83 22 143/62 96 Non-Rebreather 45 01/27/17 20:00 86 General Appearance: no apparent distress, alert, obese, patient on isolation Neck: supple Cardiovascular: irregularly irregular Respiratory/Chest: lungs clear - ant Abdomen: normal bowel sounds, soft Extremities: moderate edema Intake and Output 01/28/17 01/29/17 19:00 07:00 Intake Total 100 ml Output Total 150 ml Balance -50 ml Intake Oral 100 ml Output Urine Total 150 ml Laboratory Tests Test 01/28/17 04:00 White Blood Count 7.2 K/UL (4.8-10.8) Red Blood Count 3.30 M/UL (4.20-5.40) L Hemoglobin 8.5 G/DL (12.0-16.0) L Hematocrit 30.0 % (37.0-47.0) L Mean Corpuscular Volume 91 FL (80-99) Mean Corpuscular Hemoglobin 25.7 PG (27.0-31.0) L Mean Corpuscular Hemoglobin Concent 28.3 G/DL (32.0-36.0) L Red Cell Distribution Width 24.4 % (11.6-14.8) H Platelet Count 134 K/UL (150-450) L Mean Platelet Volume 6.3 FL (6.5-10.1) L Neutrophils (%) (Auto) 80.6 % (45.0-75.0) H Lymphocytes (%) (Auto) 9.8 % (20.0-45.0) L Monocytes (%) (Auto) 7.8 % (1.0-10.0) Eosinophils (%) (Auto) 1.5 % (0.0-3.0) Basophils (%) (Auto) 0.3 % (0.0-2.0) Sodium Level 144 mEQ/L (135-145) Potassium Level 3.4 mEQ/L (3.4-4.9) Chloride Level 97 mEQ/L (98-107) L Carbon Dioxide Level 37 mEQ/L (20-30) H Anion Gap 10 (5-15) Blood Urea Nitrogen 53 mg/dL (7-23) H Creatinine 3.5 mg/dL (0.5-0.9) H Estimat Glomerular Filtration Rate mL/min (>60) Glucose Level 88 mg/dL (74-106) Uric Acid 6.3 mg/dL (3.0-7.5) Calcium Level 8.7 mg/dL (8.6-10.2) Phosphorus Level 4.7 mg/dL (2.5-4.8) Magnesium Level 1.8 mg/dL (1.7-2.5) Total Bilirubin 0.5 mg/dL (0.0-1.2) Aspartate Amino Transf (AST/SGOT) 14 U/L (5-40) Alanine Aminotransferase (ALT/SGPT) 5 U/L (3-33) Alkaline Phosphatase 51 U/L (35-104) C-Reactive Protein, Quantitative 1.4 mg/dL (< 0.5) H Pro-B-Type Natriuretic Peptide 46269 pg/mL (0-450) H Total Protein 6.3 g/dL (6.6-8.7) L Albumin 3.4 g/dL (3.5-5.2) L Globulin 2.9 g/dL Albumin/Globulin Ratio 1.1 (1.0-2.7) JULIO MUNOZ Jan 28, 2017 19:40
[2017-01-28 20:00] VITALS: BP 140/71
[2017-01-28] MEDS: Dyna-Hex 2% Top Sol 2oz TOPIC SCH (21:08)
--- NOTE | 2017-01-28 21:45 | Progress Note ---
DATE: 01/28/2017 Subjective: The patient is confused and does not engage during the evaluation. No agitation. Restrain as needed. Mental Status Examination: The patient is confused and disoriented. Mood is neutral to agitation. Affect is flat. Thought process, there is a paucity of thought content. Thought content, no suicidal or homicidal ideation. Cognition is impaired. ASSESSMENT: Encephalopathy. Plan: We will continue current medication. Provide the patient with supportive therapy and reality orientation. Rodrick Null M.D. DR: KELLEN JOB#: [id number] CC:
[2017-01-29 00:36] VITALS: BP 126/71
[2017-01-29 04:00] VITALS: BP 126/57
[2017-01-29 05:01] LABS: BASOPHILS % (AUTO) 0.6 % (0.0-2.0); EOSINOPHILS % (AUTO) 1.4 % (0.0-3.0); LYMPHOCYTES % (AUTO) 9.6 % (20.0-45.0); MEAN CORPUSCULAR HEMOGLOBIN 25.8 PG (27.0-31.0); MEAN CORPUSCULAR HGB CONC 28.2 G/DL (32.0-36.0); MEAN CORPUSCULAR VOLUME 91 FL (80-99); MEAN PLATELET VOLUME 5.6 FL (6.5-10.1); NEUTROPHILS % (AUTO) 78.4 % (45.0-75.0); PLATELET COUNT 132 K/UL (150-450); RED BLOOD COUNT 3.49 M/UL (4.20-5.40); RED CELL DISTRIBUTION WIDTH 24.1 % (11.6-14.8); WHITE BLOOD COUNT 7.4 K/UL (4.8-10.8)
[2017-01-29 05:38] LABS: ALANINE AMINOTRANSFERASE 5 U/L (3-33); ANION GAP 12 (5-15); ASPARTATE AMINO TRANSFERASE 15 U/L (5-40); CARBON DIOXIDE 37 mEQ/L (20-30); CHLORIDE 96 mEQ/L (98-107); CREATININE 3.8 mg/dL (0.5-0.9); HEMOLYSIS 1; MAGNESIUM 1.9 mg/dL (1.7-2.5); PHOSPHORUS 5.1 mg/dL (2.5-4.8); POTASSIUM 3.7 mEQ/L (3.4-4.9); SODIUM 145 mEQ/L (135-145); TOTAL PROTEIN 6.5 g/dL (6.6-8.7)
[2017-01-29] MEDS: NovoLOG Insulin Flexpen SUBQ SCH ×4 (06:30→20:56)
[2017-01-29 08:10] VITALS: BP 148/70
[2017-01-29] MEDS: Heparin 5000 units/ml inj SUBQ SCH ×2 (08:28→20:54)
[2017-01-29] MEDS: Nystatin Powder 100,000 units/gm 15gm TOPIC SCH ×2 (08:28→20:57)
[2017-01-29] MEDS: Docusate 100mg cap ORAL SCH ×3 (08:28→18:00)
--- NOTE | 2017-01-29 09:44 | Infectious Diseases Prog Note ---
Assessment/Plan Assessment/Plan Abx: Vanco/Zosyn x1 01/22 Assesment: SOB- 2ry to CHF exacerbation and mild hypercapnea -CXR 01/28: Interstitial edema/CHF. Pyuria/ ESBL bacteriuria -u/a WBC too many to count, nit neg, leuk +3, Ucx >100K E.coli ESBL (S. Erta, cipro, nitrofurantoin, bactrim) -Bcx Neg Afebrile, no leukocytosis JIMENEZ on CKD CKD, CHF, Colon Cancer s/p resection 1999 and 2012, s/p chemo and radiation, DM2 , morbid obesity, Afib, non-ambulatory, encephalopathy/dementia Plan: -Continue to monitor off abx,unless febrile, leukocytosis or HD instability -monitor CBC/BMP, temperatures -Aspiration precautions Thank you for this consultation. WIll continue to follow along with you. Discussed with RN. Subjective Allergies: Coded Allergies: No Known Allergies (Unverified , 01/22/17) Subjective remains afebrile off abx no leukocytosis bcx neg Objective Vital Signs Last 24 Hour Vital Signs Date Time Temp Pulse Resp B/P (MAP) Pulse Ox O2 Delivery O2 Flow Rate FiO2 01/29/17 08:10 97.4 87 20 148/70 100 Venturi Mask 45 01/29/17 08:00 88 01/29/17 07:49 Venturi Mask 10.0 45 01/29/17 07:49 98 Venturi Mask 10.0 45 01/29/17 07:48 82 18 Venturi Mask 10.0 45 01/29/17 04:00 82 01/29/17 04:00 98.0 80 24 126/57 98 Venturi Mask 55 01/29/17 00:36 98.9 86 22 126/71 97 01/28/17 23:30 87 01/28/17 20:41 Venturi Mask 10.0 45 01/28/17 20:41 96 Venturi Mask 10.0 45 01/28/17 20:40 84 18 Venturi Mask 10.0 45 01/28/17 20:00 98.6 90 24 140/71 97 Venturi Mask 01/28/17 20:00 88 01/28/17 16:14 97.2 82 19 128/53 95 Venturi Mask 45 01/28/17 16:00 80 01/28/17 12:00 97.2 73 20 126/58 95 Venturi Mask 95 01/28/17 12:00 78 Height (Feet): 5 Height (Inches): 4.00 Weight (Pounds): 302 Objective General: The patient is a well-developed, well-nourished, obese, lethargic female, in no apparent distress. HEENT: Eyes, pupils are equal and responsive to light and accommodation.Extraocular movements are intact. NECK: Supple without lymphadenopathy. Chest: Decreased breath sounds in the bilateral bases with crackles, otherwise clear to auscultation without wheezes or rales. Cardiovascular: Regular rate. S1 and S2 are normal without murmurs, rubs, or gallops. Abdomen: Soft, nontender, and nondistended. Positive bowel sounds. No evidence of hepatosplenomegaly. Currently, no rebound or guarding noted. EXTREMITIES: Negative for clubbing, cyanosis, or edema Laboratory Tests Test 01/29/17 03:55 White Blood Count 7.4 K/UL (4.8-10.8) Red Blood Count 3.49 M/UL (4.20-5.40) L Hemoglobin 9.0 G/DL (12.0-16.0) L Hematocrit 31.9 % (37.0-47.0) L Mean Corpuscular Volume 91 FL (80-99) Mean Corpuscular Hemoglobin 25.8 PG (27.0-31.0) L Mean Corpuscular Hemoglobin Concent 28.2 G/DL (32.0-36.0) L Red Cell Distribution Width 24.1 % (11.6-14.8) H Platelet Count 132 K/UL (150-450) L Mean Platelet Volume 5.6 FL (6.5-10.1) L Neutrophils (%) (Auto) 78.4 % (45.0-75.0) H Lymphocytes (%) (Auto) 9.6 % (20.0-45.0) L Monocytes (%) (Auto) 10.0 % (1.0-10.0) Eosinophils (%) (Auto) 1.4 % (0.0-3.0) Basophils (%) (Auto) 0.6 % (0.0-2.0) Sodium Level 145 mEQ/L (135-145) Potassium Level 3.7 mEQ/L (3.4-4.9) Chloride Level 96 mEQ/L (98-107) L Carbon Dioxide Level 37 mEQ/L (20-30) H Anion Gap 12 (5-15) Blood Urea Nitrogen 69 mg/dL (7-23) H Creatinine 3.8 mg/dL (0.5-0.9) H Estimat Glomerular Filtration Rate mL/min (>60) Glucose Level 98 mg/dL (74-106) Calcium Level 9.0 mg/dL (8.6-10.2) Phosphorus Level 5.1 mg/dL (2.5-4.8) H Magnesium Level 1.9 mg/dL (1.7-2.5) Total Bilirubin 0.6 mg/dL (0.0-1.2) Aspartate Amino Transf (AST/SGOT) 15 U/L (5-40) Alanine Aminotransferase (ALT/SGPT) 5 U/L (3-33) Alkaline Phosphatase 50 U/L (35-104) Total Protein 6.5 g/dL (6.6-8.7) L Albumin 3.4 g/dL (3.5-5.2) L Globulin 3.1 g/dL Albumin/Globulin Ratio 1.0 (1.0-2.7) Current Medications Medications (Trade) Dose Ordered Sig/Johan Route PRN Reason Start Time Stop Time Status Last Admin Dose Admin Acetaminophen (Tylenol) 650 mg Q4H PRN ORAL T>100.5 01/22/17 07:00 02/21/17 06:59 01/27/17 15:16 Allopurinol (Allopurinol) 300 mg DAILY ORAL 01/22/17 09:00 02/21/17 08:59 01/29/17 08:28 Chlorhexidine Gluconate (Abigail-Hex 2%) 1 applic BEDTIME TOPIC 01/26/17 21:00 02/25/17 20:59 01/28/17 21:08 Dextrose (Dextrose 50%) STAT PRN IV Hypoglycemia 01/22/17 07:00 02/21/17 06:59 Docusate Sodium (Colace) 100 mg TID ORAL 01/25/17 13:00 02/24/17 12:59 01/29/17 08:28 Haloperidol Lactate (Haldol) 2 mg Q4H PRN IM agitation 01/25/17 13:30 02/24/17 13:29 Heparin Sodium (Porcine) (Heparin 5000 units/ml) 5,000 units EVERY 12 HOURS SUBQ 01/22/17 09:00 02/21/17 08:59 01/27/17 21:21 Insulin Aspart (NovoLOG) BEFORE MEALS AND HS SUBQ 01/22/17 11:30 02/21/17 11:29 01/28/17 17:46 Lansoprazole (Prevacid) 30 mg DAILY ORAL 01/23/17 15:00 02/22/17 14:59 01/29/17 08:28 Nystatin (Nystop Powder) 1 applic Q12HR TOPIC 01/22/17 14:00 02/21/17 13:59 01/29/17 08:28 Ondansetron HCl (Zofran) 4 mg Q6H PRN IVP Nausea & Vomiting 01/22/17 07:00 02/21/17 06:59 Polyethylene Glycol (Miralax) 17 gm DAILYPRN PRN ORAL Constipation 01/22/17 07:00 02/21/17 06:59 Quetiapine Fumarate (SEROquel) 12.5 mg Q6H PRN ORAL Agitation 01/26/17 11:15 02/25/17 11:14 Sevelamer Carbonate (Renvela) 2,400 mg THREE TIMES A DAY ORAL 01/27/17 13:00 02/26/17 12:59 01/29/17 08:28 Temazepam (Restoril) 15 mg HSPRN PRN ORAL Insomnia 01/22/17 21:00 01/29/17 20:59 01/28/17 23:10 Ai Salinas M.D. Jan 29, 2017 09:44
--- NOTE | 2017-01-29 09:55 | General Progress Note ---
Assessment/Plan Status: stable Assessment/Plan Renal failure, likely chronic with superimposed acute ASSESSMENT: This is a 76-year-old white female with: -. Shortness of breath. Respiratory failure, Hypoxia -. Acute congestive heart failure. -. Diabetes type 2. -. Atrial fibrillation. -. Congestive heart failure. Right heart failure -. Morbid obesity. -. History of colon cancer. -. TALITA -. Anemia plan: HD- again today max UF 24 h urine CrCl 6 mag and K supplement as needed Optimize cardiac and pulmonary status- Monitor renal parameters avoid Nephrotoxics Urine studies 2D Echo- reviewed Right cardiac chamber sizes are severely enlarged.RV hypokinesis Kidney DEBI, unremarkable gastric coverage anemia nguyen stool softners long discussion with Zion Perez the brother 01/25/17 Dialysis discussed,.will wait another day and check Cr level Subjective ROS Limited/Unobtainable: No Constitutional: Reports: malaise, weakness Allergies: Coded Allergies: No Known Allergies (Unverified , 01/22/17) Objective Last 24 Hour Vital Signs Date Time Temp Pulse Resp B/P (MAP) Pulse Ox O2 Delivery O2 Flow Rate FiO2 01/29/17 08:10 97.4 87 20 148/70 100 Venturi Mask 45 01/29/17 08:00 88 01/29/17 07:49 Venturi Mask 10.0 45 01/29/17 07:49 98 Venturi Mask 10.0 45 01/29/17 07:48 82 18 Venturi Mask 10.0 45 01/29/17 04:00 82 01/29/17 04:00 98.0 80 24 126/57 98 Venturi Mask 55 01/29/17 00:36 98.9 86 22 126/71 97 01/28/17 23:30 87 01/28/17 20:41 Venturi Mask 10.0 45 01/28/17 20:41 96 Venturi Mask 10.0 45 01/28/17 20:40 84 18 Venturi Mask 10.0 45 01/28/17 20:00 98.6 90 24 140/71 97 Venturi Mask 01/28/17 20:00 88 01/28/17 16:14 97.2 82 19 128/53 95 Venturi Mask 45 01/28/17 16:00 80 01/28/17 12:00 97.2 73 20 126/58 95 Venturi Mask 95 01/28/17 12:00 78 Laboratory Tests 01/29/17 03:55: White Blood Count 7.4, Red Blood Count 3.49L, Hemoglobin 9.0L, Hematocrit 31.9L , Mean Corpuscular Volume 91, Mean Corpuscular Hemoglobin 25.8L, Mean Corpuscular Hemoglobin Concent 28.2L, Red Cell Distribution Width 24.1H, Platelet Count 132L, Mean Platelet Volume 5.6L, Neutrophils (%) (Auto) 78.4H, Lymphocytes (%) (Auto) 9.6L, Monocytes (%) (Auto) 10.0, Eosinophils (%) (Auto) 1.4, Basophils (%) (Auto) 0.6, Sodium Level 145, Potassium Level 3.7, Chloride Level 96L, Carbon Dioxide Level 37H, Anion Gap 12, Blood Urea Nitrogen 69H, Creatinine 3.8H, Estimat Glomerular Filtration Rate , Glucose Level 98, Calcium Level 9.0, Phosphorus Level 5.1H, Magnesium Level 1.9, Total Bilirubin 0.6, Aspartate Amino Transf (AST/SGOT) 15, Alanine Aminotransferase (ALT/SGPT) 5, Alkaline Phosphatase 50, Total Protein 6.5L, Albumin 3.4L, Globulin 3.1, Albumin /Globulin Ratio 1.0 Height (Feet): 5 Height (Inches): 4.00 Weight (Pounds): 302 General Appearance: no apparent distress, lethargic Respiratory/Chest: decreased breath sounds Abdomen: soft Objective other PE not changed FATOUMATA BLANK Jan 29, 2017 09:55
--- NOTE | 2017-01-29 11:18 | Pulmonology Progress Note ---
Assessment/Plan Problems: (1) Respiratory distress (2) Congestive heart failure (3) Morbid obesity (4) Diabetes mellitus (5) TALITA (obstructive sleep apnea) Assessment/Plan still on face mask HD today echo and renal US reviewed check sputum titrate fio2 symptomatic treatment check electrolytes. Subjective ROS Limited/Unobtainable: No Constitutional: Reports: no symptoms HEENT: Repors: no symptoms Respiratory: Reports: no symptoms Allergies: Coded Allergies: No Known Allergies (Unverified , 01/22/17) Objective Last 24 Hour Vital Signs Date Time Temp Pulse Resp B/P (MAP) Pulse Ox O2 Delivery O2 Flow Rate FiO2 01/29/17 08:10 97.4 87 20 148/70 100 Venturi Mask 45 01/29/17 08:00 88 01/29/17 07:49 Venturi Mask 10.0 45 01/29/17 07:49 98 Venturi Mask 10.0 45 01/29/17 07:48 82 18 Venturi Mask 10.0 45 01/29/17 04:00 82 01/29/17 04:00 98.0 80 24 126/57 98 Venturi Mask 55 01/29/17 00:36 98.9 86 22 126/71 97 01/28/17 23:30 87 01/28/17 20:41 Venturi Mask 10.0 45 01/28/17 20:41 96 Venturi Mask 10.0 45 01/28/17 20:40 84 18 Venturi Mask 10.0 45 01/28/17 20:00 98.6 90 24 140/71 97 Venturi Mask 01/28/17 20:00 88 01/28/17 16:14 97.2 82 19 128/53 95 Venturi Mask 45 01/28/17 16:00 80 01/28/17 12:00 97.2 73 20 126/58 95 Venturi Mask 95 01/28/17 12:00 78 General Appearance: WD/WN HEENT: normocephalic, anicteric Respiratory/Chest: chest wall non-tender, lungs clear Cardiovascular: normal peripheral pulses, regular rhythm Abdomen: normal bowel sounds, soft, non tender Genitourinary: normal external genitalia Skin: no rash Laboratory Tests 01/29/17 03:55: White Blood Count 7.4, Red Blood Count 3.49L, Hemoglobin 9.0L, Hematocrit 31.9L , Mean Corpuscular Volume 91, Mean Corpuscular Hemoglobin 25.8L, Mean Corpuscular Hemoglobin Concent 28.2L, Red Cell Distribution Width 24.1H, Platelet Count 132L, Mean Platelet Volume 5.6L, Neutrophils (%) (Auto) 78.4H, Lymphocytes (%) (Auto) 9.6L, Monocytes (%) (Auto) 10.0, Eosinophils (%) (Auto) 1.4, Basophils (%) (Auto) 0.6, Sodium Level 145, Potassium Level 3.7, Chloride Level 96L, Carbon Dioxide Level 37H, Anion Gap 12, Blood Urea Nitrogen 69H, Creatinine 3.8H, Estimat Glomerular Filtration Rate , Glucose Level 98, Calcium Level 9.0, Phosphorus Level 5.1H, Magnesium Level 1.9, Total Bilirubin 0.6, Aspartate Amino Transf (AST/SGOT) 15, Alanine Aminotransferase (ALT/SGPT) 5, Alkaline Phosphatase 50, Total Protein 6.5L, Albumin 3.4L, Globulin 3.1, Albumin /Globulin Ratio 1.0 Current Medications Medications (Trade) Dose Ordered Sig/Johan Route PRN Reason Start Time Stop Time Status Last Admin Dose Admin Acetaminophen (Tylenol) 650 mg Q4H PRN ORAL T>100.5 01/22/17 07:00 02/21/17 06:59 01/27/17 15:16 Allopurinol (Allopurinol) 300 mg DAILY ORAL 01/22/17 09:00 02/21/17 08:59 01/29/17 08:28 Chlorhexidine Gluconate (Abigail-Hex 2%) 1 applic BEDTIME TOPIC 01/26/17 21:00 02/25/17 20:59 01/28/17 21:08 Dextrose (Dextrose 50%) STAT PRN IV Hypoglycemia 01/22/17 07:00 02/21/17 06:59 Docusate Sodium (Colace) 100 mg TID ORAL 01/25/17 13:00 02/24/17 12:59 01/29/17 08:28 Haloperidol Lactate (Haldol) 2 mg Q4H PRN IM agitation 01/25/17 13:30 02/24/17 13:29 Heparin Sodium (Porcine) (Heparin 5000 units/ml) 5,000 units EVERY 12 HOURS SUBQ 01/22/17 09:00 02/21/17 08:59 01/27/17 21:21 Insulin Aspart (NovoLOG) BEFORE MEALS AND HS SUBQ 01/22/17 11:30 02/21/17 11:29 01/28/17 17:46 Lansoprazole (Prevacid) 30 mg DAILY ORAL 01/23/17 15:00 02/22/17 14:59 01/29/17 08:28 Nystatin (Nystop Powder) 1 applic Q12HR TOPIC 01/22/17 14:00 02/21/17 13:59 01/29/17 08:28 Ondansetron HCl (Zofran) 4 mg Q6H PRN IVP Nausea & Vomiting 01/22/17 07:00 02/21/17 06:59 Polyethylene Glycol (Miralax) 17 gm DAILYPRN PRN ORAL Constipation 01/22/17 07:00 02/21/17 06:59 Quetiapine Fumarate (SEROquel) 12.5 mg Q6H PRN ORAL Agitation 01/26/17 11:15 02/25/17 11:14 Sevelamer Carbonate (Renvela) 2,400 mg THREE TIMES A DAY ORAL 01/27/17 13:00 02/26/17 12:59 01/29/17 08:28 Temazepam (Restoril) 15 mg HSPRN PRN ORAL Insomnia 01/22/17 21:00 01/29/17 20:59 01/28/17 23:10 LINDY JORDAN Jan 29, 2017 11:18
--- NOTE | 2017-01-29 11:54 | Internal Med Progress Note ---
Subjective Date of Service: Jan 29, 2017 Physician Name Nick Oates Attending Physician Jaren Jones MD Current Medications Medications (Trade) Dose Ordered Sig/Johan Route PRN Reason Start Time Stop Time Status Last Admin Dose Admin Acetaminophen (Tylenol) 650 mg Q4H PRN ORAL T>100.5 01/22/17 07:00 02/21/17 06:59 01/27/17 15:16 Allopurinol (Allopurinol) 300 mg DAILY ORAL 01/22/17 09:00 02/21/17 08:59 01/29/17 08:28 Chlorhexidine Gluconate (Abigail-Hex 2%) 1 applic BEDTIME TOPIC 01/26/17 21:00 02/25/17 20:59 01/28/17 21:08 Dextrose (Dextrose 50%) STAT PRN IV Hypoglycemia 01/22/17 07:00 02/21/17 06:59 Docusate Sodium (Colace) 100 mg TID ORAL 01/25/17 13:00 02/24/17 12:59 01/29/17 08:28 Haloperidol Lactate (Haldol) 2 mg Q4H PRN IM agitation 01/25/17 13:30 02/24/17 13:29 Heparin Sodium (Porcine) (Heparin 5000 units/ml) 5,000 units EVERY 12 HOURS SUBQ 01/22/17 09:00 02/21/17 08:59 01/27/17 21:21 Insulin Aspart (NovoLOG) BEFORE MEALS AND HS SUBQ 01/22/17 11:30 02/21/17 11:29 01/29/17 11:21 Lansoprazole (Prevacid) 30 mg DAILY ORAL 01/23/17 15:00 02/22/17 14:59 01/29/17 08:28 Nystatin (Nystop Powder) 1 applic Q12HR TOPIC 01/22/17 14:00 02/21/17 13:59 01/29/17 08:28 Ondansetron HCl (Zofran) 4 mg Q6H PRN IVP Nausea & Vomiting 01/22/17 07:00 02/21/17 06:59 Polyethylene Glycol (Miralax) 17 gm DAILYPRN PRN ORAL Constipation 01/22/17 07:00 02/21/17 06:59 Quetiapine Fumarate (SEROquel) 12.5 mg Q6H PRN ORAL Agitation 01/26/17 11:15 02/25/17 11:14 Sevelamer Carbonate (Renvela) 2,400 mg THREE TIMES A DAY ORAL 01/27/17 13:00 02/26/17 12:59 01/29/17 08:28 Temazepam (Restoril) 15 mg HSPRN PRN ORAL Insomnia 01/22/17 21:00 01/29/17 20:59 01/28/17 23:10 Allergies: Coded Allergies: No Known Allergies (Unverified , 01/22/17) ROS Limited/Unobtainable: No Constitutional: Reports: no symptoms HEENT: Reports: no symptoms Cardiovascular: Reports: no symptoms Respiratory: Reports: shortness of breath Gastrointestinal/Abdominal: Reports: no symptoms Genitourinary: Reports: no symptoms 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: Reports: no symptoms Subjective 76 YO F admitted with respiratory distress. Now CHF Exacerbation. RADHA. Cover for Int Med-Dr Jones. Tolerating venturi mask Objective Last Vital Signs Date Time Temp Pulse Resp B/P (MAP) Pulse Ox O2 Delivery O2 Flow Rate FiO2 01/29/17 08:10 97.4 87 20 148/70 100 Venturi Mask 45 01/29/17 07:49 10.0 Laboratory Tests Test 01/29/17 03:55 White Blood Count 7.4 K/UL (4.8-10.8) Red Blood Count 3.49 M/UL (4.20-5.40) L Hemoglobin 9.0 G/DL (12.0-16.0) L Hematocrit 31.9 % (37.0-47.0) L Mean Corpuscular Volume 91 FL (80-99) Mean Corpuscular Hemoglobin 25.8 PG (27.0-31.0) L Mean Corpuscular Hemoglobin Concent 28.2 G/DL (32.0-36.0) L Red Cell Distribution Width 24.1 % (11.6-14.8) H Platelet Count 132 K/UL (150-450) L Mean Platelet Volume 5.6 FL (6.5-10.1) L Neutrophils (%) (Auto) 78.4 % (45.0-75.0) H Lymphocytes (%) (Auto) 9.6 % (20.0-45.0) L Monocytes (%) (Auto) 10.0 % (1.0-10.0) Eosinophils (%) (Auto) 1.4 % (0.0-3.0) Basophils (%) (Auto) 0.6 % (0.0-2.0) Sodium Level 145 mEQ/L (135-145) Potassium Level 3.7 mEQ/L (3.4-4.9) Chloride Level 96 mEQ/L (98-107) L Carbon Dioxide Level 37 mEQ/L (20-30) H Anion Gap 12 (5-15) Blood Urea Nitrogen 69 mg/dL (7-23) H Creatinine 3.8 mg/dL (0.5-0.9) H Estimat Glomerular Filtration Rate mL/min (>60) Glucose Level 98 mg/dL (74-106) Calcium Level 9.0 mg/dL (8.6-10.2) Phosphorus Level 5.1 mg/dL (2.5-4.8) H Magnesium Level 1.9 mg/dL (1.7-2.5) Total Bilirubin 0.6 mg/dL (0.0-1.2) Aspartate Amino Transf (AST/SGOT) 15 U/L (5-40) Alanine Aminotransferase (ALT/SGPT) 5 U/L (3-33) Alkaline Phosphatase 50 U/L (35-104) Total Protein 6.5 g/dL (6.6-8.7) L Albumin 3.4 g/dL (3.5-5.2) L Globulin 3.1 g/dL Albumin/Globulin Ratio 1.0 (1.0-2.7) Objective General Appearance: alert, moderate distress, obese EENT: PERRL/EOMI, normal ENT inspection Neck: non-tender, normal alignment, supple Cardiovascular: normal peripheral pulses, normal rate, regular rhythm, no gallop/murmur, no JVD Respiratory/Chest: venturi mask; respiratory distress, crackles/rales, rhonchi - bilaterally, expiratory wheezing Abdomen: normal bowel sounds, non tender, soft, no organomegaly, no mass Extremities: normal range of motion Neurologic: refrigerating oiler II-XII grossly normal, no motor/sensory deficits Skin: normal pigmentation, warm/dry Assessment/Plan Problem List: (1) Atrial fibrillation Assessment & Plan: Rate controlled. See cardiology note. (2) Renal failure Assessment & Plan: Worsening. See nephrology note- hemodialysis today 01/29/17. (3) Respiratory distress Assessment & Plan: Due to CHF. See pulm note. See cardiology consult-Dr Boone. Continue IV lasix (4) Morbid obesity (5) Congestive heart failure Assessment & Plan: With preserved LV function. LVEF=65-70%. Cont IV lasix. See cardiology consult. (6) Diabetes mellitus Assessment & Plan: Continue novolog sliding scale. (7) Anemia, chronic renal failure (8) Pulmonary HTN (9) TALITA (obstructive sleep apnea) Status: not improved Assessment/Plan Discharge planning: [facility] nursing home fac. NICK OATES Jan 29, 2017 11:54
[2017-01-29 12:00] VITALS: BP 125/70
--- NOTE | 2017-01-29 14:32 | Cardiology Progress Note ---
Assessment/Plan Assessment/Plan 1. Congestive heart failure with preserved left ventricular systolic function. 2. Right heart failure. 3. Pulmonary hypertension. 4. Severe tricuspid regurgitation. 5. Permanent atrial fibrillation. 6. Moderate tricuspid regurgitation. 7. Chronic renal insufficiency. 8. Anemia. 9. Urinary tract infection. 10. Obesity. 11. History of colon cancer. 12. Diabetes mellitus. 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 Subjective ROS Limited/Unobtainable: Yes Subjective sleeping on dialyssi agitated earlier Objective Last 24 Hour Vital Signs Date Time Temp Pulse Resp B/P (MAP) Pulse Ox O2 Delivery O2 Flow Rate FiO2 01/29/17 12:00 98.3 83 20 125/70 97 Venturi Mask 45 01/29/17 12:00 81 01/29/17 08:10 97.4 87 20 148/70 100 Venturi Mask 45 01/29/17 08:00 88 01/29/17 07:49 Venturi Mask 10.0 45 01/29/17 07:49 98 Venturi Mask 10.0 45 01/29/17 07:48 82 18 Venturi Mask 10.0 45 01/29/17 04:00 82 01/29/17 04:00 98.0 80 24 126/57 98 Venturi Mask 55 01/29/17 00:36 98.9 86 22 126/71 97 01/28/17 23:30 87 01/28/17 20:41 Venturi Mask 10.0 45 01/28/17 20:41 96 Venturi Mask 10.0 45 01/28/17 20:40 84 18 Venturi Mask 10.0 45 01/28/17 20:00 98.6 90 24 140/71 97 Venturi Mask 01/28/17 20:00 88 01/28/17 16:14 97.2 82 19 128/53 95 Venturi Mask 45 01/28/17 16:00 80 General Appearance: other - sleeping Neck: normal alignment Cardiovascular: normal rate, regular rhythm Respiratory/Chest: lungs clear, normal breath sounds Abdomen: normal bowel sounds, non tender, soft Extremities: non-tender, severe edema Laboratory Tests Test 01/29/17 03:55 White Blood Count 7.4 K/UL (4.8-10.8) Red Blood Count 3.49 M/UL (4.20-5.40) L Hemoglobin 9.0 G/DL (12.0-16.0) L Hematocrit 31.9 % (37.0-47.0) L Mean Corpuscular Volume 91 FL (80-99) Mean Corpuscular Hemoglobin 25.8 PG (27.0-31.0) L Mean Corpuscular Hemoglobin Concent 28.2 G/DL (32.0-36.0) L Red Cell Distribution Width 24.1 % (11.6-14.8) H Platelet Count 132 K/UL (150-450) L Mean Platelet Volume 5.6 FL (6.5-10.1) L Neutrophils (%) (Auto) 78.4 % (45.0-75.0) H Lymphocytes (%) (Auto) 9.6 % (20.0-45.0) L Monocytes (%) (Auto) 10.0 % (1.0-10.0) Eosinophils (%) (Auto) 1.4 % (0.0-3.0) Basophils (%) (Auto) 0.6 % (0.0-2.0) Sodium Level 145 mEQ/L (135-145) Potassium Level 3.7 mEQ/L (3.4-4.9) Chloride Level 96 mEQ/L (98-107) L Carbon Dioxide Level 37 mEQ/L (20-30) H Anion Gap 12 (5-15) Blood Urea Nitrogen 69 mg/dL (7-23) H Creatinine 3.8 mg/dL (0.5-0.9) H Estimat Glomerular Filtration Rate mL/min (>60) Glucose Level 98 mg/dL (74-106) Calcium Level 9.0 mg/dL (8.6-10.2) Phosphorus Level 5.1 mg/dL (2.5-4.8) H Magnesium Level 1.9 mg/dL (1.7-2.5) Total Bilirubin 0.6 mg/dL (0.0-1.2) Aspartate Amino Transf (AST/SGOT) 15 U/L (5-40) Alanine Aminotransferase (ALT/SGPT) 5 U/L (3-33) Alkaline Phosphatase 50 U/L (35-104) Total Protein 6.5 g/dL (6.6-8.7) L Albumin 3.4 g/dL (3.5-5.2) L Globulin 3.1 g/dL Albumin/Globulin Ratio 1.0 (1.0-2.7) JULIO MUNOZ Jan 29, 2017 14:32
[2017-01-29 16:00] VITALS: BP 122/68
[2017-01-29] MEDS: Dyna-Hex 2% Top Sol 2oz TOPIC SCH (20:56)
[2017-01-29 22:00] VITALS: BP 136/68
[2017-01-30] VITALS: BP 112/62
[2017-01-30 04:00] VITALS: BP 113/61
[2017-01-30] MEDS: NovoLOG Insulin Flexpen SUBQ SCH ×3 (06:29→16:18)
[2017-01-30 06:32] LABS: BASOPHILS % (AUTO) 0.6 % (0.0-2.0); EOSINOPHILS % (AUTO) 0.9 % (0.0-3.0); LYMPHOCYTES % (AUTO) 6.9 % (20.0-45.0); MEAN CORPUSCULAR HEMOGLOBIN 26.2 PG (27.0-31.0); MEAN CORPUSCULAR HGB CONC 28.5 G/DL (32.0-36.0); MEAN CORPUSCULAR VOLUME 92 FL (80-99); MEAN PLATELET VOLUME 6.3 FL (6.5-10.1); MONOCYTES % (AUTO) 9.7 % (1.0-10.0); NEUTROPHILS % (AUTO) 81.9 % (45.0-75.0); PLATELET COUNT 127 K/UL (150-450); RED BLOOD COUNT 3.53 M/UL (4.20-5.40); RED CELL DISTRIBUTION WIDTH 24.2 % (11.6-14.8)
[2017-01-30 07:04] LABS: ALANINE AMINOTRANSFERASE 5 U/L (3-33); ALBUMIN/GLOBULIN RATIO 0.6 (1.0-2.7); ANION GAP 13 (5-15); ASPARTATE AMINO TRANSFERASE 18 U/L (5-40); CARBON DIOXIDE 36 mEQ/L (20-30); CHLORIDE 96 mEQ/L (98-107); CRP QUANT 3.1 mg/dL (< 0.5); HEMOLYSIS 55; MAGNESIUM 1.8 mg/dL (1.7-2.5); PHOSPHORUS 4.3 mg/dL (2.5-4.8); POTASSIUM 3.8 mEQ/L (3.4-4.9); SODIUM 145 mEQ/L (135-145); TOTAL PROTEIN 8.4 g/dL (6.6-8.7); URIC ACID 4.7 mg/dL (3.0-7.5)
[2017-01-30 07:59] VITALS: BP 156/71
--- NOTE | 2017-01-30 08:33 | Infectious Diseases Prog Note ---
Assessment/Plan Assessment/Plan A; Asymptomatic bacteriuria ESRD CHF Anemia DM Morbid obesity p: Observe off antibiotic Subjective ROS Limited/Unobtainable: Yes Respiratory: Reports: no symptoms Gastrointestinal/Abdominal: Reports: no symptoms Genitourinary: Reports: no symptoms Neurologic: Reports: confusion Allergies: Coded Allergies: No Known Allergies (Unverified , 01/22/17) Objective Vital Signs Last 24 Hour Vital Signs Date Time Temp Pulse Resp B/P (MAP) Pulse Ox O2 Delivery O2 Flow Rate FiO2 01/30/17 07:59 98.3 83 20 156/71 98 Venturi Mask 10.0 45 01/30/17 07:15 Venturi Mask 10.0 45 01/30/17 07:15 98 Venturi Mask 10.0 45 01/30/17 07:15 81 16 Venturi Mask 10.0 45 01/30/17 04:00 50 01/30/17 04:00 98.6 90 20 113/61 97 Venturi Mask 01/30/17 03:52 84 01/30/17 01:21 71 15.0 55 01/30/17 00:00 50 01/30/17 00:00 76 01/30/17 00:00 98.2 81 21 112/62 100 Bi-pap 50 01/29/17 23:45 76 15.0 55 01/29/17 22:00 98.3 77 19 136/68 100 Bi-pap 50 01/29/17 21:02 67 32 99 Facial 40 01/29/17 20:05 78 28 99 Facial 40 01/29/17 20:00 50 01/29/17 19:57 78 01/29/17 19:54 Venturi Mask 10.0 45 01/29/17 19:54 80 18 Venturi Mask 10.0 45 01/29/17 19:54 97 Venturi Mask 10.0 45 01/29/17 16:00 77 01/29/17 16:00 98.2 88 19 122/68 97 Venturi Mask 45 01/29/17 14:45 Venturi Mask 45 01/29/17 12:00 98.3 83 20 125/70 97 Venturi Mask 45 01/29/17 12:00 81 01/29/17 11:40 Venturi Mask 45 Height (Feet): 5 Height (Inches): 4.00 Weight (Pounds): 302 HEENT: other - O2 by mask Respiratory/Chest: lungs clear Cardiovascular: normal rate, other - RIJ HD line Abdomen: soft, non tender Extremities: other - non pitting edema 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: alert, responsive Laboratory Tests Test 01/30/17 05:24 White Blood Count 9.0 K/UL (4.8-10.8) Red Blood Count 3.53 M/UL (4.20-5.40) L Hemoglobin 9.2 G/DL (12.0-16.0) L Hematocrit 32.3 % (37.0-47.0) L Mean Corpuscular Volume 92 FL (80-99) Mean Corpuscular Hemoglobin 26.2 PG (27.0-31.0) L Mean Corpuscular Hemoglobin Concent 28.5 G/DL (32.0-36.0) L Red Cell Distribution Width 24.2 % (11.6-14.8) H Platelet Count 127 K/UL (150-450) L Mean Platelet Volume 6.3 FL (6.5-10.1) L Neutrophils (%) (Auto) 81.9 % (45.0-75.0) H Lymphocytes (%) (Auto) 6.9 % (20.0-45.0) L Monocytes (%) (Auto) 9.7 % (1.0-10.0) Eosinophils (%) (Auto) 0.9 % (0.0-3.0) Basophils (%) (Auto) 0.6 % (0.0-2.0) Sodium Level 145 mEQ/L (135-145) Potassium Level 3.8 mEQ/L (3.4-4.9) Chloride Level 96 mEQ/L (98-107) L Carbon Dioxide Level 36 mEQ/L (20-30) H Anion Gap 13 (5-15) Blood Urea Nitrogen 39 mg/dL (7-23) #H Creatinine 3.0 mg/dL (0.5-0.9) H Estimat Glomerular Filtration Rate mL/min (>60) Glucose Level 104 mg/dL (74-106) Uric Acid 4.7 mg/dL (3.0-7.5) Calcium Level 9.0 mg/dL (8.6-10.2) Phosphorus Level 4.3 mg/dL (2.5-4.8) Magnesium Level 1.8 mg/dL (1.7-2.5) Total Bilirubin 0.8 mg/dL (0.0-1.2) Gamma Glutamyl Transpeptidase 30 U/L (5-36) Aspartate Amino Transf (AST/SGOT) 18 U/L (5-40) Alanine Aminotransferase (ALT/SGPT) 5 U/L (3-33) Alkaline Phosphatase 53 U/L (35-104) Total Creatine Kinase 52 U/L (26-140) C-Reactive Protein, Quantitative 3.1 mg/dL (< 0.5) H Pro-B-Type Natriuretic Peptide 90594 pg/mL (0-450) H Total Protein 8.4 g/dL (6.6-8.7) Albumin 3.4 g/dL (3.5-5.2) L Globulin 5.0 g/dL Albumin/Globulin Ratio 0.6 (1.0-2.7) L Current Medications Medications (Trade) Dose Ordered Sig/Johan Route PRN Reason Start Time Stop Time Status Last Admin Dose Admin Acetaminophen (Tylenol) 650 mg Q4H PRN ORAL T>100.5 01/22/17 07:00 02/21/17 06:59 01/27/17 15:16 Allopurinol (Allopurinol) 300 mg DAILY ORAL 01/22/17 09:00 02/21/17 08:59 01/29/17 08:28 Chlorhexidine Gluconate (Abigail-Hex 2%) 1 applic BEDTIME TOPIC 01/26/17 21:00 02/25/17 20:59 01/29/17 20:56 Dextrose (Dextrose 50%) STAT PRN IV Hypoglycemia 01/22/17 07:00 02/21/17 06:59 Docusate Sodium (Colace) 100 mg TID ORAL 01/25/17 13:00 02/24/17 12:59 01/29/17 08:28 Haloperidol Lactate (Haldol) 2 mg Q4H PRN IM agitation 01/25/17 13:30 02/24/17 13:29 01/29/17 12:19 Heparin Sodium (Porcine) (Heparin 5000 units/ml) 5,000 units EVERY 12 HOURS SUBQ 01/22/17 09:00 02/21/17 08:59 01/29/17 20:54 Insulin Aspart (NovoLOG) BEFORE MEALS AND HS SUBQ 01/22/17 11:30 02/21/17 11:29 01/29/17 20:56 Lansoprazole (Prevacid) 30 mg DAILY ORAL 01/23/17 15:00 02/22/17 14:59 01/29/17 08:28 Nystatin (Nystop Powder) 1 applic Q12HR TOPIC 01/22/17 14:00 02/21/17 13:59 01/29/17 20:57 Ondansetron HCl (Zofran) 4 mg Q6H PRN IVP Nausea & Vomiting 01/22/17 07:00 02/21/17 06:59 Polyethylene Glycol (Miralax) 17 gm DAILYPRN PRN ORAL Constipation 01/22/17 07:00 02/21/17 06:59 Quetiapine Fumarate (SEROquel) 12.5 mg Q6H PRN ORAL Agitation 01/26/17 11:15 02/25/17 11:14 Sevelamer Carbonate (Renvela) 2,400 mg THREE TIMES A DAY ORAL 01/27/17 13:00 02/26/17 12:59 01/29/17 08:28 HOSSEIN LIM Jan 30, 2017 08:33
[2017-01-30] MEDS: Docusate 100mg cap ORAL SCH ×3 (08:51→18:06)
[2017-01-30] MEDS: Heparin 5000 units/ml inj SUBQ SCH (08:58)
[2017-01-30] MEDS: Nystatin Powder 100,000 units/gm 15gm TOPIC SCH (09:00)
--- NOTE | 2017-01-30 09:54 | General Progress Note ---
Assessment/Plan Status: stable Status Narrative had 2 dialysis with UF Assessment/Plan Renal failure, likely chronic with superimposed acute ASSESSMENT: This is a 76-year-old white female with: -. Shortness of breath. Respiratory failure, Hypoxia -. Acute congestive heart failure. -. Diabetes type 2. -. Atrial fibrillation. -. Congestive heart failure. Right heart failure -. Morbid obesity. -. History of colon cancer. -. TALITA -. Anemia plan: HD- as needed monitor Cr One dose Zaroxyllin 24 h urine CrCl 6 mag and K supplement as needed Optimize cardiac and pulmonary status- Monitor renal parameters avoid Nephrotoxics Urine studies 2D Echo- reviewed Right cardiac chamber sizes are severely enlarged.RV hypokinesis Kidney DEBI, unremarkable gastric coverage anemia nguyen stool softners long discussion with Zion Perez the brother 01/25/17 Dialysis discussed,.will wait another day and check Cr level Subjective ROS Limited/Unobtainable: No Constitutional: Reports: malaise, weakness Allergies: Coded Allergies: No Known Allergies (Unverified , 01/22/17) Objective Last 24 Hour Vital Signs Date Time Temp Pulse Resp B/P (MAP) Pulse Ox O2 Delivery O2 Flow Rate FiO2 01/30/17 08:00 93 01/30/17 07:59 98.3 83 20 156/71 98 Venturi Mask 10.0 45 01/30/17 07:15 Venturi Mask 10.0 45 01/30/17 07:15 98 Venturi Mask 10.0 45 01/30/17 07:15 81 16 Venturi Mask 10.0 45 01/30/17 04:00 50 01/30/17 04:00 98.6 90 20 113/61 97 Venturi Mask 01/30/17 03:52 84 01/30/17 01:21 71 15.0 55 01/30/17 00:00 50 01/30/17 00:00 76 01/30/17 00:00 98.2 81 21 112/62 100 Bi-pap 50 01/29/17 23:45 76 15.0 55 01/29/17 22:00 98.3 77 19 136/68 100 Bi-pap 50 01/29/17 21:02 67 32 99 Facial 40 01/29/17 20:05 78 28 99 Facial 40 01/29/17 20:00 50 01/29/17 19:57 78 01/29/17 19:54 Venturi Mask 10.0 45 01/29/17 19:54 80 18 Venturi Mask 10.0 45 01/29/17 19:54 97 Venturi Mask 10.0 45 01/29/17 16:00 77 01/29/17 16:00 98.2 88 19 122/68 97 Venturi Mask 45 01/29/17 14:45 Venturi Mask 45 01/29/17 12:00 98.3 83 20 125/70 97 Venturi Mask 45 01/29/17 12:00 81 01/29/17 11:40 Venturi Mask 45 Laboratory Tests 01/30/17 05:24: White Blood Count 9.0, Red Blood Count 3.53L, Hemoglobin 9.2L, Hematocrit 32.3L , Mean Corpuscular Volume 92, Mean Corpuscular Hemoglobin 26.2L, Mean Corpuscular Hemoglobin Concent 28.5L, Red Cell Distribution Width 24.2H, Platelet Count 127L, Mean Platelet Volume 6.3L, Neutrophils (%) (Auto) 81.9H, Lymphocytes (%) (Auto) 6.9L, Monocytes (%) (Auto) 9.7, Eosinophils (%) (Auto) 0.9, Basophils (%) (Auto) 0.6, Sodium Level 145, Potassium Level 3.8, Chloride Level 96L, Carbon Dioxide Level 36H, Anion Gap 13, Blood Urea Nitrogen 39#H, Creatinine 3.0H, Estimat Glomerular Filtration Rate , Glucose Level 104, Uric Acid 4.7, Calcium Level 9.0, Phosphorus Level 4.3, Magnesium Level 1.8, Total Bilirubin 0.8, Gamma Glutamyl Transpeptidase 30, Aspartate Amino Transf (AST/ SGOT) 18, Alanine Aminotransferase (ALT/SGPT) 5, Alkaline Phosphatase 53, Total Creatine Kinase 52, C-Reactive Protein, Quantitative 3.1H, Pro-B-Type Natriuretic Peptide 42055Q, Total Protein 8.4, Albumin 3.4L, Globulin 5.0, Albumin/Globulin Ratio 0.6L Height (Feet): 5 Height (Inches): 4.00 Weight (Pounds): 302 Objective other PE not changed FATOUMATA BLANK Jan 30, 2017 09:54
--- NOTE | 2017-01-30 10:55 | Pulmonology Progress Note ---
Assessment/Plan Problems: (1) Respiratory distress (2) Congestive heart failure (3) Morbid obesity (4) Diabetes mellitus (5) TALITA (obstructive sleep apnea) Assessment/Plan still on face mask HD by nephrology echo and renal US reviewed cxr improving check sputum titrate fio2 symptomatic treatment check electrolytes. Subjective ROS Limited/Unobtainable: No Constitutional: Reports: no symptoms HEENT: Repors: no symptoms Respiratory: Reports: no symptoms Allergies: Coded Allergies: No Known Allergies (Unverified , 01/22/17) Objective Last 24 Hour Vital Signs Date Time Temp Pulse Resp B/P (MAP) Pulse Ox O2 Delivery O2 Flow Rate FiO2 01/30/17 08:00 93 01/30/17 07:59 98.3 83 20 156/71 98 Venturi Mask 10.0 45 01/30/17 07:15 Venturi Mask 10.0 45 01/30/17 07:15 98 Venturi Mask 10.0 45 01/30/17 07:15 81 16 Venturi Mask 10.0 45 01/30/17 04:00 50 01/30/17 04:00 98.6 90 20 113/61 97 Venturi Mask 01/30/17 03:52 84 01/30/17 01:21 71 15.0 55 01/30/17 00:00 50 01/30/17 00:00 76 01/30/17 00:00 98.2 81 21 112/62 100 Bi-pap 50 01/29/17 23:45 76 15.0 55 01/29/17 22:00 98.3 77 19 136/68 100 Bi-pap 50 01/29/17 21:02 67 32 99 Facial 40 01/29/17 20:05 78 28 99 Facial 40 01/29/17 20:00 50 01/29/17 19:57 78 01/29/17 19:54 Venturi Mask 10.0 45 01/29/17 19:54 80 18 Venturi Mask 10.0 45 01/29/17 19:54 97 Venturi Mask 10.0 45 01/29/17 16:00 77 01/29/17 16:00 98.2 88 19 122/68 97 Venturi Mask 45 01/29/17 14:45 Venturi Mask 45 01/29/17 12:00 98.3 83 20 125/70 97 Venturi Mask 45 01/29/17 12:00 81 10/7/17 11:40 Venturi Mask 45 General Appearance: WD/WN HEENT: normocephalic Respiratory/Chest: chest wall non-tender, normal breath sounds Breasts: no masses Cardiovascular: normal peripheral pulses, normal rate Abdomen: normal bowel sounds, soft, non tender Extremities: no cyanosis Skin: no rash Laboratory Tests 01/30/17 05:24: White Blood Count 9.0, Red Blood Count 3.53L, Hemoglobin 9.2L, Hematocrit 32.3L , Mean Corpuscular Volume 92, Mean Corpuscular Hemoglobin 26.2L, Mean Corpuscular Hemoglobin Concent 28.5L, Red Cell Distribution Width 24.2H, Platelet Count 127L, Mean Platelet Volume 6.3L, Neutrophils (%) (Auto) 81.9H, Lymphocytes (%) (Auto) 6.9L, Monocytes (%) (Auto) 9.7, Eosinophils (%) (Auto) 0.9, Basophils (%) (Auto) 0.6, Sodium Level 145, Potassium Level 3.8, Chloride Level 96L, Carbon Dioxide Level 36H, Anion Gap 13, Blood Urea Nitrogen 39#H, Creatinine 3.0H, Estimat Glomerular Filtration Rate , Glucose Level 104, Uric Acid 4.7, Calcium Level 9.0, Phosphorus Level 4.3, Magnesium Level 1.8, Total Bilirubin 0.8, Gamma Glutamyl Transpeptidase 30, Aspartate Amino Transf (AST/ SGOT) 18, Alanine Aminotransferase (ALT/SGPT) 5, Alkaline Phosphatase 53, Total Creatine Kinase 52, C-Reactive Protein, Quantitative 3.1H, Pro-B-Type Natriuretic Peptide 07151K, Total Protein 8.4, Albumin 3.4L, Globulin 5.0, Albumin/Globulin Ratio 0.6L Current Medications Medications (Trade) Dose Ordered Sig/Johan Route PRN Reason Start Time Stop Time Status Last Admin Dose Admin Acetaminophen (Tylenol) 650 mg Q4H PRN ORAL T>100.5 01/22/17 07:00 02/21/17 06:59 01/27/17 15:16 Allopurinol (Allopurinol) 300 mg DAILY ORAL 01/22/17 09:00 02/21/17 08:59 01/30/17 08:51 Chlorhexidine Gluconate (Abigail-Hex 2%) 1 applic BEDTIME TOPIC 01/26/17 21:00 02/25/17 20:59 01/29/17 20:56 Dextrose (Dextrose 50%) STAT PRN IV Hypoglycemia 01/22/17 07:00 02/21/17 06:59 Docusate Sodium (Colace) 100 mg TID ORAL 01/25/17 13:00 02/24/17 12:59 01/30/17 08:51 Haloperidol Lactate (Haldol) 2 mg Q4H PRN IM agitation 01/25/17 13:30 02/24/17 13:29 01/29/17 12:19 Heparin Sodium (Porcine) (Heparin 5000 units/ml) 5,000 units EVERY 12 HOURS SUBQ 01/22/17 09:00 02/21/17 08:59 01/30/17 08:58 Insulin Aspart (NovoLOG) BEFORE MEALS AND HS SUBQ 01/22/17 11:30 02/21/17 11:29 01/29/17 20:56 Lansoprazole (Prevacid) 30 mg DAILY ORAL 01/23/17 15:00 02/22/17 14:59 01/30/17 08:51 Nystatin (Nystop Powder) 1 applic Q12HR TOPIC 01/22/17 14:00 02/21/17 13:59 01/30/17 09:00 Ondansetron HCl (Zofran) 4 mg Q6H PRN IVP Nausea & Vomiting 01/22/17 07:00 02/21/17 06:59 Polyethylene Glycol (Miralax) 17 gm DAILYPRN PRN ORAL Constipation 01/22/17 07:00 02/21/17 06:59 Quetiapine Fumarate (SEROquel) 12.5 mg Q6H PRN ORAL Agitation 01/26/17 11:15 02/25/17 11:14 Sevelamer Carbonate (Renvela) 2,400 mg THREE TIMES A DAY ORAL 01/27/17 13:00 02/26/17 12:59 01/30/17 08:51 LINDY JORDAN Jan 30, 2017 10:55
--- NOTE | 2017-01-30 11:00 | Diagnostic Imaging Report ---
Indication: Dyspnea Technique: XRAY CHEST 1 V Comparison: 01/28/17 Findings: Cardio mediastinal silhouette is stable. Right internal jugular Zachary catheter is again noted. Bilateral interstitial edema/infiltrates are unchanged. Osseous structures are stable. Impression: No significant change from 01/28/17.
[2017-01-30 12:00] VITALS: BP 141/70
--- NOTE | 2017-01-30 13:59 | Internal Med Progress Note ---
Subjective Date of Service: Jan 30, 2017 Physician Name Nick Oates Attending Physician Jaren Jones MD Current Medications Medications (Trade) Dose Ordered Sig/Johan Route PRN Reason Start Time Stop Time Status Last Admin Dose Admin Acetaminophen (Tylenol) 650 mg Q4H PRN ORAL T>100.5 01/22/17 07:00 02/21/17 06:59 01/27/17 15:16 Allopurinol (Allopurinol) 300 mg DAILY ORAL 01/22/17 09:00 02/21/17 08:59 01/30/17 08:51 Chlorhexidine Gluconate (Abigail-Hex 2%) 1 applic BEDTIME TOPIC 01/26/17 21:00 02/25/17 20:59 01/29/17 20:56 Dextrose (Dextrose 50%) STAT PRN IV Hypoglycemia 01/22/17 07:00 02/21/17 06:59 Docusate Sodium (Colace) 100 mg TID ORAL 01/25/17 13:00 02/24/17 12:59 01/30/17 08:51 Haloperidol Lactate (Haldol) 2 mg Q4H PRN IM agitation 01/25/17 13:30 02/24/17 13:29 01/29/17 12:19 Heparin Sodium (Porcine) (Heparin 5000 units/ml) 5,000 units EVERY 12 HOURS SUBQ 01/22/17 09:00 02/21/17 08:59 01/30/17 08:58 Insulin Aspart (NovoLOG) BEFORE MEALS AND HS SUBQ 01/22/17 11:30 02/21/17 11:29 01/30/17 11:42 Lansoprazole (Prevacid) 30 mg DAILY ORAL 01/23/17 15:00 02/22/17 14:59 01/30/17 08:51 Nystatin (Nystop Powder) 1 applic Q12HR TOPIC 01/22/17 14:00 02/21/17 13:59 01/30/17 09:00 Ondansetron HCl (Zofran) 4 mg Q6H PRN IVP Nausea & Vomiting 01/22/17 07:00 02/21/17 06:59 Polyethylene Glycol (Miralax) 17 gm DAILYPRN PRN ORAL Constipation 01/22/17 07:00 02/21/17 06:59 Quetiapine Fumarate (SEROquel) 12.5 mg Q6H PRN ORAL Agitation 01/26/17 11:15 02/25/17 11:14 Sevelamer Carbonate (Renvela) 2,400 mg THREE TIMES A DAY ORAL 01/27/17 13:00 02/26/17 12:59 01/30/17 13:01 Allergies: Coded Allergies: No Known Allergies (Unverified , 01/22/17) ROS Limited/Unobtainable: Yes Subjective 76 YO F admitted with respiratory distress. Now CHF Exacerbation. RADHA. Cover for Int Med-Dr Jones. Tolerating nasal canula Objective Last Vital Signs Date Time Temp Pulse Resp B/P (MAP) Pulse Ox O2 Delivery O2 Flow Rate FiO2 01/30/17 12:00 98.2 86 20 141/70 99 Nasal Cannula 5.0 01/30/17 07:59 45 Laboratory Tests Test 01/30/17 05:24 White Blood Count 9.0 K/UL (4.8-10.8) Red Blood Count 3.53 M/UL (4.20-5.40) L Hemoglobin 9.2 G/DL (12.0-16.0) L Hematocrit 32.3 % (37.0-47.0) L Mean Corpuscular Volume 92 FL (80-99) Mean Corpuscular Hemoglobin 26.2 PG (27.0-31.0) L Mean Corpuscular Hemoglobin Concent 28.5 G/DL (32.0-36.0) L Red Cell Distribution Width 24.2 % (11.6-14.8) H Platelet Count 127 K/UL (150-450) L Mean Platelet Volume 6.3 FL (6.5-10.1) L Neutrophils (%) (Auto) 81.9 % (45.0-75.0) H Lymphocytes (%) (Auto) 6.9 % (20.0-45.0) L Monocytes (%) (Auto) 9.7 % (1.0-10.0) Eosinophils (%) (Auto) 0.9 % (0.0-3.0) Basophils (%) (Auto) 0.6 % (0.0-2.0) Sodium Level 145 mEQ/L (135-145) Potassium Level 3.8 mEQ/L (3.4-4.9) Chloride Level 96 mEQ/L (98-107) L Carbon Dioxide Level 36 mEQ/L (20-30) H Anion Gap 13 (5-15) Blood Urea Nitrogen 39 mg/dL (7-23) #H Creatinine 3.0 mg/dL (0.5-0.9) H Estimat Glomerular Filtration Rate mL/min (>60) Glucose Level 104 mg/dL (74-106) Uric Acid 4.7 mg/dL (3.0-7.5) Calcium Level 9.0 mg/dL (8.6-10.2) Phosphorus Level 4.3 mg/dL (2.5-4.8) Magnesium Level 1.8 mg/dL (1.7-2.5) Total Bilirubin 0.8 mg/dL (0.0-1.2) Gamma Glutamyl Transpeptidase 30 U/L (5-36) Aspartate Amino Transf (AST/SGOT) 18 U/L (5-40) Alanine Aminotransferase (ALT/SGPT) 5 U/L (3-33) Alkaline Phosphatase 53 U/L (35-104) Total Creatine Kinase 52 U/L (26-140) C-Reactive Protein, Quantitative 3.1 mg/dL (< 0.5) H Pro-B-Type Natriuretic Peptide 07970 pg/mL (0-450) H Total Protein 8.4 g/dL (6.6-8.7) Albumin 3.4 g/dL (3.5-5.2) L Globulin 5.0 g/dL Albumin/Globulin Ratio 0.6 (1.0-2.7) L Objective General Appearance: alert, moderate distress, obese EENT: PERRL/EOMI, normal ENT inspection Neck: non-tender, normal alignment, supple Cardiovascular: normal peripheral pulses, normal rate, regular rhythm, no gallop/murmur, no JVD Respiratory/Chest: Nasal canula; respiratory distress, crackles/rales, rhonchi - bilaterally, expiratory wheezing Abdomen: normal bowel sounds, non tender, soft, no organomegaly, no mass Extremities: normal range of motion Neurologic: roll icer machine II-XII grossly normal, no motor/sensory deficits Skin: normal pigmentation, warm/dry Assessment/Plan Problem List: (1) Atrial fibrillation Assessment & Plan: Rate controlled. See cardiology note. (2) Renal failure Assessment & Plan: Worsening. See nephrology note- hemodialysis today 01/29/17. (3) Respiratory distress Assessment & Plan: Due to CHF. See pulm note. See cardiology consult-Dr Boone. Continue IV lasix (4) Morbid obesity (5) Congestive heart failure Assessment & Plan: With preserved LV function. LVEF=65-70%. Cont IV lasix. See cardiology consult. (6) Diabetes mellitus Assessment & Plan: Continue novolog sliding scale. (7) Anemia, chronic renal failure (8) Pulmonary HTN (9) TALITA (obstructive sleep apnea) Status: not improved Assessment/Plan Discharge planning: [facility] vs half-way fac. NICK OATES Jan 30, 2017 13:59
[2017-01-30 16:00] VITALS: BP 119/56
--- NOTE | 2017-01-30 18:55 | Cardiology Progress Note ---
Assessment/Plan Assessment/Plan 1. Congestive heart failure with preserved left ventricular systolic function. 2. Right heart failure. 3. Pulmonary hypertension. 4. Severe tricuspid regurgitation. 5. Permanent atrial fibrillation. 6. Moderate tricuspid regurgitation. 7. Chronic renal insufficiency. 8. Anemia. 9. Urinary tract infection. 10. Obesity. 11. History of colon cancer. 12. Diabetes mellitus. s/p dialyssi yest looks better to day tele afib vr is fine oxygenating adequately on NC is not on anticoagulation because of recent gastrointestinal bleeding requiring blood transfusions d/w rn Subjective Cardiovascular: Denies: chest pain, lightheadedness Respiratory: Denies: shortness of breath Gastrointestinal/Abdominal: Denies: abdominal pain Genitourinary: Denies: burning Subjective on nc looks better Objective Last 24 Hour Vital Signs Date Time Temp Pulse Resp B/P (MAP) Pulse Ox O2 Delivery O2 Flow Rate FiO2 01/30/17 16:00 98.3 82 18 119/56 99 Nasal Cannula 5.0 01/30/17 12:00 98.2 86 20 141/70 99 Nasal Cannula 5.0 01/30/17 12:00 81 01/30/17 08:00 93 01/30/17 07:59 98.3 83 20 156/71 98 Venturi Mask 10.0 45 01/30/17 07:15 Venturi Mask 10.0 45 01/30/17 07:15 98 Venturi Mask 10.0 45 01/30/17 07:15 81 16 Venturi Mask 10.0 45 01/30/17 04:00 50 01/30/17 04:00 98.6 90 20 113/61 97 Venturi Mask 01/30/17 03:52 84 01/30/17 01:21 71 15.0 55 01/30/17 00:00 50 01/30/17 00:00 76 01/30/17 00:00 98.2 81 21 112/62 100 Bi-pap 50 01/29/17 23:45 76 15.0 55 01/29/17 22:00 98.3 77 19 136/68 100 Bi-pap 50 01/29/17 21:02 67 32 99 Facial 40 01/29/17 20:05 78 28 99 Facial 40 01/29/17 20:00 50 01/29/17 19:57 78 01/29/17 19:54 Venturi Mask 10.0 45 01/29/17 19:54 80 18 Venturi Mask 10.0 45 01/29/17 19:54 97 Venturi Mask 10.0 45 General Appearance: obese, patient on isolation Neck: JVD Cardiovascular: normal rate Respiratory/Chest: decreased breath sounds Abdomen: normal bowel sounds, non tender, soft Extremities: moderate edema Intake and Output 01/30/17 01/31/17 19:00 07:00 # Bowel Movements 1 Laboratory Tests Test 01/30/17 05:24 White Blood Count 9.0 K/UL (4.8-10.8) Red Blood Count 3.53 M/UL (4.20-5.40) L Hemoglobin 9.2 G/DL (12.0-16.0) L Hematocrit 32.3 % (37.0-47.0) L Mean Corpuscular Volume 92 FL (80-99) Mean Corpuscular Hemoglobin 26.2 PG (27.0-31.0) L Mean Corpuscular Hemoglobin Concent 28.5 G/DL (32.0-36.0) L Red Cell Distribution Width 24.2 % (11.6-14.8) H Platelet Count 127 K/UL (150-450) L Mean Platelet Volume 6.3 FL (6.5-10.1) L Neutrophils (%) (Auto) 81.9 % (45.0-75.0) H Lymphocytes (%) (Auto) 6.9 % (20.0-45.0) L Monocytes (%) (Auto) 9.7 % (1.0-10.0) Eosinophils (%) (Auto) 0.9 % (0.0-3.0) Basophils (%) (Auto) 0.6 % (0.0-2.0) Sodium Level 145 mEQ/L (135-145) Potassium Level 3.8 mEQ/L (3.4-4.9) Chloride Level 96 mEQ/L (98-107) L Carbon Dioxide Level 36 mEQ/L (20-30) H Anion Gap 13 (5-15) Blood Urea Nitrogen 39 mg/dL (7-23) #H Creatinine 3.0 mg/dL (0.5-0.9) H Estimat Glomerular Filtration Rate mL/min (>60) Glucose Level 104 mg/dL (74-106) Uric Acid 4.7 mg/dL (3.0-7.5) Calcium Level 9.0 mg/dL (8.6-10.2) Phosphorus Level 4.3 mg/dL (2.5-4.8) Magnesium Level 1.8 mg/dL (1.7-2.5) Total Bilirubin 0.8 mg/dL (0.0-1.2) Gamma Glutamyl Transpeptidase 30 U/L (5-36) Aspartate Amino Transf (AST/SGOT) 18 U/L (5-40) Alanine Aminotransferase (ALT/SGPT) 5 U/L (3-33) Alkaline Phosphatase 53 U/L (35-104) Total Creatine Kinase 52 U/L (26-140) C-Reactive Protein, Quantitative 3.1 mg/dL (< 0.5) H Pro-B-Type Natriuretic Peptide 24259 pg/mL (0-450) H Total Protein 8.4 g/dL (6.6-8.7) Albumin 3.4 g/dL (3.5-5.2) L Globulin 5.0 g/dL Albumin/Globulin Ratio 0.6 (1.0-2.7) L JULIO MUNOZ Jan 30, 2017 18:55
[2017-01-30 20:00] VITALS: BP 133/56
[2017-01-30] MEDS ORDERED: Dyna-Hex 2% Top Sol 2oz TOPIC SCH (20:00)
--- NOTE | 2017-02-01 13:51 | Discharge Summary ---
Discharge Summary Hospital Course Date of Admission Jan 22, 2017 at 05:53 Date of Discharge Jan 30, 2017 at 21:10 Admitting Diagnosis respiratory distress HPI Leny Perez is a 76 year old female who was admitted on Jan 22, 2017 at 05:53 for Respiratory Distress Hospital Course dc summary #[id number] Discharge Condition Upon Discharge: stable Discharge Disposition Patient was discharged to SNF/Subacute Facility(03) Discharge Diagnoses: Discharge Instructions Discharge Instructions Special Instructions I have been assigned to complete a D/C Summary on this account. I was not involved in the patient management Celina Durham NP (Vanchtein) Feb 01, 2017 13:51
--- NOTE | 2017-02-02 06:15 | Discharge Summary 2 SIG ---
DATE OF ADMISSION: 01/22/2017 DATE OF DISCHARGE: 01/30/2017 CONSULTANTS: 1. Noe Boone M.D., chief marketing officer. 2. Cher Worthington M.D., boat canvas maker and installer. 3. Randy Sloan M.D., ID specialist. 4. Ra Moise M.D., command post craftsman. 5. Rodrick Null M.D., psychiatrist. BRIEF HOSPITAL STAY: 76-year-old female from [facility] with past medical history significant for diabetes mellitus, atrial fibrillation/flutter, morbid obesity, chronic kidney disease, history of colon cancer, congestive heart failure, gastroesophageal reflux disease, nonambulatory, baseline dementia, presented with hypoxia. Per sharepoint application architect, the patient was saturating 75% on room air and came to 95% with nasal cannula. In the emergency department, the patient was found to be tachypneic and hypoxemic. ABG revealed acute respiratory acidosis. Chest x-ray showed fluid overload. Pro BNP was significantly elevated -24,049. Troponin was negative, BUN and creatinine were 67 and 3.3 respectively. Urinalysis showed evidence of urinary tract infection. No leukocytosis. Lactic acid -1.2 The patient was admitted. The patient was initially diuresed with Lasix drip and Metolazone. The patient was started on empiric antibiotics. The patient was initially placed on the BiPAP. Supplemental oxygen and pulmonary toilet were provided. The patient was DNR status from the [facility] facility; however, POLST form was not appropriately filled in and therefore, the patient was a Full code until a conversation with durable power of workers compensation attorney, who confirmed DNR status,took place. Since that the patient DNR/DNI status. Echocardiogram revealed preserved ejection fraction of 65% to 70% and right ventricular systolic pressure of 93 consistent with severe pulmonary hypertension as well as evidence of the right side heart failure and volume overload, severe tricuspid regurgitation and moderate mitral regurgitation. Venous duplex of bilateral lower extremities revealed no evidence of acute DVT. Initial EKG showed atrial fibrillation with T-wave inversion in lead I and aVL. Sneller Hand closely followed. No anticoagulation due to the recent GI bleeding requiring blood transfusion. Per chief marketing officer, the patient had an acute congestive right sided heart failure. Pro BNP was without change. Last chest x-ray revealed no significant change. Renal ultrasound was nondiagnostic. Followup chest x-ray revealed no significant changes. Renal parameters without any improvement. Barrel Stave Inspector closely followed the patient. The patient initially was on Lasix drip along with metolazone for the first three days without change in renal parameters. Decision was made to insert hemodialysis catheter and start the patient on hemodialysis. Temporary Zachary catheter was placed by Interventional Radiology via right internal jugular vein. The patient had subsequently undergone hemodialysis . BUN down to 39 and creatinine -3.0 prior to transfer. Electrolyte abnormalities were addressed by command post craftsman as needed. The patient initially was on antibiotics. Urine culture revealed E. coli ESBL with colony count over 100,000. Blood cultures were negative. Infectious Diseases doctor stated that the patient has pyuria and ESBL bacteriuria. The patient was afebrile. No leukocytosis. ID specialist recommended to monitor CBC, BMP, and temperature. The patient off antibiotics; unless febrile, leukocytosis, or hemodynamic instability , then start antibiotics. Subsequently, the patient was able to be weaned from the BiPAP to Venturi mask. Shortness of breath was secondary to congestive heart failure exacerbation and mild hypercapnia, patient demonstrated some improvement prior to transfer. Aspiration precautions were maintained. Counts were closely watched. Anemia remained on the baseline. No need for transfusion. Anemia workup revealed evidence of anemia of chronic disease. DVT prophylaxis provided. Bowel regimen instituted. Blood sugar was managed with sliding scale of insulin. Wound care nurse had seen and evaluated the patient. The patient had present on admission intertrigo rash. Wound care provided as per wound care nurse recommendation. Psychiatrist had seen and evaluated the patient, and diagnosed her with encephalopathy secondary to general medical condition. Psychiatrist recommended to treat general condition as well as provide the patient with supportive therapy and reality orientation. The patient was DNR/DNI status. The patient required further treatment. Transfer was arranged to [facility] for long-term care. FINAL DIAGNOSES: 1. Acute hypoxemic respiratory failure requiring BiPAP. 2. Congestive heart failure with right heart failure. 3. Acute renal failure on chronic kidney disease requiring hemodialysis ( new start hemodialysis) 4. Morbid obesity. 5. Obstructive sleep apnea. 6. Diabetes mellitus type 2. 7. Anemia. 8. Atrial fibrillation. 9. Pulmonary hypertension. 10. Severe tricuspid regurgitation. 11. Moderate mitral regurgitation. 12. Acute encephalopathy secondary to general medical condition. 13. Intertrigo rash, present on admission. 14. Pyuria/Extended Spectrum Beta-Lactamases bacteriuria. DISCHARGE MEDICATION: List of medication was sent to admitting facility. DISCHARGE INSTRUCTION: The patient was transferred to [facility] for long-term acute care. FOLLOWUP: Follow up with medical doctor at the facility. Jaren Jones M.D. I have been assigned to dictate discharge summary on this account and I was not involved in the patient's management. Celina Durham (Dineshboo NDoug DR: DORY JOB#: [id number] CC: ANALI
== END 2017-01-30 21:10 | DRG 291 ==
LOC: EDBD 04:03 → EMR 04:45 → 2W 05:53
PROC: 5A09357 Assistance with Respiratory Ventilation, Less than 24 Consecutive Hours, Continuous Positive Airway Pressure (ICD-10-PCS; principal; 2017-01-22)
PROC: 02HV33Z Insertion of Infusion Device into Superior Vena Cava, Percutaneous Approach (ICD-10-PCS; 2017-01-26)
PROC: 5A1D70Z Performance of Urinary Filtration, Intermittent, Less than 6 Hours Per Day (ICD-10-PCS; 2017-01-27)
DX: I50.33 Acute on chronic diastolic (congestive) heart failure (principal); J96.01 Acute respiratory failure with hypoxia; G93.49 Other encephalopathy; N17.9 Acute kidney failure, unspecified; Z68.42 Body mass index [BMI] 45.0-49.9, adult; E66.01 Morbid (severe) obesity due to excess calories; I27.20 Pulmonary hypertension, unspecified; I36.1 Nonrheumatic tricuspid (valve) insufficiency; N39.0 Urinary tract infection, site not specified; N18.9 Chronic kidney disease, unspecified; G47.33 Obstructive sleep apnea (adult) (pediatric); Z85.038 Personal history of other malignant neoplasm of large intestine; E11.9 Type 2 diabetes mellitus without complications; Z79.4 Long term (current) use of insulin; Z66 Do not resuscitate; I34.0 Nonrheumatic mitral (valve) insufficiency; L30.4 Erythema intertrigo; Z86.718 Personal history of other venous thrombosis and embolism; I50.810 Right heart failure, unspecified; Z92.3 Personal history of irradiation; I48.2 Chronic atrial fibrillation; D63.1 Anemia in chronic kidney disease; K21.9 Gastro-esophageal reflux disease without esophagitis
CPT/HCPCS: 36415; 36569; 36600; 71010; 76775; 76937; 80048; 80053; 80061; 81001; 81003; 81050; 82378; 82550; 82553; 82575; 82607; 82728; 82746; 82803; 82962; 82977; 83036; 83540; 83550; 83605; 83615; 83735; 83880; 84100; 84133; 84156; 84300; 84443; 84484; 84550; 85007; 85025; 85044; 85060; 85610; 85651; 85730; 86140; 87040; 87081; 87086; 87181; 89050; 93005; 93306; 93970; 94660; 94664; 94760; J1815; J8499